=== PATIENT | female | born 1970 | race Caucasian/White ===

== ENCOUNTER 2017-10-30 07:30 | Outpatient (RCR) | payer OTHER, SELFPAY ==
--- NOTE | 2017-09-24 08:59 | HP.PTEVAL_ITS ---
Patient's Visit Information LISBETH VALDEZ is a 47 year old F referred to Physical Therapy by Peter ROSSI with a diagnosis of Back Pain. Date of Evaluation: 09/24/17 Physical Therapist: Lubna Gaston - Visit Plan Frequency: 2x /Week Duration: 4 Weeks Plan: 2X/ week for 4 weeks for core stability, L nerve root stretching, LE strength, functional activities with HEP and modalitites PRN - Subjective Subjective: Pt has LBP. It started 3 weeks ago and was doing injections with Dr Patino and was doing ok and now it is worse again. She has bulging discs L4- S1. That was confirmed on MRI and just had an x-ray last week. She reports that she has arthritis and bone spurs. Dr Patino said that she needed to do PT and then follow up with him. They arpproved a steroid injection which she will have to schedule with them. Pt has dull pain in butt cheek and sometimes into calf. Today pain is just in her back. He back is worse with all activity. Pt stands for almost 9 hours a day and then she sits down in her car toget home and it is then really tough to get up from sitting. Pt sleeps ok...sometimes it wakes her up achying and she has to get out of the bed. No N&T. Once in awhile she will get some numbess in last 3 toes but it goes away quicly. 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 Naproxin has not helped. She just wants to be able to play with her graddaughter but after she leaves she is in a lot of pain. - Pain Back Pain Intensity (Out of 10): 5 R leg pain Pain Intensity (Out of 10): 2 L leg pain Pain Intensity (Out of 10): 2 - Objective + Slump test on the L for pain in her back and -Slump test on the R. Gait: Walks with decrease stance time on the L LE. Trunk AROM: Flexion 100%, Ext 50 % with more extension on the R compared to the L. SB B 50% normal ROM, Rotation 75% normal ROM. LE MMT: hip flex B 4+/5, Knee ext 4/5 B, and Knee felx 4/5 B, hip abd L 4/5 and R 4+/5, B hip ext 4-/5. Prone lying: initially pt had pain right in center of her back. After lying there for 2 min pt reported that her back pain was not as bad. After another 2 min the pt reported that she had some center of back pain and then some R anterior thigh pain. Prone Press ups X 10 (abolished R thigh pain and then center of back pain was alitte relieved) Tried a second set of 10.....pt reported a weird pain in her R buttcheek.... - Goals Goal 1:: I HEP Goal Time Frame: 4-6 Weeks Goal 2:: Decrease back pain to 1/10 after a long work day Goal Time Frame: 4-6 Weeks Goal 3:: No pain with SLUMP test on the L Goal Time Frame: 4-6 Weeks Goal 4:: Walk with out an antalgic gait Goal Time Frame: 4-6 Weeks - Rehabilitation Potential Rehabilitation Potential: Good - Anticipated Interventions Patient/Client Instruction: Educate patient on: Condition, Plan of Care For the Purpose of:: To decrease pain, To decrease swelling/inflammation, To increase ROM, To improve nutrient delivery to tissue, To improve muscle performance and motor function, To improve ability to perform ADL's, To increase tolerance to activity/condition/position, To improve performance and independence with ADL's, To improve gait and locomotor functions, To improve health of tissue, To increase flexibility/ROM Therapeutic Exercise to Include: Strength training, Body mechanics, Postural training, Flexibilty training, Gait and locomotor training, Neuromotor development, Active ROM, Dynamic Lumbar Stabilization For the Purpose of:: To decrease pain, To decrease swelling/inflammation, To increase ROM, To improve nutrient delivery to tissue, To improve muscle performance and motor function, To increase tolerance to activity/condition/ position, To improve gait and locomotor functions, To improve health of tissue, To decrease soft tissue restriction, To increase flexibility/ROM Functional Training to Include: Gait training For the Purpose of:: To improve gait and locomotor functions IF ES: Yes Cryotherapy (ice pack, ice massage): Yes Thermo therapy (hot pack): Yes Ultrasound (thermal/non thermal): Yes For the Purpose of:: To decrease pain, To decrease swelling/inflammation, To increase ROM, To improve nutrient delivery to tissue Thank you for the opportunity to evaluate your patient. For Medicare and Medicare HMO plans, please review the plan of care and approve it. It will need to be FAXED BACK to us at [phone] for Medicare purposes. Please let me know if there are questions or concerns regarding this plan of care. Physician Signature: Date:
--- NOTE | 2018-02-01 14:12 | HP.PTDCNRP_ITS ---
HP - Discharge Summary (1) - Patient Information LISBETH VALDEZ was seen in my office for initial evaluation on 09/24/17. The following Plan of Care was established for this patient: Initial Frequency: 2x /Week Initial Duration: 4 Weeks - Anticipated Interventions Patient/Client Instruction: Educate patient on: Condition, Plan of Care For the Purpose of:: To decrease pain, To decrease swelling/inflammation, To increase ROM, To improve nutrient delivery to tissue, To improve muscle performance and motor function, To improve ability to perform ADL's, To increase tolerance to activity/condition/position, To improve performance and independence with ADL's, To improve gait and locomotor functions, To improve health of tissue, To increase flexibility/ROM Therapeutic Exercise to Include: Strength training, Body mechanics, Postural training, Flexibilty training, Gait and locomotor training, Neuromotor development, Active ROM, Dynamic Lumbar Stabilization For the Purpose of:: To decrease pain, To decrease swelling/inflammation, To increase ROM, To improve nutrient delivery to tissue, To improve muscle performance and motor function, To increase tolerance to activity/condition/ position, To improve gait and locomotor functions, To improve health of tissue, To decrease soft tissue restriction, To increase flexibility/ROM Functional Training to Include: Gait training For the Purpose of:: To improve gait and locomotor functions IF ES: Yes Cryotherapy (ice pack, ice massage): Yes Thermo therapy (hot pack): Yes Ultrasound (thermal/non thermal): Yes For the Purpose of:: To decrease pain, To decrease swelling/inflammation, To increase ROM, To improve nutrient delivery to tissue This patient was last seen in our office 10/30/17. Pertinent comments regarding their Physical therapy will appear below: [facility] as pt was ill for her last appointment and did not reschedule At this point I will be discontinuing this patient from physical therapy. I would be happy to see this patient again in the future if found appropriate by the physician. Thank you! Lubna Gaston
== END 2017-10-30 19:00 | disposition home or self-care (01) ==
LOC: PT 07:30
PROVIDERS: Family Provider Family Medicine; PCP Family Medicine; Visit Provider Anesthesiology Pain Medicine
DX: M54.9 Dorsalgia, unspecified (principal)
CPT/HCPCS: 97110; 97161

== ENCOUNTER → 2018-05-22 08:24 | Outpatient (CLI) | payer OTHER, SELFPAY ==
[2018-05-22 12:11] LABS: Absolute Lymphocyte Count 2.47 X10^3/ul (0.83-4.51); Absolute Neutrophil Count 5.7 X10^3/uL (2.0-7.7); Basophil# 0.03 X10^3/uL; Basophil% 0.3 % (0-1); Eosinophil# 0.09 X10^3/uL; Hematocrit 40.2 % (37-47); Hemoglobin 13.1 g/dl (12.0-15.0); Lymphocyte # 2.47 X10^3/ul (4.0); Lymphocyte % 28.4 % (19-41); Mean Corp Hgb Conc 32.6 g/gl (32-36); Mean Corpuscular Hgb 30.3 pg (27.0-32.0); Mean Corpuscular Volume 93.1 fL (81-99); Mean Platelet Vol. 9.3 fl (6.2-12.0); Monocyte# 0.45 X10^3/uL; Monocyte% 5.2 % (0-10); Neutrophil # 5.65 X10^3/uL (2.7-7.7); POSITIVE COUNT NO; POSITIVE DIFFERENTIAL NO; POSITIVE MORPHOLOGY NO; Platelet Count 399 K/mm3 (150-450); RBC Distribution Width CV 13.7 % (11.6-14.6); RBC Distribution Width SD 46.7 fl (35.1-43.9); Red Blood Count 4.32 M/mm3 (4.2-5.4); White Blood Count 8.7 K/mm3 (4.4-11.0)
[2018-05-22 12:34] LABS: AST(SGOT) 15 U/L (15-37); Alanine Aminotransfer ALT/SGPT 26 U/L (13-56); Albumin, Serum 3.6 g/dL (3.2-5.0); Alkaline Phosphatase 96 U/L (45-117); Anion Gap 9 (5-15); BUN 23 mg/dL (7-18); BUN/Creat Ratio 33.3 RATIO (10-20); Chloride 108 mmol/L (98-107); Cholesterol 176 mg/dL (200); Creatinine, Serum 0.69 mg/dL (0.55-1.02); EST Glomerular Filtration Rate 96 mL/min (>60); Est Glom Filt Rate - Afr Amer 116 mL/min (>60); Globulin 3.5 g/dL (2.2-4.2); Glucose 86 mg/dL (74-106); High Density Lipoprotein 51 mg/dL; Magnesium 2.2 mg/dL (1.6-2.6); Protein, Total 7.1 g/dL (6.4-8.2); Sodium Level 142 mmol/L (136-145); T4 Free Direct 0.96 ng/dL (0.76-1.46); Thyroid Stim Hormone (TSH) 3.19 uIU/mL (0.358-3.74); Triglycerides 102 mg/dL; Very Low Density Lipoprotein 20 mg/dL (5-40)
== END ==
PROVIDERS: Family Provider Family Medicine; PCP Family Medicine; Visit Provider Family Medicine
DX: Z00.01 Encounter for general adult medical examination with abnormal findings (principal); R00.2 Palpitations; R53.83 Other fatigue; I34.1 Nonrheumatic mitral (valve) prolapse; Z72.0 Tobacco use
CPT/HCPCS: 36415; 80053; 80061; 82533; 83735; 84439; 84443; 85025

== ENCOUNTER → 2018-05-29 08:57 | Outpatient (CLI) | payer OTHER, SELFPAY | PROVIDERS: Family Provider Family Medicine; PCP Family Medicine; Visit Provider Family Medicine | DX: R00.2 Palpitations (principal); I34.1 Nonrheumatic mitral (valve) prolapse | CPT/HCPCS: 93225; 93226 ==

== ENCOUNTER → 2018-08-05 11:58 | Outpatient (CLI) | payer OTHER, SELFPAY ==
--- NOTE | 2018-08-05 12:00 | ECHOD_ITS ---
Reason For Study: Palpitations Procedure This was a 2D Doppler, Color Flow transthoracic echocardiogram. Exam performed in department. Left Ventricle Normal LV size. Left ventricular systolic function is normal. The estimated ejection fraction is 60 %. Transmitral and pulmonary venous doppler flow suggestive of impaired relaxation of left ventricle. Transmitral diastolic flow velocities suggest mild (stage 1) diastolic dysfunction (reversed pattern). No regional wall motion abnormalities noted. Right Ventricle Normal RV size. Normal systolic function. Atria Normal left atrium. Normal right atrium. Mitral Valve Normal mitral valve. Tricuspid Valve Normal tricuspid valve. Aortic Valve Trisinus/trileaflet aortic valve. Pulmonic Valve Normal pulmonic valve. Great Vessels Normal aortic root. The pulmonary artery is normal size. Normal inferior vena cava. Pericardium/Pleural No pericardial effusion. MMode/2D Measurements & Calculations LVIDd: 4.7 cm IVSd: 0.95 cm Ao root diam: 3.1 cm LVIDs: 3.5 cm LVPWd: 0.89 cm RVDd: 3.1 cm FS: 25.3 % LAV(MOD-bp): 33.3 ml LVAd ap4: 25.6 cm2 SV(MOD-sp4): 37.7 ml LAV(MOD-bp) Indexed: 18.0 ml/m2 EDV(MOD-sp4): 72.1 ml LAV(MOD-sp2): 32.8 ml EDV(sp4-el): 73.7 ml LAV(MOD-sp4): 29.9 ml LVAs ap4: 15.9 cm2 ESV(MOD-sp4): 34.5 ml ESV(sp4-el): 34.4 ml EF(MOD-sp4): 52.2 % EF(sp4-el): 53.4 % SV(sp4-el): 39.3 ml LA A4 area: 13.6 cm2 LA dimension(2D): 3.4 cm RA A4 area: 11.1 cm2 Doppler Measurements & Calculations MV E max oswaldo: 64.6 cm/sec Lat Peak E' Oswaldo: 14.5 cm/sec Med Peak E' Oswaldo: 6.1 cm/sec MV A max oswaldo: 80.5 cm/sec E/E' lat: 4.5 E/E' med: 10.5 MV E/A: 0.80 Ao V2 max: 134.5 cm/sec LV V1 max: 105.2 cm/sec PA V2 max: 80.9 cm/sec Ao max P.2 mmHg LV V1 max P.4 mmHg Ao V2 mean: 102.1 cm/sec Ao mean P.4 mmHg Ao V2 VTI: 27.9 cm Interpretation Summary Normal LV size. Left ventricular systolic function is normal. The estimated ejection fraction is 60 %. Transmitral and pulmonary venous doppler flow suggestive of impaired relaxation of left ventricle Transmitral diastolic flow velocities suggest mild (stage 1) diastolic dysfunction (reversed pattern). Ordering Physician: Kristan Lewis Referring Physician: Ambrose Olivares Performed By: Susan Lopez RDCS, RVT
--- NOTE | 2018-08-05 12:35 | STRESSREP ---
Stress Test Report Exercise stress test. 47-year-old lady with a history of palpitations. Stress protocol: Resting EKG demonstrates normal sinus rhythm with a rate of 79 bpm normal intervals are noted resting blood pressure 126/78 mmHg. The patient exercised according to regular Wyatt protocol for total duration of 6 minutes completing stage II of the Wyatt protocol the maximum heart rate attained was 171 bpm which was 99% of maximum predicted heart rate the maximum workload was 7 metabolic equivalents. The patient maintained sinus rhythm throughout the recording. At rest there were nonspecific ST-T wave changes noted with normally the criteria for ischemia. At peak exercise there was approximately [address] depression noted in leads II, III and aVF V5 and V6. The above appears to improved to upsloping changes during recovery. No chest pain was noted. The resting blood pressure 126/78 with a peak blood pressure of 146/70 mmHg rate pressure product was 24,900. No clinical angina was noted the test was terminated due to leg pain. Conclusion: Exercise stress test with EKG changes suggestive of ischemia at a moderate workload. Good blood pressure response to exercise. No arrhythmias noted.
--- NOTE | 2018-08-05 12:40 | STRESSREP_ITS ---
Stress Test Report Exercise stress test. 47-year-old lady with a history of palpitations. Stress protocol: Resting EKG demonstrates normal sinus rhythm with a rate of 79 bpm normal intervals are noted resting blood pressure 126/78 mmHg. The patient exercised according to regular Wyatt protocol for total duration of 6 minutes completing stage II of the Wyatt protocol the maximum heart rate attained was 171 bpm which was 99% of maximum predicted heart rate the maximum workload was 7 metabolic equivalents. The patient maintained sinus rhythm throughout the recording. At rest there were nonspecific ST-T wave changes noted with normally the criteria for ischemia. At peak exercise there was approximately [address] depression noted in leads II, III and aVF V5 and V6. The above appears to improved to upsloping changes during recovery. No chest pain was noted. The resting blood pressure 126/78 with a peak blood pressure of 146/70 mmHg rate pressure product was 24,900. No clinical angina was noted the test was terminated due to leg pain. Conclusion: Exercise stress test with EKG changes suggestive of ischemia at a moderate workl oad. Good blood pressure response to exercise. No arrhythmias noted.
--- OUTSIDE RECORDS SUMMARY | 2018-09-28 18:16 | XMS RPT_ITS ---
:1970 Author Organization [place] Support Name Relationship Address Phone MABLE MARATHON Unavailable [address] + [place] [address] AYANNA VALDEZ Unavailable [address] + [place] [address] MABLE MARATHON Unavailable [address] + [place] [address] AYANNA VALDEZ Unavailable [address] + [place] [address] DALES MARATHON Unavailable [address] + [place] [address] AYANNA VALDEZ Unavailable [address] + [place] [address] DALES MARATHON Unavailable [address] + [place] [address] AYANNA VALDEZ Unavailable [address] + [place] [address] DALES MARATHON Unavailable [address] + [place] [address] AYANNA VALDEZ Unavailable [address] + [place] [address] DALES MARATHON Unavailable [address] + [place] [address] AYANNA VALDEZ Unavailable [address] + [place] [address] DALES MARATHON Unavailable [address] + [place] [address] AYANNA VALDEZ Unavailable [address] + [place] [address] DALES MARATHON Unavailable [address] + [place] [address] AYANNA VALDEZ Unavailable [address] + [place] [address] DALES MARATHON Unavailable [address] + [place] [address] COURTNEY AYANNA Unavailable [address] + [place] [address] DALES MARATHON Unavailable [address] + [place] [address] AYANNA VALDEZ Unavailable [address] + [place] [address] DALES MARATHON Unavailable [address] + [place] [address] COURTNEY AYANNA Unavailable [address] + [place] [address] DALES MARATHON Unavailable [address] + [place] [address] COURTNEY AYANNA Unavailable [address] + [place] [address] DALES MARATHON Unavailable [address] + [place] [address] COURTNEY AYANNA Unavailable [address] [phone] [place] [address] DALES MARATHON Unavailable [address] + [place] [address] COURTNEY AYANNA Unavailable [address] [phone] [place] [address] Care Team Providers Name Role Phone Peter Patino Attending Unavailable Peter Patino Referring Unavailable Ambrose Olivares Primary Care Unavailable Peter Patino Attending Unavailable Peter Patino Referring Unavailable Ambrose Olivares Primary Care Unavailable Ambrose Olivares Attending Unavailable Ambrose Olivares Primary Care Unavailable Ambrose Olivares Attending Unavailable Ambrose Olivares Referring Unavailable Ambrose Olivares Primary Care Unavailable Lio Renteria Attending Unavailable Ambrose Olivares Referring Unavailable Ana Serrano Attending Unavailable Martin, [place] Attending Unavailable Elise, Ambrose Referring Unavailable Martin, Nicolás Attending Unavailable Martin, Nicolás Referring Unavailable Elise, Ambrose Primary Care Unavailable Elise, Ambrose Attending Unavailable Elise, Ambrose Referring Unavailable Elise, Ambrose Primary Care Unavailable Martin, [place] Attending Unavailable Martin, Nicolás Referring Unavailable Elise, Ambrose Primary Care Unavailable Martin, Nicolás Attending Unavailable Martin, [place] Referring Unavailable Elise, Ambrose Primary Care Unavailable Martin, Nicolás Consulting Unavailable Martin, [place] Attending Unavailable Martin, Nicolás Referring Unavailable Elise, Ambrose Primary Care Unavailable Martin, [place] Attending Unavailable Elise, Ambrose Referring Unavailable Ana Serrano Attending Unavailable PROBLEMS PROBLEMS DATE TYPE CONDITION / CODE ATTENDING STATUS SOURCE 08/09/2018 Unknown R00.2 - Palpitations / Martin, Nicolás Active [facility] R00.2(ICD-10) [facility] Repository 08/09/2018 Unknown I34.1 - Nonrheumatic Martin, Nicolás Active [facility] mitral (valve) Community prolapse / Hospital I34.1(ICD-10) Repository 08/09/2018 Unknown Z72.0 - Tobacco use / Martin, Nicolás Active [facility] Z72.0(ICD-10) [facility] Repository 08/09/2018 Unknown I47.1 - Martin, [place] Active [place] Supra[facility]ricular [facility] tachycardia / Hospital I47.1(ICD-10) Repository 08/09/2018 Unknown I47.2 - Ventricular Martin, Nicolás Active [facility] tachycardia / Community I47.2(ICD-10) Hospital Repository 08/09/2018 Unknown I73.9 - Peripheral Martin, Nicolás Active [facility] vascular disease, Community unspecified / Hospital I73.9(ICD-10) Repository 08/09/2018 Unknown R07.9 - Chest pain, Martin, Nicolás Active [facility] unspecified / Community R07.9(ICD-10) Hospital Repository 08/09/2018 Unknown R94.39 - Abnormal Martin, [place] Active [place] result of other [facility] function study / Repository R94.39(ICD-10) 05/22/2018 Unknown R53.83 - Other fatigue Ambrose Olivares Active [facility] / R53.83(ICD-10) [facility] Repository 05/22/2018 Unknown Z00.01 - Encounter for Ambrose Olivares Active [place] [facility] examination with Hospital abnormal findings / Repository Z00.01(ICD-10) 02/01/2018 Unknown M54.9 - Dorsalgia, Basali, Ayman Active [facility] unspecified / Community M54.9(ICD-10) Hospital Repository PROCEDURES PROCEDURES No Procedure Records FoundRESULTS RESULTS OFFICE VISIT REPORT Observed: 08/08/2018 Status: F Source: [facility]I 8:21 AM [facility]POS[facility] Services [address] [place] [address] OFFICE VISIT Date of Service: MR#: [id number] Acct: [id number] Patient: LISBETH VALDEZ Rep #: [id number] : 1970 Provider: Ana Serrano Age/Sex: 47/F Location: [facility] [place] Status: Signed Intake Intake Visit Reasons: Amb Documentation Allergies egg Allergy (Verified 07/12/18 10:17) Unknown lactose Allergy (Verified 07/12/18 10:17) Food Allergy Medications Montelukast [Singulair] 10 mg PO DAILY 05/31/16 [History Confirmed 07/12/18] Venlafaxine HCl [Effexor] 75 mg PO DAILY 05/31/16 [History Confirmed 07/12/18] ascorbic acid (vitamin C) 1,000 mg tablet 1 g PO DAILY tab 07/11/18 [History Confirmed 07/12/18] aspirin 81 mg tablet,delayed release 81 mg PO DAILY 07/11/18 [History Confirmed 07/12/18] metoprolol succinate ER 50 mg tablet,extended release 24 hr 50 mg PO DAILY 07/11/18 [History Confirmed 07/12/18] multivitamin tablet 1 tab PO DAILY 07/11/18 [History Confirmed 07/12/18] topiramate XR 25 mg capsule,extended release 24 hr 25 mg PO BID cap 07/11/18 [History Confirmed 07/12/18] calcium carb-vit D3-minerals 600 mg calcium-400 unit tablet 1 tab PO DAILY 07/12/18 [History Confirmed 07/12/18] cholecalciferol (vitamin D3) 1,000 unit capsule 1,000 unit PO DAILY 07/12/18 [History Confirmed 07/12/18] meloxicam 15 mg tablet 15 mg PO DAILY 07/12/18 [History Confirmed 07/12/18] clopidogrel 75 mg tablet 75 mg PO DAILY #30 tab 08/06/18 [Rx Confirmed 08/06/18] Nursing Note Cardiac catheterization teaching completed and instructions reviewed. 08/08/18 0821 <Electronically signed by Rosalino PATEL> Date Rosalino PATEL Cosigner Signature: Date (if applicable) CC: CHEST PA AND LATERAL Observed: 08/08/2018 Status: F Source: [facility] 7:27 AM [facility] REPOSITORY [facility] Imaging Services [address] [place] [id number] Chest PA and Lateral MR#: [id number] Acct: [id number] Name: LISBETH VALDEZ Rep #: [id number] : 1970 F 47 From: Alexander Armendariz MD PCP: Ambrose Olivares DO Status: PRE [facility] Study: Chest PA and Lateral Date of Exam: 08/08/18 Exam# [id number] Ordering Dr: Nicolás Salazar MD STUDY: X-RAY CHEST REASON FOR EXAM: Female, 47 years old. Abnormal stress test. Chest pain. TECHNIQUE: PA and lateral views of the chest. COMPARISON: None. FINDINGS: The lungs are clear and expanded. Scattered calcified granulomas There is no demonstrated pleural abnormality. Normal size heart. Normal mediastinum and blanca. Normal visualized pulmonary arteries. Normal visualized aortic arch and descending thoracic aorta. Normal visualized thoracic spine. Normal visualized ribs, clavicles, and shoulders. There is no demonstrated abnormality of the visualized soft tissue structures of the upper abdomen. RAD/Chest PA and Lateral IMPRESSION: Normal x-ray examination of the chest. Electronically Signed: Alexander Armendariz MD at 10:42 EST Tel [phone], Service support , CC: Nicolás Salazar MD; Ambrose Olivares DO Client Business Manager: Signed CBC W/DIFF, AUTOMATED Collected: 08/08/2018 Status: F Source: NGOZI 7:23 AM [facility] REPOSITORY TYPE CODE TESTS RESULT OUT OF RANGE REFERENCE UNITS LAB L100.1000 4.4-11.0 K/mm3 Normal WBC 8.3 LAB L100.1200 4.2-5.4 M/mm3 Normal RBC 4.31 LAB L100.1300 12.0-15.0 g/dl Normal HGB 13.3 LAB L100.1400 37-47 % Normal HCT 40.0 LAB L100.1500 81-99 fL Normal MCV 92.8 LAB L100.1600 27.0-32.0 pg Normal MCH 30.9 LAB L100.1700 32-36 g/gl Normal MCHC 33.3 LAB L100.1810 11.6-14.6 % Normal RDW CV 12.8 LAB L100.1820 35.1-43.9 fl Normal RDW SD 41.9 LAB L100.1900 150-450 K/mm3 Normal PLT 411 LAB L100.2000 6.2-12.0 fl Normal MPV 9.3 LAB L100.2100 47-70 % Normal NEUT% 54.0 LAB L100.2200 19-41 % Normal LY% 36.2 LAB L100.2300 0-10 % Normal MONO% 7.5 LAB L100.2400 0-5 % Normal EO% 1.6 LAB L100.2500 0-1 % Normal BASO% 0.6 LAB L100.2550 0.0-0.9 % Normal IM GRAN % 0.100 Result Comment: IG% - Immature Granulocytes (promyelocytes, myelocytes and metamyelocytes) > 1% indicates that a LEFT SHIFT is Present. LAB L100.2620 2.0-7.7 X10 3/uL Normal Absolute Neut 4.5 LAB L100.2720 0.83-4.51 X10 3/ul Normal Absolute Lymph 3.00 Performed By: #### L100.0100 #### [facility] [address] [place], [place], [id number] BASIC METABOLIC Collected: 08/08/2018 Status: F Source: [facility] PROFILE (BMP) 7:23 AM [facility] REPOSITORY TYPE CODE TESTS RESULT OUT OF RANGE REFERENCE UNITS LAB L501.0100 74-106 mg/dL Normal GLU 85 Result Comment: Please note revised GLUCOSE reference range effective 2017. LAB L501.1000 7-18 mg/dL High BUN 25 LAB L501.1100 0.55-1.02 mg/dL Normal CREAT,SERUM 0.71 Result Comment: The validity of the calculated GFR AND GFRAA in patients over 70 years has not been determined. Clinical correlation is essential. LAB L501.1110 >60 mL/min Normal EST GFR 93 Result Comment: Non- GFR Calc LAB L501.1115 >60 mL/min Normal EST GFR - AA 112 Result Comment: GFR Calc LAB L501.1300 10-20 RATIO High BUN/CRE 35.1 LAB L501.2200 8.5-10.1 mg/dL CA Normal 8.9 LAB L501.5300 136-145 mmol/L NA Normal 144 LAB L501.5600 3.5-5.1 mmol/L K Normal 3.9 LAB L501.5900 98-107 mmol/L CL Normal 107 LAB L501.6100 21.0-32.0 mmol/L Normal CO2 28.0 LAB L501.6200 5-15 Normal GAP 9 Performed By: #### L500.2500 #### [facility] [address] [facility] [address] [place], [place], [address] PROTHROMBIN TIME W/INR Collected: 08/08/2018 Status: F Source: [place] 7:23 AM [facility] REPOSITORY TYPE CODE TESTS RESULT OUT OF RANGE REFERENCE UNITS LAB L300.4150 11.7-14.9 SECONDS Normal PROTIME 12.7 LAB L300.4200 Normal INR 1.0 Performed By: #### L300.3900 #### [facility] [address] [facility] [place], [address] ,SERUM,HCG QUALI. Collected: Status: F Source: NGOZI 08/08/2018 7:23 AM [facility] REPOSITORY Order Comment: Comments: please add to labs already drawn TYPE CODE TESTS RESULT OUT OF REFERENCE UNITS RANGE LAB L700.7000 0-9 Nonpreg Negative Normal HCGSQUAL NEGATIVE LAB L700.6700 =>Qualitative mIU/mL Normal HCG Qual 1 triggr Performed By: #### L700.6800 #### [facility] [address] [place], [address] ECHOCARDIOGRAM COMPLETE Observed: 08/05/2018 Status: F Source: NGOZI 3:12 PM [facility] REPOSITORY [facility] Cardiovascular Services [address] [place] [address] Echo Complete 08/05/18 1229 MR#: [id number] Acct: [id number] Name: LISBETH VALDEZ Rep #: [id number] : 1970 47 From: Nicolás Salazar MD Attending Dr: Nicolás Salazar MD Status: REG CLI Ordering Dr: Kristan Lewis Date: 08/05/18 Location: CVS Sex: F C Admitted: Reason For Study: Palpitations Procedure This was a 2D Doppler, Color Flow transthoracic echocardiogram. Exam performed in department. Left Ventricle Normal LV size. Left ventricular systolic function is normal. The estimated ejection fraction is 60 %. Transmitral and pulmonary venous doppler flow suggestive of impaired relaxation of left ventricle. Transmitral diastolic flow velocities suggest mild (stage 1) diastolic dysfunction (reversed pattern). No regional wall motion abnormalities noted. Right Ventricle Normal RV size. Normal systolic function. Atria Normal left atrium. Normal right atrium. Mitral Valve Normal mitral valve. Tricuspid Valve Normal tricuspid valve. Aortic Valve Trisinus/trileaflet aortic valve. Pulmonic Valve Normal pulmonic valve. Great Vessels Normal aortic root. The pulmonary artery is normal size. Normal inferior vena cava. Pericardium/Pleural No pericardial effusion. MMode/2D Measurements AND Calculations LVIDd: 4.7 cm IVSd: 0.95 cm Ao root diam: 3.1 cm LVIDs: 3.5 cm LVPWd: 0.89 cm RVDd: 3.1 cm FS: 25.3 % LAV(MOD-bp): 33.3 ml LVAd ap4: 25.6 cm2 SV(MOD-sp4): 37.7 ml LAV(MOD-bp) Indexed: 18.0 ml/m2 EDV(MOD-sp4): 72.1 ml LAV(MOD-sp2): 32.8 ml EDV(sp4-el): 73.7 ml LAV(MOD-sp4): 29.9 ml LVAs ap4: 15.9 cm2 ESV(MOD-sp4): 34.5 ml ESV(sp4-el): 34.4 ml EF(MOD-sp4): 52.2 % EF(sp4-el): 53.4 % SV(sp4-el): 39.3 ml LA A4 area: 13.6 cm2 LA dimension(2D): 3.4 cm RA A4 area: 11.1 cm2 Doppler Measurements AND Calculations MV E max oswaldo: 64.6 cm/sec Lat Peak E' Oswaldo: 14.5 cm/sec Med Peak E' Oswaldo: 6.1 cm/sec MV A max oswaldo: 80.5 cm/sec E/E' lat: 4.5 E/E' med: 10.5 MV E/A: 0.80 Ao V2 max: 134.5 cm/sec LV V1 max: 105.2 cm/sec PA V2 max: 80.9 cm/sec Ao max P.2 mmHg LV V1 max P.4 mmHg Ao V2 mean: 102.1 cm/sec Ao mean P.4 mmHg Ao V2 VTI: 27.9 cm Interpretation Summary Normal LV size. Left ventricular systolic function is normal. The estimated ejection fraction is 60 %. Transmitral and pulmonary venous doppler flow suggestive of impaired relaxation of left ventricle Transmitral diastolic flow velocities suggest mild (stage 1) diastolic dysfunction (reversed pattern). Ordering Physician: Kristan Lewis Referring Physician: Ambrose Olivares Performed By: Susan Lopez, NOEMY, RVT 08/05/18 0751 Date Nicolás Salazar MD CC: Nicolás Salazar MD; Ambrose Olivares DO; Kristan Lewis Date Dictated: 08/05/18 1229 Date Transcribed: 08/05/18 1511 Client Business Manager: Signed STRESS REPORT Observed: 08/05/2018 Status: F Source: NGOZI 12:41 PM [facility] REPOSITORY [facility] Cardiovascular Services [address] [place] [address] MR#: [id number] Acct: [id number] Name: LISBETH VALDEZ Rep #: [id number] : 1970 47 From: Nicolás Salazar MD Primary Care: Ambrose Olivares DO Status: REG CLI Ordering Dr: Sex: F C Stress Test Report Exercise stress test. 47-year-old lady with a history of palpitations. Stress protocol: Resting EKG demonstrates normal sinus rhythm with a rate of 79 bpm normal intervals are noted resting blood pressure 126/78 mmHg. The patient exercised according to regular Wyatt protocol for total duration of 6 minutes completing stage II of the Wyatt protocol the maximum heart rate attained was 171 bpm which was 99% of maximum predicted heart rate the maximum workload was 7 metabolic equivalents. The patient maintained sinus rhythm throughout the recording. At rest there were nonspecific ST-T wave changes noted with normally the criteria for ischemia. At peak exercise there was approximately [address] depression noted in leads II, III and aVF V5 and V6. The above appears to improved to upsloping changes during recovery. No chest pain was noted. The resting blood pressure 126/78 with a peak blood pressure of 146/70 mmHg rate pressure product was 24,900. No clinical angina was noted the test was terminated due to leg pain. Conclusion: Exercise stress test with EKG changes suggestive of ischemia at a moderate workload. Good blood pressure response to exercise. No arrhythmias noted. 08/05/18 1241 <Electronically signed by Nicolás Salazar MD> Date Nicolás Salazar MD CC: Nicolás Salazar MD; Ambrose Olivares DO Date Dictated: 08/05/18 1235 Date Transcribed: 08/05/18 1235 Client Business Manager: [place] Signed CARDIOLOGY VISIT Observed: 07/12/2018 Status: F Source: NGOZI REPORT 2:50 PM [facility] [address] [place] [address] OFFICE VISIT Date of Service: 07/12/18 MR#: [id number] Acct: [id number] Name: LISBETH VALDEZ Rep #: [id number] : 1970 Provider: Nicolás Salazar MD Age/Sex: 47/F [place] [facility] Status: Signed HPI HPI Chief Complaint: Initial visit Details: LISBETH VALDEZ, is a 47 F who presents to the office today for for initial visit. She is a pleasant lady with a history of palpitations as well as chest discomfort she complains of some of these chest pain episodes which are sharp and others which are dull. She is also been fatigued. She underwent a 48-hour Holter monitor which demonstrated rare premature atrial complexes as well as rare premature ventricular complexes. The patient had one 7 beat run of an atrial tachycardia at a rate of 164 bpm. She has had no maría elena syncopal spells. She had previously been using tobacco products but this has been discontinued. She has had no maría elena syncopal episodes. Her physical exam today demonstrates clear lung talbot regular rate and rhythm no pedal edema her electrocardiogram at rest demonstrates sinus bradycardia with a rate of 56 bpm. Intake Vital Signs07/12/18 Height 5 ft 3 in Intake Visit Reasons: PCP ref'd for tachy, BLE edema, needs stress Allergies egg Allergy (Verified 07/12/18 10:17) Unknown lactose Allergy (Verified 07/12/18 10:17) Food Allergy Medications Montelukast [Singulair] 10 mg PO DAILY 05/31/16 [History Confirmed 07/12/18] Venlafaxine HCl [Effexor] 75 mg PO DAILY 05/31/16 [History Confirmed 07/12/18] ascorbic acid (vitamin C) 1,000 mg tablet 1 g PO DAILY tab 07/11/18 [History Confirmed 07/12/18] aspirin 81 mg tablet,delayed release 81 mg PO DAILY 07/11/18 [History Confirmed 07/12/18] metoprolol succinate ER 50 mg tablet,extended release 24 hr 50 mg PO DAILY 07/11/18 [History Confirmed 07/12/18] multivitamin tablet 1 tab PO DAILY 07/11/18 [History Confirmed 07/12/18] topiramate XR 25 mg capsule,extended release 24 hr 25 mg PO BID cap 07/11/18 [History Confirmed 07/12/18] calcium carb-vit D3-minerals 600 mg calcium-400 unit tablet 1 tab PO DAILY 07/12/18 [History Confirmed 07/12/18] cholecalciferol (vitamin D3) 1,000 unit capsule 1,000 unit PO DAILY 07/12/18 [History Confirmed 07/12/18] meloxicam 15 mg tablet 15 mg PO DAILY 07/12/18 [History Confirmed 07/12/18] [facility] Medical History Claudication (Chronic) Nonrheumatic mitral valve prolapse (Chronic) Paroxysmal supraventricular tachycardia (Chronic) Nonsustained ventricular tachycardia (Chronic) Nicotine abuse (Chronic) Anxiety and depression (Chronic) Lumbar spondylosis (Chronic) Obesity (Chronic) Osteoarthritis (Chronic) Surgical History H/O arthroscopy of left knee (Resolved) History of (Resolved) History of hysterectomy (Resolved) History of rhinoplasty (Resolved) Family History Father Hypertension Mother Heart disease aneurysm CAD (coronary artery disease) Social History Smoking Status: Former smoker quit date: 07/01/18 ROS Const Const: Positive for fatigue (New onset over the past 3 month); negative for weakness, difficulty sleeping, frequent falls, excessive sweating or headache(s) Eyes Eyes: Negative for loss of peripheral vision, transient loss of vision, blurry vision, tunnel vision or double vision ENT ENT: Negative for headache(s), dizziness, Nosebleed/epistaxis or balance problems Cardio Chest Pain: Yes (New onset over the past 3 months) Frequency: daily, weekly Character: sharp, dull Onset: at rest, exercise Location: left chest Duration: continuous, hours Palpitations: Yes (Palpitations cause fatigue and SOB. Increase over past 3 months.) feels like its: fast, thumping Edema: None Muscle aches with walking: Bilateral (weakness with exertion, resolved with rest.) Resp Respiratory: Negative for SOB with activity, SOB at rest, SOB orthopnea\SOB lying down, paroxysmal nocturnal dyspnea or Cough GI GI: Negative nausea, heartburn, black,tarry stools or vomiting : Negative for hematuria Musc Musc: Negative for balance problems, muscle aches/ myalgia, muscle weakness or joint pain Skin Skin: Negative non-healing lesions, unusual bruising or rash Neuro Neuro: Positive for near syncope (Occasional episodes w/o palpitations); negative for weakness, frequent falls, headache(s), blurry vision, double vision, dizziness, lightheadedness, orthostatic symptoms, syncope or lack of coordination Nestor Hematologic/Lymphatic: Negative for easy bruising or easy bleeding Endo Endo: Positive for fatigue (New onset over the past 3 month); negative for excessive sweating or increased thirst/drinking Psych Psych: Negative for anxiety or depression Allergy Allergy/Immunology: Negative for hives, Negative for rash Cardiology Exam Const Appearance: cooperative, healthy appearing, well developed, well groomed and no acute distress Nutritional Appearance: well nourished and average body habitus Orientation: alert, awake and oriented x3 Head Head: normal to inspection, normocephalic and atraumatic Ears: hearing grossly normal bilaterally and external ears normal Nose: external nose normal, nasal mucous membranes and turbinates normal, nares normal, septum normal, no nasal discharge Face and Sinus: face symmetric Mouth: oral mucosae normal, tongue normal, oropharynx normal and moist mucous membranes Teeth and gingiva: dentition normal Throat: posterior oropharynx normal, tonsils normal and uvula midline Eyes General: appearance normal, both eyes and all related structures Eyelids: eyelids normal Conjunctivae: conjunctivae normal Pupils: PERRL, normal by confrontation and accommodation normal EOM: EOM intact bilaterally Neck Neck: normal visual inspection, trachea midline and no JVD JVD: +5 Carotids: normal carotid upstroke and bounding pulses Chest Chest inspection: normal inspection of the chest, symmetric chest movement and normal respiratory effort Auscultation: Bilateral: Clear to Auscultation Cardio Palpation: normal PMI Rate: regular rate Rhythm: regular rhythm Heart sounds: S1 normal, S2 normal and normal, physiologic split S2; negative rub, gallop or murmur GI GI: normal to inspection, soft, no hepatosplenomegaly and bowel sounds present Neuro General: alert, awake, oriented x3, no focal sensory deficit, gait normal and moves all extremities Skin Skin: no rashes or lesions noted Extremities Pulses: Normal: Right Femoral Pulse, Left Femoral Pulse, Right Dorsalis Pedis Pulse, Left Dorsalis Pedis Pulse, Right Posterior Tibial Pulse, Left Posterior Tibial Pulse, Right Radial Pulse, Left Radial Pulse Lower Extremity Edema: None: Bilateral Musculoskel Musculoskeletal: No joint tenderness Psych Psychological: normal affect Assessment AND Plan 1. Paroxysmal supraventricular tachycardia I47.1 Plan She is having symptoms of palpitations and had a short burst of a paroxysmal supraventricular tachyarrhythmia. I suspect some of these really a side effect of some of the medications that she has been taking. Her Holter monitor was not particularly remarkable my recommendation would be for us to obtain a stress echocardiogram to assess a her left ventricular function and be any propensity to tachyarrhythmia when she exercises. If the above is normal I would suggest that we discontinue the beta-lc and the aspirin. I have also discussed with her about the Topamax as well as the venlafaxine. The Topamax can have some issues with abnormal heart rate and the venlafaxine unfortunately may be associated with weight gain as you know. Thank you for allowing me to participate in the care of your patient. Please don't hesitate to call if any issues arise Orders Orders: Plan Detail Other Orders Orders: Follow Up prn Coding Level of Care Code Off vis,new,level 4 Diagnoses Paroxysmal supraventricular tachycardia I47.1 Coding Level of Care Code Off vis,new,level 4 Diagnoses Paroxysmal supraventricular tachycardia I47.1 07/12/18 1450 <Electronically signed by Nicolás Salazar MD> Date Nicolás Salazar MD Cosigner Signature: Date (if applicable) CC: Ambrose Olivares DO 12 LEAD EKG PERFORMED Observed: 07/12/2018 Status: F Source: NGOZI BY CHAMP 12:18 PM [facility] RE[facility] [place] [address] [place] [address] 12 Lead EKG performed by CHAMP 07/12/187 MR#: [id number] Acct: [id number] Name: LIBSETH VALDEZ Rep #: [id number] : 1970 47 From: Nicolás Salazar MD Attending Dr: Martin WARNER,Nicolás Status: DEP AMB Ordering Dr: Nicolás Salazar MD Date: 07/12/18 [place] [facility] Sex: F C Admitted[place] [facility] E[place] performed by [facility] Sinus Bradycardia -Short AR syndrome Rafat = 114BORDERLINE RHYTHM 07/18/18 1556 <Electronically signed by Nicolás Salazar MD> Date Nicolás Salazar MD CC: Ambrose Olivares DO Date Dictated: 07/12/181216 Date Transcribed: 07/12/181216 Client Business Manager: CO Signed CBC W/DIFF, AUTOMATED Collected: 05/22/2018 Status: F Source: NGOZI 8:26 AM [facility] RE[facility] TYPE CODE TESTS RESULT OUT OF RANGE REFERENCE UNITS LAB L100.1000 4.4-11.0 K/mm3 Normal WBC 8.7 LAB L100.1200 4.2-5.4 M/mm3 Normal RBC 4.32 LAB L100.1300 12.0-15.0 g/dl Normal HGB 13.1 LAB L100.1400 37-47 % Normal HCT 40.2 LAB L100.1500 81-99 fL Normal MCV 93.1 LAB L100.1600 27.0-32.0 pg Normal MCH 30.3 LAB L100.1700 32-36 g/gl Normal MCHC 32.6 LAB L100.1810 11.6-14.6 % Normal RDW CV 13.7 LAB L100.1820 35.1-43.9 fl High RDW SD 46.7 LAB L100.1900 150-450 K/mm3 Normal PLT 399 LAB L100.2000 6.2-12.0 fl Normal MPV 9.3 LAB L100.2100 47-70 % Normal NEUT% 65.0 LAB L100.2200 19-41 % Normal LY% 28.4 LAB L100.2300 0-10 % Normal MONO% 5.2 LAB L100.2400 0-5 % Normal EO% 1.0 LAB L100.2500 0-1 % Normal BASO% 0.3 LAB L100.2550 0.0-0.9 % Normal IM GRAN % 0.100 Result Comment: IG% - Immature Granulocytes (promyelocytes, myelocytes and metamyelocytes) > 1% indicates that a LEFT SHIFT is Present. LAB L100.2620 2.0-7.7 X10 3/uL Normal Absolute Neut 5.7 LAB L100.2720 0.83-4.51 X10 3/ul Normal Absolute Lymph 2.47 Performed By: #### L100.0100 #### [facility] [address] [place], [address] CORTISOL SERUM Collected: 05/22/2018 Status: F Source: [place] 8:26 AM [facility] TYPE CODE TESTS RESULT OUT OF RANGE REFERENCE UNITS LAB L509.6000 3.09-22.40 ug/dL Normal CORTISOL 9.50 Result Comment: Adult (AM) 4.30 - 22.40 ug/dL Adult (PM) 3.09 - 16.66 ug/dL Performed By: #### L509.6000 #### [facility] [address] [place], [address] COMPREHENSIVE METABOLIC Collected: 05/22/2018 Status: F Source: [facility] 8:26 AM [facility] TYPE CODE TESTS RESULT OUT OF RANGE REFERENCE UNITS LAB L501.0100 74-106 mg/dL Normal GLU 86 Result Comment: Please note revised GLUCOSE reference range effective 2017. LAB L501.1000 7-18 mg/dL High BUN 23 LAB L501.1100 0.55-1.02 mg/dL Normal CREAT,SERUM 0.69 Result Comment: The validity of the calculated GFR AND GFRAA in patients over 70 years has not been determined. Clinical correlation is essential. LAB L501.1110 >60 mL/min Normal EST GFR 96 Result Comment: Non- GFR Calc LAB L501.1115 >60 mL/min Normal EST GFR - AA 116 Result Comment: GFR Calc LAB L501.1300 10-20 RATIO High BUN/CRE 33.3 LAB L501.1500 6.4-8.2 g/dL T Normal PROT 7.1 LAB L501.1800 3.2-5.0 g/dL Normal ALB 3.6 LAB L501.1950 2.2-4.2 g/dL Normal GLOB 3.5 LAB L501.2000 0.9-2.4 RATIO Normal A/G 1.0 LAB L501.2200 8.5-10.1 mg/dL CA Normal 9.0 LAB L501.4100 15-37 U/L Normal AST 15 LAB L501.4305 45-117 U/L Normal ALK P 96 LAB L501.4405 13-56 U/L Normal ALT 26 LAB L501.4600 0.20-1.00 mg/dL T Normal BILI 0.30 LAB L501.5300 136-145 mmol/L NA Normal 142 LAB L501.5600 3.5-5.1 mmol/L K Normal 4.0 LAB L501.5900 98-107 mmol/L High CL 108 LAB L501.6100 21.0-32.0 mmol/L Normal CO2 25.0 LAB L501.6200 5-15 Normal GAP 9 Performed By: #### L500.4050, L500.4100, L501.5200, L501.9520, L506.0400 #### [facility] [address] [place], [address] LIPID PROFILE Collected: 05/22/2018 Status: F Source: [place] 8:26 AM [facility] RE[facility] TYPE CODE TESTS RESULT OUT OF RANGE REFERENCE UNITS LAB L501.4900 200 mg/dL Normal CHOL 176 Result Comment: <200 mg/dL Desirable 200-240 mg/dL Borderline >240 mg/dL High Risk LAB L501.5000 mg/dL Normal TRIG 102 Result Comment: The drugs N-Acetylcysteine and Metamizole may falsely depress this assay. Serum Triglycerides Reference Interval Normal <150 mg/dL Borderline high 150 - 199 mg/dL High 200 - 499 mg/dL Very High > or = 500 mg/dL LAB L501.6400 mg/dL Normal HDL 51 Result Comment: The drugs N-Acetylcysteine and Metamizole may falsely depress this assay. Reference Range HDL <40 mg/dL Low HDL Cholesterol HDL >or= 60 mg/dL High HDL Cholesterol LAB L501.6500 0-130 mg/dL Normal LDL 105 LAB L501.6600 5-40 mg/dL Normal VLDL 20 Performed By: #### L500.4050, L500.4100, L501.5200, L501.9520, L506.0400 #### [facility] [address] [place], [address] MAGNESIUM Collected: 05/22/2018 Status: F Source: [place] 8:26 AM [facility] RE[facility] TYPE CODE TESTS RESULT OUT OF RANGE REFERENCE UNITS LAB L501.5200 1.6-2.6 mg/dL Normal MG 2.2 Performed By: #### L500.4050, L500.4100, L501.5200, L501.9520, L506.0400 #### [facility] [address] [place], [address] THYROID STIM HORMONE Collected: 05/22/2018 Status: F Source: [place] (TSH) 8:26 AM [facility] RE[facility] TYPE CODE TESTS RESULT OUT OF RANGE REFERENCE UNITS LAB L501.9520 0.358-3.74 uIU/mL Normal TSH 3.19 Performed By: #### L500.4050, L500.4100, L501.5200, L501.9520, L506.0400 #### [facility] [address] [place], [address] T4 FREE DIRECT Collected: 05/22/2018 Status: F Source: [place] 8:26 AM [facility] TYPE CODE TESTS RESULT OUT OF RANGE REFERENCE UNITS LAB L506.0400 0.76-1.46 ng/dL Normal T4 FREE 0.96 DIRECT Performed By: #### L500.4050, L500.4100, L501.5200, L501.9520, L506.0400 #### [facility] [address] [place], [address] INITAL EVALUATION (1) Observed: 09/25/2017 Status: F Source: [place]ER[place] - PT 2:57 PM [facility] [address] [place] [address] Fax REHABILITATION SERVICES INITIAL EVALUATION MR#: [id number] Acct: [id number] Name: LISBETH VALDEZ Rep #: [id number] : 1970 47 From: Lubna Gaston MPT Referring Dr.: Peter Patino MD Status: REG RCR Insurance: [employer] JUST FOR ME SELF PAY INSURANCE Patient's Visit Information LISBETH VALDEZ is a 47 year old F referred to Physical Therapy by Peter ROSSI with a diagnosis of Back Pain. Date of Evaluation: 09/24/17 Physical Therapist: Lubna Gaston - Visit Plan Frequency: 2x /Week Duration: 4 Weeks Plan: 2X/ week for 4 weeks for core stability, L nerve root stretching, LE strength, functional activities with HEP and modalitites PRN - Subjective Subjective: Pt has LBP. It started 3 weeks ago and was doing injections with Dr Patino and was doing ok and now it is worse again. She has bulging discs L4-S1. That was confirmed on MRI and just had an x-ray last week. She reports that she has arthritis and bone spurs. Dr Patino said that she needed to do PT and then follow up with him. They arpproved a steroid injection which she will have to schedule with them. Pt has dull pain in butt cheek and sometimes into calf. Today pain is just in her back. He back is worse with all activity. Pt stands for almost 9 hours a day and then she sits down in her car toget home and it is then really tough to get up from sitting. Pt sleeps ok...sometimes it wakes her up achying and she has to get out of the bed. No N AND T. Once in awhile she will get some numbess in last 3 toes but it goes away quicly. 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 Naproxin has not helped. She just wants to be able to play with her graddaughter but after she leaves she is in a lot of pain. - Pain Back Pain Intensity (Out of 10): 5 R leg pain Pain Intensity (Out of 10): 2 L leg pain Pain Intensity (Out of 10): 2 - Objective + Slump test on the L for pain in her back and -Slump test on the R. Gait: Walks with decrease stance time on the L LE. Trunk AROM: Flexion 100%, Ext 50% with more extension on the R compared to the L. SB B 50% normal ROM, Rotation 75% normal ROM. LE MMT: hip flex B 4+/5, Knee ext 4/5 B, and Knee felx 4/5 B, hip abd L 4/5 and R 4+/5, B hip ext 4-/5. Prone lying: initially pt had pain right in center of her back. After lying there for 2 min pt reported that her back pain was not as bad. After another 2 min the pt reported that she had some center of back pain and then some R anterior thigh pain. Prone Press ups X 10 (abolished R thigh pain and then center of back pain was alitte relieved) Tried a second set of 10.....pt reported a weird pain in her R buttcheek.... - Goals Goal 1:: I HEP Goal Time Frame: 4-6 Weeks Goal 2:: Decrease back pain to 1/10 after a long work day Goal Time Frame: 4-6 Weeks Goal 3:: No pain with SLUMP test on the L Goal Time Frame: 4-6 Weeks Goal 4:: Walk with out an antalgic gait Goal Time Frame: 4-6 Weeks - Rehabilitation Potential Rehabilitation Potential: Good - Anticipated Interventions Patient/Client Instruction: Educate patient on: Condition, Plan of Care For the Purpose of:: To decrease pain, To decrease swelling/inflammation, To increase ROM, To improve nutrient delivery to tissue, To improve muscle performance and motor function, To improve ability to perform ADL's, To increase tolerance to activity/condition/position, To improve performance and independence with ADL's, To improve gait and locomotor functions, To improve health of tissue, To increase flexibility/ROM Therapeutic Exercise to Include: Strength training, Body mechanics, Postural training, Flexibilty training, Gait and locomotor training, Neuromotor development, Active ROM, Dynamic Lumbar Stabilization For the Purpose of:: To decrease pain, To decrease swelling/inflammation, To increase ROM, To improve nutrient delivery to tissue, To improve muscle performance and motor function, To increase tolerance to activity/condition/position, To improve gait and locomotor functions, To improve health of tissue, To decrease soft tissue restriction, To increase flexibility/ROM Functional Training to Include: Gait training For the Purpose of:: To improve gait and locomotor functions IF ES: Yes Cryotherapy (ice pack, ice massage): Yes Thermo therapy (hot pack): Yes Ultrasound (thermal/non thermal): Yes For the Purpose of:: To decrease pain, To decrease swelling/inflammation, To increase ROM, To improve nutrient delivery to tissue Thank you for the opportunity to evaluate your patient. For Medicare and Medicare HMO plans, please review the plan of care and approve it. It will need to be FAXED BACK to us at [phone] for Medicare purposes. Please let me know if there are questions or concerns regarding this plan of care. Physician Signature: Date: <Electronically signed by Lubna Gaston MPT> 09/25/17 1118 CC: Peter Patino MD; Ambrose Olivares DO Signed For Medicare only, by signing this I certify the plan of care. Physicians Signature Date LUMBAR SPINE 2 OR 3 Observed: 09/19/2017 Status: F Source: NGOZI VIEWS 9:25 AM [facility] REPOSITORY [facility] Imaging Services [address] [place] [address] Lumbar Spine 2 or 3 Views MR#: [id number] Acct: [id number] Name: LISBETH VALDEZ Rep #: [id number] : 1970 F 47 From: Alexander Armendariz MD PCP: Ambrose Olivares DO Status: REG CLI Study: Lumbar Spine 2 or 3 Views Date of Exam: 09/19/17 Exam# [id number] Ordering Dr: Peter Patino MD STUDY: X-RAY - LUMBAR SPINE REASON FOR EXAM: Female, 47 years old. Back pain. TECHNIQUE: 3 view(s) of the lumbar spine were obtained. COMPARISON: None FINDINGS: Normal lumbar lordosis. There is no substantial scoliosis. There is a normal alignment of the vertebrae. Normal vertebral bodies and endplates. Mild degree of disc space narrowing at the L4-L5 level. Marked degree of disc space narrowing at the L5-S1 level. The soft tissue structures are unremarkable. RAD/Lumbar Spine 2 or 3 Views IMPRESSION: Degenerative changes of the spine, as detailed above. Electronically Signed: Alexander Armendariz MD at 10:17 EST Tel [phone], Service support , CC: Peter Patino MD; Ambrose Olivares DO Client Business Manager: Signed ALLERGIES ALLERGIES DATE TYPE / CODE NAME / CODE REACTION SEVERITY SOURCE 07/12/2018 Drug lactose/F006 Food Allergy Unknown [facility] Allergy/4160 077108([place] 8690002(SNOMED M) Repository CT) 07/12/2018 Drug egg/[id number] Unknown Unknown [place] [facility] Allergy/4160 47(RXNO) [place] [address](SNOMED Repository CT) ENCOUNTERS ENCOUNTERS ADMIT/DISCHARGE ACCOUNT ADMITTING ENCOUNTER LOCATION SOURCE NUMBER CLASS 08/09/2018/ [id number] Amb[place] 0 [facility] ing:CLS Repository 08/08/2018 [id number] Ambulatory BMSBuilding:B [place] 9 [facility] Repository 08/08/2018/ [id number] Ambulatory BMSBuilding:B [place] 8 4 [facility] Repository 08/05/2018 [id number] Ambulatory BMSBuilding:B [place] 7 [place].[facility] Repository 08/05/2018 [id number] [place] 5 [facility] ing:CVS Repository 07/31/2018 [id number] Ambulatory [place] 7 [facility] ing:CVS Repository 07/22/2018 [id number] Amb[place] 6 [facility] ing:CVS Repository 07/12/2018/ [id number] Ambulatory BMSBuilding:B [place] 8 4 [facility] Repository 07/11/2018 [id number] Ambulatory BMSBuilding:B [place] 3 [facility] Repository 05/29/2018 [id number] Ambulatory [place] 6 [facility] ing:PSN Repository 05/29/2018 [id number] Ambulatory BMSBuilding:W [place] 4 [facility] Repository 05/22/2018 [id number] Ambulatory [place] 9 [facility] ing:LAB.FUTUR Repository E 10/30/2017/ [id number] Ambulatory [place] 8 2 [facility] ing:PT Repository 09/19/2017 [id number] [place] 0 [facility] ing:RAD Repository PAYERS PAYERS ENCOUNTER GUARANTOR PAYER SUBSCRIBER SOURCE 08/09/2018 AILMARTIE K Primary AILEENE K [place] [id number] Insurance:CARESOURCE SNELGROVEDOB: [facility] [id number] Number: Repository [id number]: 330 [id number] [phone] () Date:6275-74-66HV [address] [place] [address]JT: 08/09/2018 Secondary NOT GIVENUNK [place] Insurance:SELF PAY [facility] Number: Effective Repository Date:2018-08-06 08/08/2018 AILEENE K Primary AILEENE K [place] [id number] Insurance:[employer]OURCE SNELGROVEDOB: [facility] [id number], [place] Number: Repository [id number]: [phone] [id number] [phone] (HP) Date:4304-03-83RE [address] [place] [address]OL: 08/08/2018 Secondary NOT GIVENUNK [place] Insurance:SELF PAY [facility] Effective Repository Date:2018-08-08 08/08/2018 AILEENE K Primary AILEENE K [place] [id number] Insurance:[employer] SNELGROVEDOB: Community [place] JUST FOR [facility] [id number], [place] Number: Repository [id number]: 330 [id number] [phone] (HP) Date:3900-09-45LC [address] [address]QJ: 08/08/2018 Secondary NOT GIVENUNK [place] Insurance:SELF PAY [facility] Number: Effective Repository Date:2018-08-08 08/05/2018 AILEENE K Primary AILEENE K [place] [id number] Insurance:[employer]OURCE SNELGROVEDOB: Community [place] JUST FOR [facility] [id number] Number: Repository [address]Fag: 330 [id number] [phone] () Date:6765-78-11NB [address] [address]JH: 08/05/2018 Secondary NOT GIVENUNK [place] Insurance:SELF PAY [facility] Number: Effective Repository Date:2018-08-05 08/05/2018 AILEENE K Primary AILEENE K [place] [id number] Insurance:[employer]OURCE SNELGROVEDOB: Community RAFITA JUST [facility] [id number], [place] Number: Repository [id number]: 330 [id number] [phone] (HP) Date:9686-94-01WR [address] [address]OF: 08/05/2018 Secondary NOT GIVENUNK [place] Insurance:SELF PAY [facility] Number: Effective Repository Date:2018-07-22 07/31/2018 AILEENE K Primary AILEENE K [place] [id number] Insurance:CAR[employer]OURCE SNELGROVEDOB: Community RAF[place] JUST [facility] 1536-06-[place] Number: Repository [id number]: 330 [id number] [phone] () Date:5230-20-32LY [address] [address]GK: 07/31/2018 Secondary NOT GIVENUNK [place] Insurance:SELF PAY [facility] Number: Effective Repository Date:2018-07-02 07/22/2018 AILEENE K Primary AILEENE K [place] [id number] Insurance:CARESOURCE SNELGROVEDOB: Community RAFITA [facility] [id number] Number: Repository [address]Jkt: 330 [id number] [phone] () Date:3500-34-87XH [address] [address]UN: 07/22/2018 Secondary NOT GIVENUNK [place] Insurance:SELF PAY [facility] Number: Effective Repository Date:2018-07-12 07/12/2018 AILEENE K Primary AILEENE K [place] [id number] Insurance:[employer]OURCE SNELGROVEDOB: [facility] [id number], [place] Number: Repository [address]Swd: 330 [id number] [phone] () Date:9394-88-31YH [address] [address]NO: 07/12/2018 Secondary NOT GIVENUNK [place] Insurance:SELF PAY [facility] Number: Effective Repository Date:2018-07-08 07/11/2018 AILEENE K Primary AILEENE K [place] [id number] Insurance:CARESOURCE SNELGROVEDOB: Community RAFITA [facility] [id number], [place] Number: Repository [address]Rgi: 330 [id number] [phone] (HP) Date:0174-71-09XE [address] [address]GL: 07/11/2018 Secondary NOT GIVENUNK [place] Insurance:SELF PAY [facility] Number: Effective Repository Date:2018-07-11 05/29/2018 AILEENE K Primary AILEENE K [place] [id number] Insurance:[employer]OURCE SNELGROVEDOB: Community [place] JUST FOR [facility] [id number], [place] Number: Repository [address]Zld: 330 [id number] [phone] (HP) Date:2069-19-04VI [address] [address]SN: 05/29/2018 Secondary NOT GIVENUNK [place] Insurance:SELF PAY [facility] Number: Effective Repository Date:2018-05-24 05/29/2018 AILEENE K Primary AILEENE K [place] [id number] Insurance:[employer]OURCE SNELGROVEDOB: Community [place] JUST [facility] [id number], [place] Number: Repository [address]Uwd: 330 [id number] [phone] () Date:1783-35-03PH [address] [address]SD: 05/29/2018 Secondary NOT GIVENUNK [place] Insurance:SELF PAY [facility] Number: Effective Repository Date:2018-05-29 05/22/2018 Aileene Primary Aileene [place] [id number] Insurance:CARESOURCE SnelgroveDOB: Community [place] JUST [facility] [id number], [place] Number: Repository [id number]: 330 [id number] [phone] (HP) Date:8160-92-66XU [address] [address]IF: 05/22/2018 Secondary NOT GIVENUNK [place] Insurance:SELF PAY [facility] Number: Effective Repository Date:2018-05-21 10/30/2017 Aileene Primary Aileene [place] [id number] Insurance:[employer]OURCE SnelgroveDOB: Community Rafita [facility] [id number], [place] Number: Repository [address]Dxx: 330 [id number] [phone] () Date:0157-96-06MQ [address] [address]RY: 10/30/2017 Secondary NOT GIVENUNK [place] Insurance:SELF PAY [facility] Number: Effective Repository Date:2017-09-12 09/19/2017 Aileene Primary Aileene [place] [id number] Insurance:CARESOURCE SnmatthewgroveDOB: [facility] 8308-17-65YHS[place], [place] Number: Repository [address]Dzb: 330 [id number] [phone] () Date:9158-82-74JA [address] [address]PR: 09/19/2017 Secondary NOT GIVENUNK [place] Insurance:SELF PAY [facility] Number: Effective Repository Date:2017-09-19
== END ==
PROVIDERS: Family Provider Family Medicine; PCP Family Medicine; Referring Provider Internal Medicine Cardiovascular Disease; Visit Provider Internal Medicine Cardiovascular Disease
DX: R00.2 Palpitations (principal); R07.9 Chest pain, unspecified; I47.1 Supraventricular tachycardia
CPT/HCPCS: 93017; 93306

== ENCOUNTER 2018-08-09 08:52 | Day surgery (SDC) | payer OTHER, SELFPAY ==
[2018-07-12 12:04] VITALS: BMI 34.2
--- NOTE | 2018-08-08 07:27 | RAD_ITS ---
STUDY: X-RAY CHEST REASON FOR EXAM: Female, 47 years old. Abnormal stress test. Chest pain. TECHNIQUE: PA and lateral views of the chest. COMPARISON: None. FINDINGS: The lungs are clear and expanded. Scattered calcified granulomas There is no demonstrated pleural abnormality. Normal size heart. Normal mediastinum and blanca. Normal visualized pulmonary arteries. Normal visualized aortic arch and descending thoracic aorta. Normal visualized thoracic spine. Normal visualized ribs, clavicles, and shoulders. There is no demonstrated abnormality of the visualized soft tissue structures of the upper abdomen. RAD/Chest PA and Lateral IMPRESSION: Normal x-ray examination of the chest. Electronically Signed: Alexander Armendariz MD at 10:42 EST Tel [phone], Service support ,
[2018-08-08 08:19] LABS: Absolute Neutrophil Count 4.5 X10^3/uL (2.0-7.7); Basophil# 0.05 X10^3/uL; Basophil% 0.6 % (0-1); Eosinophil# 0.13 X10^3/uL; Eosinophils% 1.6 % (0-5); Hemoglobin 13.3 g/dl (12.0-15.0); Lymphocyte % 36.2 % (19-41); Mean Corp Hgb Conc 33.3 g/gl (32-36); Mean Corpuscular Hgb 30.9 pg (27.0-32.0); Mean Corpuscular Volume 92.8 fL (81-99); Mean Platelet Vol. 9.3 fl (6.2-12.0); Monocyte# 0.62 X10^3/uL; Monocyte% 7.5 % (0-10); Neutrophil # 4.48 X10^3/uL (2.7-7.7); Platelet Count 411 K/mm3 (150-450); RBC Distribution Width CV 12.8 % (11.6-14.6); RBC Distribution Width SD 41.9 fl (35.1-43.9); Red Blood Count 4.31 M/mm3 (4.2-5.4); White Blood Count 8.3 K/mm3 (4.4-11.0)
[2018-08-08 08:20] LABS: POSITIVE COUNT NO; POSITIVE DIFFERENTIAL NO; POSITIVE MORPHOLOGY NO
[2018-08-08 08:44] LABS: Anion Gap 9 (5-15); BUN 25 mg/dL (7-18); BUN/Creat Ratio 35.1 RATIO (10-20); Calcium,Total 8.9 mg/dL (8.5-10.1); Chloride 107 mmol/L (98-107); Creatinine, Serum 0.71 mg/dL (0.55-1.02); EST Glomerular Filtration Rate 93 mL/min (>60); Est Glom Filt Rate - Afr Amer 112 mL/min (>60); Glucose 85 mg/dL (74-106); Potassium 3.9 mmol/L (3.5-5.1); Sodium Level 144 mmol/L (136-145)
[2018-08-08 08:45] LABS: Prothrombin Time (Protime)PT. 12.7 SECONDS (11.7-14.9)
[2018-08-08 08:55] LABS: Pregnancy, Serum, hCG Quali. NEGATIVE Negative (0-9 Nonpreg)
--- NOTE | 2018-08-09 10:00 | CL.D_ITS ---
Patient Name: LISBETH VALDEZ Study Date: 08/09/2018 Performing: Nicolás Salazar MD Ht: 62.99 inches 160 cm : 1970 Wt: 194.01 lbs 88 kg Age: 47 Gender: female BSA: 1.91 PROCEDURE(S) PERFORMED [id number] CLINICAL PROFILE AND INDICATIONS Indications: Suspected CAD Heart Failure: None Stress/Imaging Standard Exercise Stress Test: Yes Result: Positive Low Risk CAD Presentations: No Sxs, no angina. CONCLUSIONS Normal coronary arteries Normal LV size, wall motion,and systolic function RECOMMENDATIONS Medical therapy DESCRIPTION OF PROCEDURE The patient arrived to the procedure lab. The risks and benefits of the procedure as well as a full d escription of our services here and current unavailability of surgical backup were fully explained to the patient and/or their significant other prior to the catheterization. The Timeout was completed, verifying the correct patient and procedure. The patient's procedural site was prepped and draped in the usual fashion. Local anesthetic was given subcutaneously to right groin region with Lidocaine 2%. Using a modified Seldinger technique, arterial access was obtained via the right femoral artery, a 5 Fr sheath was inserted. Left Coronary Artery selective angiography was performed in multiple views u sing a 5 Fr. JL4 catheter. Right Coronary Artery selective angiography was then performed in multiple views using a 5 Fr. 3DRC (Bon) catheter. Left Ventriculography was performed in SCOTT projection using a 5 Fr. Pigtail catheter. LV to AO pullback pressures were then recorded.Contrast was injected through the sheath and the Right Iliac and Femoral artery were assessed for possible gely sure device.The arterial sheath was pulled and manual compression applied until hemostasis is achieve d. CORONARY ANGIOGRAPHY DOMINANCE: Right Dominant LEFT HEART ASSESSMENT Left Ventricular Ejection Fraction: by LV Gram 60 % Normal LV wall motion Normal Left Ventricular systolic function Normal Left Ventricular systolic function LEFT MAIN: Angiographically normal LEFT ANTERIOR DECENDING ARTERY: Angiographically normal CIRCUMFLEX ARTERY: Angiographically normal RIGHT CORONARY ARTERY: Angiographically normal COMPLICATIONS No Complications PROCEDURE MEDICATIONS Versed 1 mg IV Versed 1 mg IV Oxygen: 2 L/min via nasal cannula SUMMARY OF HEMODYNAMIC DATA Time AIR REST ECG 09:11:08 AO 128/82 (102) SA 09:40:20 LV 144/4, 25 09:46:07 LV 140/2, 19 09:46:13 LV 130/7, 24 09:47:08 LVp 132/3, 24 09:47:11 AOp 134/78 (101) 09:47:16 Signed By Nicolás Salazar MD On 08/09/2018 10:00:03 Nicolás Salazar MD
== END 2018-08-09 14:20 | disposition home or self-care (01) ==
LOC: CLSP 08:52
PROVIDERS: Family Provider Family Medicine; PCP Family Medicine; Referring Provider Internal Medicine Cardiovascular Disease; Visit Provider Internal Medicine Cardiovascular Disease
DX: I47.1 Supraventricular tachycardia (principal); I34.1 Nonrheumatic mitral (valve) prolapse; I73.9 Peripheral vascular disease, unspecified; I47.2 Ventricular tachycardia; F32.9 Major depressive disorder, single episode, unspecified; F41.9 Anxiety disorder, unspecified; M47.816 Spondylosis without myelopathy or radiculopathy, lumbar region; E66.9 Obesity, unspecified; Z68.34 Body mass index [BMI] 34.0-34.9, adult; M19.90 Unspecified osteoarthritis, unspecified site; Z79.82 Long term (current) use of aspirin; Z79.899 Other long term (current) drug therapy; Z87.891 Personal history of nicotine dependence
CPT/HCPCS: 36415; 71046; 80048; 84703; 85025; 85610; 93458; 99152; 99153; C1760; J7040; Q9967; C1769

== ENCOUNTER → 2018-11-26 07:46 | Outpatient (CLI) | payer OTHER, SELFPAY ==
[2018-11-19 14:26] VITALS: BMI 37.2
--- NOTE | 2018-11-26 15:43 | PFTCOMP ---
COMPLETE PULMONARY FUNCTION TEST INTERPRETATION Brief HPI: Patient is a 48 year old female, currently under the care of Kristan Lewis, who presents to [facility] for complete pulmonary function tests secondary to diagnosis of dyspnea. Respiratory therapist reports good effort and reproducible results. Interpretation: Forced expiration spirometry shows no large airways obstructive ventilatory defect with an FEV1 of 86% predicted. There is no significant bronchodilator response by strict ATS criteria. Spirograms are of good quality and plateau normally. The respiratory flow volume loop shows a normal pattern. Lung volumes by body plethysmography show a normal total lung capacity at 4.39 L, 92% predicted. All other lung volumes are within normal limits. Diffusion capacity by carbon monoxide is normal at 70% predicted. The airway resistance is normal. No previous pulmonary function tests were available for review. Impression: These pulmonary function tests are grossly within normal limits. Diffusing capacity is at the lower limit of normal, so early pulmonary vascular disease cannot be excluded.
== END ==
PROVIDERS: Family Provider Family Medicine; PCP Family Medicine; Referring Provider Physician Assistant Medical; Visit Provider Physician Assistant Medical
DX: R00.2 Palpitations (principal); R06.09 Other forms of dyspnea; R53.83 Other fatigue
CPT/HCPCS: 94060; 94726; 94729

== ENCOUNTER → 2018-12-09 20:00 | Outpatient (CLI) | payer OTHER, SELFPAY | PROVIDERS: Family Provider Family Medicine; PCP Family Medicine; Referring Provider Physician Assistant Medical; Visit Provider Physician Assistant Medical | DX: G47.10 Hypersomnia, unspecified (principal); E66.9 Obesity, unspecified | CPT/HCPCS: 95810 ==

== ENCOUNTER → 2019-01-08 | Outpatient (CLI) | payer OTHER, SELFPAY ==
[2018-11-19 14:26] VITALS: BMI 37.2
[2018-12-24 07:50] VITALS: BMI 37.2
== END | disposition home or self-care (01) ==
PROVIDERS: Family Provider Family Medicine; PCP Family Medicine; Referring Provider Family Medicine; Visit Provider Family Medicine
DX: G47.33 Obstructive sleep apnea (adult) (pediatric) (principal)
CPT/HCPCS: 95811

== ENCOUNTER → 2019-01-22 | Outpatient (CLI) | payer OTHER, SELFPAY ==
[2018-12-24 07:50] VITALS: BMI 37.2
== END | disposition home or self-care (01) ==
LOC: LABSPEC 06:29
PROVIDERS: Family Provider Family Medicine; PCP Family Medicine; Referring Provider Family Medicine; Visit Provider Family Medicine
DX: K52.9 Noninfective gastroenteritis and colitis, unspecified (principal)
CPT/HCPCS: 82274; 83630; 87493; 87506

== ENCOUNTER 2019-02-24 05:48 | Day surgery (SDC) | payer OTHER, SELFPAY ==
[2019-01-28 09:23] VITALS: BMI 37.2
--- NOTE | 2019-01-28 12:36 | HP_ITS ---
Intake Vital Signs 01/28/19 Body Mass Index (BMI) 37.2 01/28/19 Height 5 ft 3 in 01/28/19 Weight: 215 lb 01/28/19 Body Mass Index (BMI) 38.0 01/28/19 Blood Pressure 110/74 01/28/19 Blood Pressure Location Rt brachial 01/28/19 Blood Pressure Position Sitting 01/28/19 Respiratory Rate 18 01/28/19 Pulse Rate 67 01/28/19 Pulse Source Monitor 01/28/19 Temperature 97.6 F L 01/28/19 Temperature Source Oral 01/28/19 Pulse Ox 98 01/28/19 Oxygen Delivery Method room air Intake Visit Reasons: C-Scope Consult Chief Complaint: Daytime hypersomnia Medical Imaging Technologist Required: No Is patient in pain?: No Allergies egg Allergy (Verified 01/28/19 09:22) Unknown lactose Allergy (Verified 01/28/19 09:22) Food Allergy Medications Montelukast [Singulair] 10 mg PO DAILY 05/31/16 [History Confirmed 01/28/19] Venlafaxine HCl [Effexor] 75 mg PO DAILY 05/31/16 [History Confirmed 01/28/19] meloxicam 15 mg tablet 15 mg PO DAILY 07/12/18 [History Confirmed 01/28/19] metoprolol succinate ER 25 mg tablet,extended release 24 hr 25 mg PO DAILY #90 tab 11/20/18 [Rx Confirmed 01/28/19] [facility] Medical History Claudication (Chronic) Nonrheumatic mitral valve prolapse (Chronic) Paroxysmal supraventricular tachycardia (Chronic) Nonsustained ventricular tachycardia (Chronic) Nicotine abuse (Chronic) Arthritis (Acute) Diarrhea (Acute) History of back problems (Acute) Sleep apnea (Acute) Anxiety and depression (Chronic) Lumbar spondylosis (Chronic) Obesity (Chronic) Osteoarthritis (Chronic) Surgical History History of laparoscopic cholecystectomy (Acute) History of left heart catheterization (Acute) History of tubal ligation (Acute) H/O arthroscopy of left knee (Resolved) History of (Resolved) History of hysterectomy (Resolved) History of rhinoplasty (Resolved) Family History Father Hypertension Cancer leukemia Mother CAD (coronary artery disease) Heart disease Brain aneurysm Social History Smoking Status: Former smoker quit date: 07/01/18 Tobacco: How many years used: 30 how long ago did patient quit smokin, 1ppd second hand exposure: Yes alcohol intake: current substance use type: does not use caffeine: Yes Type: coffee Number of servings: 2 HPI HPI HPI: LISBETH VALDEZ, is a 48 F who presents to the office today for HPI HPI Surgical H&P: Yes HPI: LISBETH VALDEZ, is a 48 F who presents to the office today for chronic diarrhea. Patient states that this is been going on for about 6 months but over the last 2 months she has been noticing significant loose stools at least 3 a day. She occasionally feels nauseated but she has had no vomiting. She has not noticed any bright red rectal bleeding. She has had no anal pain with bowel movements. She has had a C. difficile which was negative occult blood was negative and her enteric pathogens was also negative. She cannot recall any obvious triggers really does not matter what she eats at this point she is going to have loose stools. This is significantly worse than it was when she had her gallbladder removed many years ago. At that time she was treated with Questran and this improved on its own. ROS General General: Yes weight change and fatigue; no appetite, colon cancer, breast cancer or weakness HEENT HEENT: No difficulty swallowing, eye injury, eye surgery, swollen glands or hoarseness Endo Endocrine: No thyroid disease, diabetes mellitus, thyroid cancer, Hair loss, heat intolerance or cold intolerance Skin Skin: No rash or changing moles Breast Breast: No left breast lump, right breast lump, nipple discharge, breast pain, abnormal mammogram, abnormal US or breast enlargement Musc Musculoskeletal: Yes back problems and arthritis; no rheumatoid arthritis, gout or joint pain Cardio Cardiovascular: No murmur, pacemaker, heart disease, atrial fibrillation, high blood pressure, heart attack, heart stent, palpitations, shortness of breat with exertion or chest pain Psych Psychiatric: No depression, anxiety or hearing voices Resp Respiratory: No shortness of breath, Yes sleep apnea, No cough, No COPD, No asthma, No emphysema, No wheezing Gastro Gastrointestinal: Yes abdominal pain, Yes nausea or vomiting, Yes diarrhea, No constipation, No blood in stool, No acid reflux, No hemorrhoids, No ulcers, No gallbladder problem, No black,tarry stools Nestor Hematologic: No blood thinners, No blood disorders, No bleeding, No anemia, No blood clots Neuro Neurologic: No system reviewed and no additional complaints, except as docu, No as per HPI, No abnormal walking, No abnormal hearing, No abnormal movements, No abnormal speech, No behavioral changes, No burning sensations, No confusion, No seizure-like activity, No unsteadiness, No dizziness, No localized weakness, No frequent falls, No headache(s), No lack of coordination, No loss of vision, No memory loss, No numbness, No other visual disturbances, No radiating pain, No restless legs, No sensory deficit, No fainting, No tingling, No tremor(s), No weakness, No other Exam Const General: no acute distress, well developed, well hydrated Orientation: oriented to person, oriented to place, oriented to time [facility] Head: normocephalic, atraumatic Ears: external ears normal Mouth: moist mucous membranes Eyes Sclera: sclerae normal Pupils: normal by confrontation Neck Neck: no lymphadenopathy noted Neck mass: No Thyroid: thyroid normal, symmetrical Chest Chest palpation & inspection: normal inspection of the chest Breast Palpation: No nipple discharge Resp Effort & Inspection: normal respiratory effort Auscultation: clear to auscultation bilaterally Percussion: percussion normal Cardio Rate: regular rate Rhythm: regular rhythm Heart Sounds: no murmurs GI Palpation: soft, no hepatosplenomegaly, no masses, nontender Rectal Exam: other Other: Rectal exam deferred. Extrem General: normal to inspection, no clubbing, cyanosis or edema Assessment & Plan Problems 1. Diarrhea, unspecified type R19.7 Plan I have discussed the above with the patient. I have offered the patient colonoscopy for evaluation. I have explained the risks/benefits of the procedure and described the procedure. I have discussed the risks with the patient, including but not limited to: infection, bleeding, perforation of the GI tract requiring emergency surgery, inability to complete the procedure, injury to any internal organs, complications of anesthesia, etc. - the patient understands and agrees to proceed. I have answered all the patient's questions to the patient's satisfaction and the patient has no further questions. The patient has been given instructions for the colon cleansing preparation. We will be doing random colon biopsies. Orders Orders: Colonoscopy Today Coding Level of Care Code Off vis,new,level 3 Diagnoses Diarrhea, unspecified type R19.7 ??Diarrhea type: unspecified type 01/28/19 1237 <Electronically signed by Rosalio augustin MD> Date _ Rosalio Leonard MD I have re-examined the patient. There are no clinical changes since date of exam.
[2019-02-24 06:06] VITALS: BP 119/71; PULSE 85; RESP 16; TEMP 36.4; O2SAT 96; BMI 37.6
--- NOTE | 2019-02-24 07:00 | COLBX_PTH ---
PATIENT: LISBETH VALDEZ LOC: EN U#:[id number] AGE/SX: 48/F ROOM: RE02/24/[address]: Dr. Rosalio Leonard MD : 1970 BED: DIS: 02/24/2019 SPEC #: [id number] RECD: 02/24/19 11:17 STATUS: GERSON REAlex #: [id number] JAMAAL: 02/24/19 07:[address]: Rosalio Leonard DEPT: SURGICAL PATHOLOGY RECD BY: Matias Griffin ENTERED: 02/24/19 11:35 SP TYPE: COLON BX OTHR DR: Dr. Ambrose Olivares, Tissues: COLON BIOPSY Procedures: Surgery Specimen Level IV HEADER OPERATION: Colonoscopy (MAC) PRE-OP DIAGNOSIS: Diarrhea TISSUE SUBMITTED: Random colonic biopsy MICROSCOPIC DIAGNOSIS Random colonic biopsies: Fragments of colonic mucosa with mild chronic nonspecific inflammation in the lamina propria. Negative for microscopic colitis or IBD. FA:cherie 02/25/19 COMMENT Case has been reviewed in consultation with Dr. Ortiz who concurs with the above diagnosis. IDC:CE MICROSCOPIC DESCRIPTION Slides are reviewed. GROSS DESCRIPTION Received in fixative is one container labeled with the patient's name and designated random colonic biopsy. The specimen consists of multiple pinkish-adams biopsy fragments measuring up to 2 to 3 mm in greatest dimension. The specimen is totally submitted in one cassette. / FA:rg 02/24/19 TC:4 CPT: 00885
[2019-02-24 07:20] VITALS: BP 114/51; BP 119/71; PULSE 85; RESP 16; TEMP 36.3; O2SAT 95
[2019-02-24 07:25] VITALS: BP 113/59; BP 119/71; PULSE 80; RESP 16; O2SAT 96
--- NOTE | 2019-02-24 07:27 | OP.ENDO_ITS ---
02/24/2019 Ambrose Olivares [address] [place] [address] Re : Colonoscopy procedure for Madhav Cochran Dear Dr. Olivares This procedure was performed on Sunday, February 24, 2019. My impressions and recommendations are as follows: Impressions : - Multiple random biopsies were obtained in the entire colon. Recommendations : - Discharge patient to home. - Resume previous diet. - Continue present medications. - Await pathology results. - Repeat colonoscopy in 10 years for screening purposes. - Return to my office in 1 week. My findings are described in the full procedure note, which is enclosed. If I can be of further assistance, please feel free to contact me at Doctor phone number(s): , Fax: [phone], Work: . Sincerely, MD Rosalio Muller MD 02/24/2019 7:26:52 AM This report has been signed electronically.
[2019-02-24 07:30] VITALS: BP 113/72; BP 119/71; PULSE 81; RESP 16; O2SAT 94
[2019-02-24 07:35] VITALS: BP 106/68; BP 119/71; PULSE 81; RESP 16; TEMP 36.4; O2SAT 95
[2019-02-24 07:44] VITALS: BP 119/71
== END 2019-02-24 08:04 | disposition home or self-care (01) ==
LOC: EN 05:50 → AC 05:51
PROVIDERS: Family Provider Family Medicine; PCP Family Medicine; Referring Provider Family Medicine; Visit Provider Surgery
PROC: 0DJD8ZZ Inspection of Lower Intestinal Tract, Via Natural or Artificial Opening Endoscopic (ICD-10-PCS; CPT 45378; principal; 2019-02-24 06:55)
DX: K52.9 Noninfective gastroenteritis and colitis, unspecified (principal); K64.8 Other hemorrhoids; I73.9 Peripheral vascular disease, unspecified; I34.1 Nonrheumatic mitral (valve) prolapse; I47.1 Supraventricular tachycardia; I47.2 Ventricular tachycardia; M19.90 Unspecified osteoarthritis, unspecified site; G47.30 Sleep apnea, unspecified; F41.9 Anxiety disorder, unspecified; F32.9 Major depressive disorder, single episode, unspecified; M47.816 Spondylosis without myelopathy or radiculopathy, lumbar region; E66.9 Obesity, unspecified; Z68.38 Body mass index [BMI] 38.0-38.9, adult; Z78.0 Asymptomatic menopausal state; Z90.49 Acquired absence of other specified parts of digestive tract; Z79.899 Other long term (current) drug therapy; Z87.891 Personal history of nicotine dependence
CPT/HCPCS: 45380; 88305; J7120; J1610; J2405

== ENCOUNTER 2019-02-25 13:22 | Emergency (ER) | payer OTHER, SELFPAY ==
[2019-02-24 06:06] VITALS: BMI 37.6
[2019-02-25 13:22] VITALS: BP 125/75; PULSE 93; RESP 16; TEMP 36.6; O2SAT 96; BMI 37.5
[2019-02-25 15:15] LABS: Anion Gap 3 (5-15); BUN 11 mg/dL (7-18); BUN/Creat Ratio 16.5 RATIO (10-20); Calcium,Total 9.1 mg/dL (8.5-10.1); Chloride 106 mmol/L (98-107); Creatinine, Serum 0.67 mg/dL (0.55-1.02); EST Glomerular Filtration Rate 100 mL/min (>60); Est Glom Filt Rate - Afr Amer 121 mL/min (>60); Estimated Creatinine Clearance 84.02 ml/min; Glucose 95 mg/dL (74-106); Potassium 3.6 mmol/L (3.5-5.1); Sodium Level 140 mmol/L (136-145)
--- NOTE | 2019-02-25 15:15 | CT_ITS ---
HISTORY:COLONOSCOPY YESTERDAY, PAIN TODAY. HX OF APPY, DENI, MIO COLONOSCOPY YESTERDAY, PAIN TODAY. HX OF APPY, DENI, MIO TECHNIQUE: Helically acquired images were obtained of the abdomen and pelvis following IV contrast. A radiation dose optimization technique was used for this scan. IV Contrast dosage and agent:100ML Isovue 300 Oral contrast: Yes COMPARISON: None FINDINGS: # of images incl. paperwork: 461 LOWER CHEST: Atelectasis in the lung bases. No cardiomegaly LIVER: Hepatomegaly. No focal masses. Steatosis GALLBLADDER AND BILIARY TREE: Cholecystectomy no intrahepatic ductal dilatation. The common bile duct measures 9 mm which is within normal limits for postcholecystectomy patient KIDNEYS AND URETERS: No hydronephrosis or nephrolithiasis. No stones are seen within the ureters ADRENAL GLANDS: Non-enlarged. SPLEEN: Normal size without focal cystic or solid mass. PANCREAS: No focal cystic or solid mass. BOWEL: ; Is unremarkable The small bowel is unremarkable to the level of the terminal ileum. There is questionable wall thickening of the terminal ileum however it is poorly distended There is no mechanical obstruction Appendectomy LYMPH NODES: No enlarged mesenteric or retroperitoneal lymph nodes. PERITONEUM: No ascites or free air. No other fluid collection. VESSELS: Aorta is non-dilated. URINARY BLADDER: Incompletely distended, otherwise grossly unremarkable. REPRODUCTIVE ORGANS: Hysterectomy ABDOMINAL WALL: Fat-containing umbilical hernia BONES: No acute osseous abnormality. There is decreased disc space at the level of L5-S1 with vacuum disc. Cystic changes at the right head neck junction as well as the left head neck junction CT/Abdomen/Pelvis WITH Contrast IMPRESSION: No acute pathology Hepatomegaly and steatosis Cholecystectomy Appendectomy Hysterectomy Fat-containing umbilical hernia Individualized dose optimization techniques were used for this CT. at 1723 Reported and signed by: Ivonne Graves DO Electronically Signed: Ivonne Graves DO at 17:22 EDT Tel , Service support ,
[2019-02-25 15:16] VITALS: BP 129/78; PULSE 87; RESP 18; O2SAT 98
--- NOTE | 2019-02-25 15:16 | ED.DCSUM_ITS ---
- ER Visit Summary Date of Service: 02/25/19 Chief Complaint: Abdominal pain History of Present Illness: The patient is a 48 F presenting with abdominal pain. Patient states this started yesterday. She had a colonoscopy performed per Dr. Leonard yesterday morning. She states this was performed for chronic diarrhea. She states that he took biopsies but did not remove any polyps and did not have any other concerns. She states that before leaving the hospital she started having pain in her right lower quadrant. She states this persisted and worsened throughout the day. She denies nausea or vomiting. Denies diarrhea or constipation. Denies fever. She tried Advil yesterday with no relief. She has history of previous appendectomy, cholecystectomy, hysterectomy. Physical Examination: Vitals are stable. Patient is afebrile. Alert no acute distress. HEENT exam is unremarkable. Neck is supple. Lungs are clear and equal bilaterally. Heart is regular rate and rhythm. Abdomen is soft right lower quadrant tenderness with voluntary guarding, no rebound Extremities are unremarkable. Skin is warm and dry. Remainder of exam is unremarkable. Emergency Department Course and Treatment: Patient given morphine, Zofran, IV fluids. CBC, chemistries unremarkable. Lipase is normal. Urinalysis unremarkable. She continues to have pain and was given Dilaudid IV. CT abdomen pelvis with p.o. and IV contrast was obtained and shows no acute pathology. Hepatomegaly and steatosis. Cholecystectomy. Appendectomy. Hysterectomy. Discussed with Dr. Leonard. He also reviewed the CT scan himself and agrees with radiology reading. Patient's pain is somewhat positional and may be musculoskeletal in nature. She was given prescriptions for Flexeril and Naprosyn. She is advised to return to the ED if she has worsening symptoms. Advised to follow-up with primary care physician. Disposition: Discharge home Impression: Abdominal pain This note was generated with Copyright Agent dictation software. It may contain incorrect words, spelling, and punctuation that were not noted in review of the chart prior to signing ED Disposition - Plan for ED Patient: Instructions: ABDOMINAL PAIN, Unknown Cause, (Female) Prescriptions: cycloBENZAPRine HCl [Flexeril] 10 mg PO TID PRN #20 tab PRN Reason: Muscle Spasm Prescription Printed Naproxen [Naprosyn] 500 mg PO BID PRN #20 tab Prescription Printed Referrals: Rosalio Leonard MD [STAFF PHYSICIAN] - Ambrose Olivares DO [Primary Care Provider] -
[2019-02-25 15:20] LABS: Absolute Neutrophil Count 4.2 X10^3/uL (2.0-7.7); Basophil# 0.03 X10^3/uL; Basophil% 0.4 % (0-1); Eosinophil# 0.08 X10^3/uL; Hematocrit 42.2 % (37-47); Hemoglobin 14.3 g/dl (12.0-15.0); Lymphocyte % 37.6 % (19-41); Mean Corp Hgb Conc 33.9 g/gl (32-36); Mean Corpuscular Volume 88.7 fL (81-99); Mean Platelet Vol. 8.9 fl (6.2-12.0); Monocyte# 0.51 X10^3/uL; Monocyte% 6.6 % (0-10); Neutrophil # 4.19 X10^3/uL (2.7-7.7); Neutrophil % 54.3 % (47-70); Platelet Count 377 K/mm3 (150-450); RBC Distribution Width CV 12.9 % (11.6-14.6); Red Blood Count 4.76 M/mm3 (4.2-5.4); White Blood Count 7.7 K/mm3 (4.4-11.0)
[2019-02-25 15:23] LABS: POSITIVE COUNT NO; POSITIVE DIFFERENTIAL NO; POSITIVE MORPHOLOGY NO
[2019-02-25] MEDS: Ondansetron 4 MG/2 ML Vial IV ×2 (15:28→18:26)
[2019-02-25] MEDS: Morphine 4 MG/ML Syringe IV (15:29)
[2019-02-25 15:31] LABS: Lipase 72 U/L (73-393)
[2019-02-25 16:19] LABS: Bacteria 0 SEEN /hpf (None Seen); Mucous, Urine 0 SEEN /hpf (<or=2+); Red Blood Cells-Urine 0 SEEN /hpf (0-5); White Blood Cells 0 SEEN /hpf (0-5)
[2019-02-25 16:23] LABS: Color, Urine Yellow (Yellow); Glucose, Dipstick Normal (Normal); Ketone-Dipstick 5 mg/dl (Negative); Leukocyte Esterase-Dipstick Negative /ul (Negative); Nitrite-Dipstick Negative (Negative); Occult Blood-Urine Negative /ul (Negative); Protein-Dipstick Negative (Negative); Urine Bilirubin Dipstick Negative (Negative); Urine Clarity Clear (Clear); Urine Urobilinogen Normal (Normal); Urine pH 6.5 (5.0 - 8.0)
[2019-02-25 16:37] LABS: Squamous Epithelial Cells - UA 0-5 SEEN /hpf (5-10)
[2019-02-25] MEDS: HYDROmorphone 1 MG/ML Syringe IV (16:48)
[2019-02-25 17:25] VITALS: BP 136/89; PULSE 79; RESP 18; O2SAT 97
--- NOTE | 2019-02-25 17:47 | ED.DEP ---
ED Disposition - Plan for ED Patient: Instructions: ABDOMINAL PAIN, Unknown Cause, (Female) Prescriptions: cycloBENZAPRine HCl [Flexeril] 10 mg PO TID PRN #20 tablet PRN Reason: Muscle Spasm Naproxen [Naprosyn] 500 mg PO BID PRN #20 tablet Referrals: Ambrose Olivares DO [Primary Care Provider] - Rosalio Leonard MD [STAFF PHYSICIAN] -
== END 2019-02-25 18:30 | disposition home or self-care (01) ==
LOC: ED 15:28
PROVIDERS: Emergency Provider Emergency Medicine; Family Provider Family Medicine; PCP Family Medicine
DX: R10.31 Right lower quadrant pain (principal); K76.0 Fatty (change of) liver, not elsewhere classified; K42.9 Umbilical hernia without obstruction or gangrene; Z90.49 Acquired absence of other specified parts of digestive tract
CPT/HCPCS: 74177; 80048; 81001; 83690; 85025; 96361; 96374; 96375; 96376; 99282; J7040; Q9967; A4216; J2405

== ENCOUNTER → 2019-03-25 | Outpatient (CLI) | payer OTHER, SELFPAY ==
[2019-02-25 13:22] VITALS: BMI 37.5
[2019-03-25 10:12] VITALS: BMI 38.2
== END | disposition home or self-care (01) ==
LOC: SL 10:19
PROVIDERS: Family Provider Family Medicine; PCP Family Medicine; Referring Provider Nurse Practitioner Acute Care; Visit Provider Nurse Practitioner Acute Care
DX: G47.33 Obstructive sleep apnea (adult) (pediatric) (principal)

== ENCOUNTER → 2019-06-17 11:37 | Outpatient (CLI) | payer OTHER, SELFPAY ==
[2018-11-19 14:26] VITALS: BMI 37.2
[2019-03-25 10:58] VITALS: BMI 38.2
[2019-06-17 15:35] LABS: Absolute Lymphocyte Count 2.43 X10^3/uL (0.83-4.51); Basophil# 0.04 X10^3/uL; Basophil% 0.6 % (0-1); Eosinophil# 0.09 X10^3/uL; Eosinophils% 1.3 % (0-5); Hematocrit 39.7 % (37-47); Hemoglobin 13.1 g/dL (12.0-15.0); Lymphocyte # 2.43 X10^3/ul (4.0); Lymphocyte % 34.3 % (19-41); Mean Corpuscular Hgb 29.6 pg (27.0-32.0); Mean Corpuscular Volume 89.8 fL (81-99); Mean Platelet Vol. 9.2 fl (6.2-12.0); Monocyte# 0.51 X10^3/uL; Monocyte% 7.2 % (0-10); NRBC Flagged by Analyzer 0 % (0-5); Neutrophil % 56.3 % (47-70); Platelet Count 375 K/mm3 (150-450); RBC Distribution Width CV 13.1 % (11.6-14.6); Red Blood Count 4.42 M/mm3 (4.2-5.4); White Blood Count 7.1 K/mm3 (4.4-11.0)
[2019-06-17 16:01] LABS: BUN 19 mg/dL (7-18); BUN/Creat Ratio 31.4 RATIO (10-20); Creatinine, Serum 0.61 mg/dL (0.55-1.02); EST Glomerular Filtration Rate 111 mL/min (>60); Est Glom Filt Rate - Afr Amer 135 mL/min (>60); Glucose 73 mg/dL (74-106); Protein, Total 7.5 g/dL (6.4-8.2)
[2019-06-17 16:02] LABS: ALB/GLOB Ratio 1.1 RATIO (0.9-2.4); AST(SGOT) 25 U/L (15-37); Alanine Aminotransfer ALT/SGPT 48 U/L (13-56); Alkaline Phosphatase 113 U/L (45-117); Anion Gap 7 (5-15); Chloride 108 mmol/L (98-107); Cholesterol 194 mg/dL (200); Globulin 3.5 g/dL (2.2-4.2); High Density Lipoprotein 50 mg/dL; Potassium 3.8 mmol/L (3.5-5.1); Sodium Level 140 mmol/L (136-145); Triglycerides 143 mg/dL; Very Low Density Lipoprotein 29 mg/dL (5-40)
== END ==
PROVIDERS: Family Provider Family Medicine; PCP Family Medicine; Visit Provider Family Medicine
DX: Z00.00 Encounter for general adult medical examination without abnormal findings (principal)
CPT/HCPCS: 36415; 80053; 80061; 85025

== ENCOUNTER → 2019-07-01 | Outpatient (CLI) | payer OTHER, SELFPAY ==
[2019-03-25 10:58] VITALS: BMI 38.2
--- NOTE | 2019-07-01 18:15 | MRI_ITS ---
STUDY: MRI BRAIN WITH AND WITHOUT CONTRAST REASON FOR EXAM: Female, 48 years old. Neck pain and dizziness for the past month. TECHNIQUE: Standardized multiplanar fat and water weighted pulse sequences were obtained. IV Dotarem 19 was administered for the contrast portion of the examination. COMPARISON: None. FINDINGS: Normal size of the ventricles and extra-axial spaces for the patient's age. Normal white matter tracts of the supratentorial brain. Normal bilateral basal ganglia. Normal thalami. There is no extra-axial fluid accumulation. Normal flow voids within the major intracranial circulation suggesting patency by spin echo criteria. Normal venous enhancement. There is no enhancing intra-axial or extra-axial abnormality. Normal sella turcica, pituitary gland, infundibular stalk, optic chiasm and hypothalamus. Normal tectal plate and pineal gland. Normal midbrain, edgardo and medulla. Normal cerebellum. Normal basal cisterns. Normal bilateral temporal bones. Normal bilateral internal auditory canals. No demonstrated orbital abnormality, within the constraints of a routine brain study. Normal visualized paranasal sinuses. Normal calvarium and skull base. Normal visualized soft tissue structures. Normal visualized upper cervical spine. MRI/Brain W/WO Contrast IMPRESSION: Normal unenhanced and enhanced MRI of the brain. Electronically Signed: Ronny Cobian, at 21:03 EDT Tel , Service support ,
== END | disposition home or self-care (01) ==
LOC: MRI 17:47
PROVIDERS: Family Provider Family Medicine; PCP Family Medicine; Referring Provider Family Medicine; Visit Provider Family Medicine
DX: R42 Dizziness and giddiness (principal); R51 Headache
CPT/HCPCS: 70553; A9575

== ENCOUNTER 2019-12-21 11:24 | Emergency (ER) | payer SELFPAY ==
[2019-03-25 10:58] VITALS: BMI 38.2
[2019-12-21 11:24] VITALS: BP 150/80; PULSE 85; RESP 23; TEMP 37.2; O2SAT 95; BMI 39.4
--- NOTE | 2019-12-21 11:30 | RAD_ITS ---
STUDY: X-RAY CHEST REASON FOR EXAM: Female, 49 years old. DYSPNEA, HX OF RAPID HEART RATE TECHNIQUE: Single AP portable view of the chest. COMPARISON: August 08, 2018 chest x-ray FINDINGS: The lung markings are fairly similar to the prior study. There is subtle increase in the linear markings in the right lower lobe similar to prior study. There is no demonstrated pleural abnormality. Normal size heart. Normal mediastinum and blanca. Normal visualized pulmonary arteries. Normal visualized aortic arch and descending thoracic aorta. Normal visualized thoracic spine. Normal visualized ribs, clavicles, and shoulders. There is no demonstrated abnormality of the visualized soft tissue structures of the upper abdomen. RAD/Chest 1 View (Portable) IMPRESSION: Chronic appearing lung markings relatively stable since prior study no visualized acute focal infiltrate. Electronically Signed: Ivonne Crawford MD at 12:19 EDT Tel , Service support ,
--- NOTE | 2019-12-21 11:31 | EKG12_ITS ---
Test Reason : PALPITATIONS Blood Pressure : / mmHG Vent. Rate : 080 BPM Atrial Rate : 080 BPM P-R Int : 128 ms QRS Dur : 078 ms QT Int : 408 ms P-R-T Axes : 030 033 029 degrees QTc Int : 470 ms Normal sinus rhythm Normal ECG Confirmed by SAMANTHA WARNER, NICOLE ([id number]), digital editor MARGARITA MCKEON ([id number]) on 12/24/2019 9:29:25 AM Referred By: AP/RU Confirmed By:NICOLE SINGH MD
[2019-12-21 11:50] LABS: Absolute Neutrophil Count 3.2 X10^3/uL (2.0-7.7); Basophil# 0.04 X10^3/uL; Basophil% 0.6 % (0-1); Eosinophils% 1.6 % (0-5); Hematocrit 39.8 % (37-47); Hemoglobin 13.5 g/dL (12.0-15.0); Lymphocyte % 38.7 % (19-41); Mean Corp Hgb Conc 33.9 g/dL (32-36); Mean Corpuscular Hgb 29.9 pg (27.0-32.0); Mean Corpuscular Volume 88.1 fL (81-99); Mean Platelet Vol. 8.9 fl (6.2-12.0); Monocyte# 0.46 X10^3/uL; Monocyte% 7.4 % (0-10); NRBC Flagged by Analyzer 0 % (0-5); Neutrophil # 3.17 X10^3/uL (2.7-7.7); Neutrophil % 51.2 % (47-70); Platelet Count 365 K/mm3 (150-450); RBC Distribution Width SD 41.9 fl (35.1-43.9); Red Blood Count 4.52 M/mm3 (4.2-5.4); White Blood Count 6.2 K/mm3 (4.4-11.0)
[2019-12-21 12:03] LABS: Anion Gap 7 (5-15); BUN 20 mg/dL (7-18); Calcium,Total 9.3 mg/dL (8.5-10.1); Chloride 112 mmol/L (98-107); Creatinine, Serum 0.61 mg/dL (0.55-1.02); EST Glomerular Filtration Rate 111 mL/min (>60); Est Glom Filt Rate - Afr Amer 134 mL/min (>60); Estimated Creatinine Clearance 91.27 ml/min; Glucose 93 mg/dL (74-106); Potassium 3.6 mmol/L (3.5-5.1); Sodium Level 143 mmol/L (136-145)
[2019-12-21 12:41] VITALS: BP 124/77; PULSE 73; RESP 18; O2SAT 98
--- NOTE | 2019-12-21 12:46 | ED.DCSUM_ITS ---
History of Present Illness <Adalid Fernandez - Last Filed: 12/21/19 13:19> Informant: Patient Onset: Today Context: Sudden Onset Timing: Lasts - 30 minutes. resolved LIGHT COIL WINDER Quality: heart racing Location: chest Current Severity: Mild Maximum Severity: Severe Worsened by: nothing Relieved by: rest Associated Symptoms: lightheadedness Narrative: 49-year-old female who has a history of palpitations presents to the emergency department with palpitations. She was getting ready for work this morning she had an episode where she felt her heart racing she got lightheaded she states it lasted about 30 minutes and resolved and she presented to the emergency depart ment for evaluation. She is asymptomatic on arrival. Prior to this episode she has felt well. She has not had any recent illnesses hospitalizations or any sick contacts. She has had similar symptoms in the past approximately 1 year ago when she ended up having a Holter monitor, a cardiac catheterization as well as an echocardiogram. Since that time she has been on metoprolol but no intervention was needed. Prior similar symptoms: Yes Recent Illness/Hospitalization: No <Axel Washington - Last Filed: 12/21/19 13:38> Chief Complaint: Palpitations Past Medical History <RebeccaAdalid - Last Filed: 12/21/19 13:19> Prior records reviewed: Yes Past Medical History: - - HTN, IBS Surgical History: - - colonoscopy, cardiac cath Lives: Alone Smoking Status: Former smoker Alcohol: None Drugs: None <Axel Washington - Last Filed: 12/21/19 13:38> - Allergies and Home Meds Allergies/Adverse Reactions: Allergies egg Allergy (Mild, Verified 12/21/19 11:26) Unknown Vomiting, Dirrhea lactose Allergy (Verified 12/21/19 11:26) Nausea/Vom/Diarrhea Primary Care Physician: Ambrose Olivares DO [Primary Care Provider] - Review of Systems All systems negative except as indicated General: Denies: Chills, Fever, Malaise Eyes: Denies: Visual changes - left, Visual changes - right, Visual changes - bilaterally, Blurred vision - left, Blurred vision - right, Blurred Vision - bilaterally, Diplopia, -, - ENT: Denies: Bilateral ear pain, Left ear pain, Right ear pain, Rhinorrhea, Sore throat, -, - Cardiovascular: Reports: Palpitations, Heart racing. Denies: Chest pain Respiratory: Denies: Dyspnea, Cough, Sputum, Dyspnea on exertion, Orthopnea, Pa roxysmal nocturnal dyspnea, -, - Gastrointestinal: Denies: Abdominal pain, Nausea, Vomiting, Diarrhea, Constipation, Melena, Hematochezia, -, - Genitourinary: Denies: Dysuria, Hematuria, Frequency, -, - Musculoskeletal: Denies: Myalgias, Arthralgias, Neck pain, Back pain, Swelling, Extremity Pain, -, - Skin: Denies: Rash, Abscess, Abrasions, Wounds, -, - Neurological: Denies: Headache, Weakness, Parasthesia, Numbness, -, - Psych: Denies: Depression, Anxiety <Axel Washington - Last Filed: 12/21/19 13:38> Physical Exam Vital Signs/Narrative: Vital Signs Temp Pulse Resp BP Pulse Ox 12/21/19 12:41 73 18 124/77 H 98 12/21/19 11:24 98.9 F 85 23 H 150/80 H 95 <Adalid Fernandez - Last Filed: 12/21/19 13:19> Vital Signs/Narrative: Vital Signs Temp Pulse Resp BP Pulse Ox 12/21/19 11:24 98.9 F 85 23 H 150/80 H 95 Inital Vital Signs reviewed: Yes General: Well nourished, Well developed, No Acute Distress Head: Normocephalic, Atraumatic Eyes: Perrl, EOMI ENT: Moist mucous membranes Neck: Supple, Nontender, No lymphadenopathy, No JVD Cardiovascular: Regular rate, Regular rhythm, No murmurs Respiratory: No distress, CTA bilaterally, Chest nontender Abdomen: Soft, Nontender, Nondistended, Normal bowel sounds, No masses Back: Nontender, Normal Inspection Extremities: Nontender, No edema Skin: Normal color, No rash Neurological: Alert, Oriented x3 Psychological: Normal affect, Normal Mood <Axel Washington - Last Filed: 12/21/19 13:38> Diagnostic/Tx/Re-eval - Medical Decision Making Patient was seen with me. I did a [id number] examination with the patient. Patient presents with palpitations that began today while she was getting ready for work. Patient states she felt like her heart was beating hard and fast. Patient denies any chest pain. Patient denies any shortness of breath. Patient does admit to some mild diaphoresis with this. Patient has had prior work-up for palpitations in the past which were all normal. Vital signs are stable. Patient is afebrile. Patient is in no acute distress. Oral mucosa is pink and moist. Neck is supple. Trachea is midline. There is no JVD. Heart was regular rate and rhythm. Lungs are clear and equal bilaterally. Abdomen is soft. Bowel sounds are normal. There is no tenderness. Cranial nerves II through XII are intact. There are no focal motor or sensory deficits noted. Extremities are intact. There is no calf tenderness or edema. EKG showed normal sinus rhythm with no acute ST or T wave changes. CBC, metabolic profile, and troponin were all within normal limits. Chest x-ray does not show any acute cardiopulmonary process. This was interpreted by the radiologist and myself. Patient was feeling better on reevaluation. Patient was instructed to follow-up with her primary care physician in 5 to 7 days. Patient understood and was agreeable with the plan. All questions were answered. <Adalid Fernandez - Last Filed: 12/21/19 13:19> Chest X-Ray - ED: 1 View, Read by ED Physician, Read by Radiologist, No Acute Disease - Rhythm Strip Rhythm Strip: Sinus Rhythm Rate: 80 Ectopy: None - EKG Initial EKG Interpretation: Sinus Rhythm, No Acute Injury Pattern Prior: Unchanged <Axel Washington - Last Filed: 12/21/19 13:38> ED Disposition <Adalid Fernandez - Last Filed: 12/21/19 13:19> <Axel Washington - Last Filed: 12/21/19 13:38> - Plan for ED Patient: Disposition: Home or Assisted Living Diagnosis: Palpitations Instructions: ED Palpitations Referrals: Ambrose Olivares DO [Primary Care Provider] -
[2019-12-21 13:23] VITALS: BP 113/78; PULSE 81; RESP 18; O2SAT 97
== END 2019-12-21 13:25 | disposition home or self-care (01) ==
LOC: ED 13:07
PROVIDERS: Emergency Provider Physician Assistant Medical; PCP Family Medicine
DX: R00.2 Palpitations (principal); R42 Dizziness and giddiness; I10 Essential (primary) hypertension; K58.9 Irritable bowel syndrome, unspecified; Z79.899 Other long term (current) drug therapy; Z87.891 Personal history of nicotine dependence
CPT/HCPCS: 71045; 80048; 84484; 85025; 93005; 99285; A4216

== ENCOUNTER 2021-10-18 16:57 | Outpatient (CLI) | payer OTHER, SELFPAY ==
--- NOTE | 2021-10-18 17:00 | RAD_ITS ---
STUDY: X-RAY - LUMBAR SPINE REASON FOR EXAM: Female, 51 years old. BACK PAIN TECHNIQUE: 5 view(s) of the lumbar spine were obtained. COMPARISON: September 19, 2017 lumbar spine x-ray FINDINGS: There is a normal physiologic lordosis. There is no substantial scoliosis. There is a normal alignment of the vertebrae. There is multilevel endplate spondylosis of the lumbar vertebrae. Normal disc space heights. The soft tissue structures are unremarkable. RAD/L/S Spine Min 4 Views IMPRESSION: There is visualized spondylosis. There is disc space narrowing L5-S1. There is no apparent acute loss of height or alignment. Electronically Signed: Ivonne Crawford MD at 8:01 EST Reading Location ID and State: [facility] / [place] Tel , Service support ,
== END 2021-10-18 23:59 | disposition home or self-care (01) ==
LOC: MTRAD 16:58
PROVIDERS: PCP Family Medicine; Referring Provider Family Medicine; Visit Provider Family Medicine
DX: M54.9 Dorsalgia, unspecified (principal)
CPT/HCPCS: 72110

== ENCOUNTER 2021-10-27 07:55 | Outpatient (CLI) | payer OTHER, SELFPAY ==
--- NOTE | 2021-10-27 07:56 | BI_ITS ---
MAMMOGRAPHY - BILATERAL SCREENING REASON FOR EXAM: Female, 51 years old. Routine annual screening examination. PERTINENT HISTORY: Non-contributory. TECHNIQUE: Digital bilateral breast sushma (3D mammographic acquisition) in the CC and MLO projections. 2-D mediolateral oblique (MLO) and craniocaudad (CC) views of both breasts were obtained. CAD: Full Field Digital Mammography with Computer Added Detection was performed. COMPARISON: Comparison is made with prior examination dated 02/01/2015. FINDINGS: Breast Composition: There are scattered areas of fibroglandular density. There are no dominant masses or suspicious calcifications. Stable small benign-appearing bilateral axillary lymph nodes. No other significant abnormalities are identified. There has been no significant change since the prior study. BI/SCRN MAMM (CAD)W/SUSHMA BILAT IMPRESSION: Stable bilateral screening mammogram. Yearly follow-up mammogram recommended. (A) ASSESSMENT CATEGORY: BIRADS Category 2: Benign. A letter regarding these results will be sent to the patient by the facility within 30 days. Approximately 10% of breast cancers are not detected by mammography. A normal mammogram should not delay biopsy of a clinically suspicious abnormality. [id number] Electronically Signed: Alexander Armendariz MD at 9:06 EST ,
== END 2021-10-27 23:59 | disposition home or self-care (01) ==
LOC: OPBI 07:55
PROVIDERS: PCP Family Medicine; Visit Provider Family Medicine
DX: Z12.31 Encounter for screening mammogram for malignant neoplasm of breast (principal)
CPT/HCPCS: 77063; 77067

== ENCOUNTER 2025-06-02 13:39 | Emergency (ER) | payer MEDICAID, SELFPAY ==
[2025-06-02 13:41] VITALS: BP 117/67; PULSE 75; RESP 18; TEMP 36.4; O2SAT 100; BMI 31.1
--- NOTE | 2025-06-02 15:05 | ED.VIS.FALL ---
HPI HPI - Fall History of Present Illness Chief Complaint: Fall Narrative Narrative: 54-year-old female past medical history of palpitations and tachycardia presents after fall off the back of a box truck. She states that she did not have the left portion up, turned around, and fell. This happened at 11:00, approximately 4 hours ago. She denies hitting her head or loss of consciousness. Took a while for her to get up and stand because she was having left ankle and left lower leg pain. She states she has left ankle pain whenever she weightbears and walks. She also has pain in the cleft of her buttocks, right near her tailbone. She denies hitting her head, loss of consciousness, or other injuries. She states her main concern is her left lower leg and her tailbone. She has not had a bowel movement since her injury. She took 2 Tylenol arthritis this morning which she usually takes. While she states her muscles and neck might be getting stiff and sore, she denies any pain with movement of her neck, no other injuries. She states she does not take any blood thinners. [facility] Medical History Diarrhea Sleep apnea Arthritis History of back problems Claudication Nonrheumatic mitral valve prolapse Paroxysmal supraventricular tachycardia Nonsustained ventricular tachycardia Obesity Nicotine abuse Anxiety and depression Osteoarthritis Lumbar spondylosis Home Medications ?Medication ?Instructions ?Recorded ?Last Taken ?Type meloxicam 15 mg tablet 15 mg PO DAILY 07/12/18 Unknown History naproxen 500 mg tablet 500 mg PO BID PRN #20 tabs 02/25/19 Unknown Rx metoprolol succinate 25 mg 25 mg PO DAILY #90 tabs 11/17/19 Unknown Rx tablet,extended release 24 hr dapagliflozin propanediol 10 mg 10 mg PO DAILY 06/02/25 Unknown History tablet (Farxiga) diltiazem HCl 180 mg 180 mg PO DAILY 06/02/25 Unknown History capsule,extended release 24 hr fexofenadine 60 mg tablet (Suzanne 60 mg PO BID 06/02/25 Unknown History Allergy) isosorbide mononitrate 30 mg 30 mg PO DAILY 06/02/25 Unknown History tablet,extended release 24 hr magnesium oxide 400 mg (241.3 mg 400 mg PO DAILY 06/02/25 Unknown History magnesium) tablet metoprolol tartrate 25 mg tablet 25 mg PO BID PRN PRN palpitations 06/02/25 Unknown History pantoprazole 20 mg tablet,delayed 20 mg PO DAILY 06/02/25 Unknown History release potassium chloride 20 mEq 20 meq PO DAILY 06/02/25 Unknown History tablet,extended release trazodone 50 mg tablet 50 mg PO QHS 06/02/25 Unknown History venlafaxine 75 mg capsule,extended 75 mg PO DAILY 06/02/25 Unknown History release 24 hr Allergy/AdvReac Type Severity Reaction Status Date / Time egg Allergy Mild Unknown Verified 06/02/25 13:41 gluten Allergy Hives Verified 06/02/25 13:41 lactose Allergy Nausea/Vom/ Verified 06/02/25 13:41 Diarrhea Family History Father Hypertension Cancer leukemia Mother CAD (coronary artery disease) Heart disease Brain aneurysm Surgical History H/O right heart catheterization History of laparoscopic cholecystectomy History of left heart catheterization History of tubal ligation H/O arthroscopy of left knee History of History of hysterectomy History of rhinoplasty Social History household members: significant other Smoking Status: Former smoker quit date: 07/01/18 Tobacco: How many years used: 30 how long ago did patient quit smokin, 1ppd second hand exposure: Yes alcohol intake: current substance use type: does not use caffeine: Yes Type: coffee Number of servings: 2 ROS ROS ED ROS Narrative Review of systems positive for left lower leg pain left ankle pain. Positive sacrum/coccyx pain. Worse with movement and weightbearing. No hitting of head, no loss of consciousness, no pain with range of motion of neck. No nausea or vomiting, no other symptoms. EXAM Physical Exam Narrative Exam Narrative: GCS 15. ABCs intact. HEENT examination grossly unremarkable. PERRL, EOMI. Neck soft and supple without meningismus, no vertebral point tenderness or bony step-off. Full range of motion without pain. Cardiovascular examination regular rate and rhythm. Lungs are clear to auscultation bilaterally. The abdomen is soft and nontender with positive bowel sounds. Neurological examination is nonfocal, nonlateralizing. Musculoskeletal examination shows no tenderness to palpation in the left hip area. No proximal fibular head tenderness. Positive tenderness palpation left lateral malleolus. Palpable dorsalis pedis pulse. No palpable Achilles tendon deficit. Able to plantarflex and dorsiflex foot. Able to lift leg off bed. No radicular symptoms. Const Vital Signs: 06/02/25 13:41 06/02/25 14:32 Temperature 97.5 F L Temperature Source Temporal Pulse Rate 75 Respiratory Rate 18 Respiratory Effort Normal Non-Labored Blood Pressure 117/67 Blood Pressure Mean 83 Pulse Ox 100 Oxygen Delivery Method Room Air MDM MDM MDM Narrative Medical decision making narrative: Differential diagnosis includes but not limited to left ankle fracture versus sprain versus tibia and fibula fracture versus contusion. She may have more of a sacral/coccyx contusion versus fracture. X-rays were obtained of the sacrum and coccyx as well as the left femur and left tibia/fibula. Patient declined any analgesics orally here currently. On my independent visual interpretation of the x-rays of the sacrum and coccyx, there is no evidence of an acute fracture. I reviewed the radiology report which confirms my independent interpretation. Additionally, on my independent interpretation of the x-ray of the left femur there is no fracture. I reviewed the radiology report as well which confirms my independent interpretation. Lastly, I independently interpreted the x-rays of the left tibia and fibula and see no evidence of an acute fracture. I reviewed the radiology report confirms my independent interpretation. At this point in time, I feel she can be discharged to follow-up with her primary care provider. [id number] analgesics, ice to affected areas, return instructions reviewed. Disposition is discharged home in stable condition. History & Record Review Discussion w/independent historian: Patient Radiography Diagnostic Testing: Clinical Impression(s) from Imaging Studies Femur X-Ray 06/02/25 15:15 IMPRESSION: No acute abnormality Reading Location: [facility] Sacrum and Coccyx X-Ray 06/02/25 15:15 IMPRESSION: No fracture. Reading Location: [id number] Tibia/Fibula X-Ray 06/02/25 15:15 IMPRESSION: No acute abnormality Reading Location: [facility] Discharge Plan Triage Chief Complaint: Fall ED Provider: Baltazar Jiang Dx/Rx/DC Orders Clinical Impression: Fall, Contusion of sacral region, Contusion of left lower extremity Instructions: ED Coccyx or Sacrum Contusion, ED Contusion, Lower Extremity, ED Mechanical Fall Prescriptions: No Action meloxicam 15 mg tablet 15 mg PO DAILY naproxen 500 MG tablet 500 mg PO BID PRN Qty: 20 0RF venlafaxine 75 mg capsule,extended release 24hr 75 mg PO DAILY trazodone 50 mg tablet 50 mg PO QHS diltiazem HCl 180 mg capsule,extended release 24hr 180 mg PO DAILY isosorbide mononitrate 30 mg tablet extended release 24 hr 30 mg PO DAILY pantoprazole 20 mg tablet,delayed release (DR/EC) 20 mg PO DAILY magnesium oxide 400 mg (241.3 mg magnesium) tablet 400 mg PO DAILY metoprolol tartrate 25 mg tablet 25 mg PO BID PRN PRN (Reason: palpitations) dapagliflozin propanediol [Farxiga] 10 mg tablet 10 mg PO DAILY potassium chloride 20 mEq tablet extended release 20 meq PO DAILY fexofenadine [Suzanne Allergy] 60 mg tablet 60 mg PO BID metoprolol succinate 25 mg tablet extended release 24 hr 25 mg PO DAILY Qty: 90 3RF Primary Care Provider: Matias Canas NP Referrals: Ambrose Olivares DO [Med Staff - [place] [facility] Att[facility], [facility]] Activity Restrictions/Additional Instructions: Follow-up with your primary care provider in 1 week if not improving. [id number] medications like Tylenol or ibuprofen as needed for pain. Ice to affected areas. Print Language: Sami Disposition Disposition: Home, Self Care
--- NOTE | 2025-06-02 15:15 | RAD_ITS ---
PROCEDURE: SACRUM-COCCYX MIN 2 VIEWS 06/02/2025 REASON FOR EXAM: TRAUMA TECHNIQUE: Procedure Code: RADSAC Modality: DX Procedure: SACRUM-COCCYX MIN 2 VIEWS COMPARISON: None FINDINGS: Bones: No fracture. Joints: Unremarkable Other: No foreign body RAD/Sacrum-Coccyx min 2 Views IMPRESSION: No fracture. Reading Location: [id number]
--- NOTE | 2025-06-02 15:15 | RAD_ITS ---
PROCEDURE: TIBIA FIBULA 2 VIEWS 06/02/2025 REASON FOR EXAM: TRAUMA TECHNIQUE: Procedure Code: RADTF Modality: DX Procedure: TIBIA FIBULA 2 VIEWS Laterality: Left COMPARISON: Femur x-ray of the same day FINDINGS: Bones: No fracture Joints: Normal alignment at the knee and ankle. Soft tissues: Soft tissues are unremarkable. RAD/Tibia & Fibula 2 Views IMPRESSION: No acute abnormality Reading Location: [id number]
--- NOTE | 2025-06-02 15:15 | RAD_ITS ---
PROCEDURE: FEMUR MIN 2 VIEWS 06/02/2025 REASON FOR EXAM: TRAUMA TECHNIQUE: Procedure Code: RADFEM Modality: DX Procedure: FEMUR MIN 2 VIEWS Laterality: Left COMPARISON: None FINDINGS: Bones: No fracture Joints: Normal alignment at the hip and knee. Soft tissues: Soft tissues are unremarkable. RAD/Femur Min 2 Views IMPRESSION: No acute abnormality Reading Location: [id number]
[2025-06-02 16:17] VITALS: BP 115/77; PULSE 70; RESP 16; TEMP 36.4; O2SAT 100
== END 2025-06-02 16:18 | disposition home or self-care (01) ==
PROVIDERS: Emergency Provider Emergency Medicine; PCP Nurse Practitioner Primary Care; Visit Provider Emergency Medicine
DX: S30.0XXA Contusion of lower back and pelvis, initial encounter (principal); S80.12XA Contusion of left lower leg, initial encounter; Z87.891 Personal history of nicotine dependence; W17.89XA Other fall from one level to another, initial encounter
CPT/HCPCS: 72220; 73552; 73590; 99282

== ENCOUNTER → 2025-08-03 | Outpatient (CLI) | payer MEDICAID, SELFPAY ==
--- NOTE | 2025-08-03 13:23 | MRI_ITS ---
PROCEDURE: LOWER EXT JOINT ONLY (ROUTINE) 08/03/2025 REASON FOR EXAM: CONTINUED PAINFUL POPPING AFTER ORA MEDS, STEROID TECHNIQUE: Procedure Code: MRILEJ Modality: MR Procedure: LOWER EXT JOINT ONLY (ROUTINE) T1, T2, PD, multiplanar and multisequence images were obtained of the left knee without IV contrast administration. COMPARISON: COMPARISON : None FINDINGS: Bone Marrow: There is focal marrow edema in the posterior lateral tibia at the tibiofibular articulation with linear low T1 signal components consistent with a subacute nondisplaced fracture. Sagittal image 39/48. Cruciate ligaments: The anterior cruciate ligament shows edema and attenuation in the mid and distal 2/3 without laxity, grade 2 sprain. The posterior cruciate appears intact. Collateral ligaments: The medial collateral ligament appears intact. The lateral collateral ligament complex appears intact. Menisci: There is no definite meniscus tear. Extensor mechanism: The distal quadriceps and patellar tendons appear intact. Cartilage: There is no focal chondromalacia. Effusion: There is a trace joint effusion. There is no significant Marcus's cyst. MRI/Lower Ext Joint Only (Routine) IMPRESSION: There is focal marrow edema in the posterior lateral tibia at the tibiofibular articulation with linear low T1 signal components consistent with a subacute nondisplaced fracture. Reading Location: [facility]
--- OUTSIDE RECORDS SUMMARY | 2025-08-03 18:50 | XMS RPT_ITS | CCD ---
Author Organization [facility] Care Team Providers Care Aircraft Part Assembler Name Role Phone Vivian Bacon N Unavailable Vivian Bacon Serina Unavailable KEATON MCCARTHY, ROBERTA Primary Care Physician [employer] MANAGER-CATERER'S AIDE, ROBERTA Attending Unavailabl e [employer] MANAGER-CATERER'S AIDE, ROBERTA Primary Care Unavailabl e [employer] MANAGER-CATERER'S AIDE, ROBERTA Attending Unavailabl e [employer] MANAGER-CATERER'S AIDE, ROBERTA Primary Care UnavailDEMARIO Mejia MD Attending Unavailable [employer] MANAGER-CATERER'S AIDE, ROBERTA Primary Care Unavailabl e [employer] MANAGER-CATERER'S AIDE, ROBERTA Attending Unavailabl e [employer] MANAGER-CATERER'S AIDE, ROBERTA Primary Care Unavailabl e [employer] MANAGER-CATERER'S AIDE, ROBERTA Attending Unavailabl e [employer] MANAGER-CATERER'S AIDE, ROBERTA Primary Care Unavailabl e [employer] MANAGER-CATERER'S AIDE, ROBERTA Primary Care Unavailabl e SARAH KIDD DO Attending Billie COATS MD, DR DENSON Attending Unavailab le [employer] MANAGER-CATERER'S AIDE, ROBERTA Primary Care Unavailcelia COATS MD, DR DENSON Attending Unavailab le [employer] MANAGER-CATERER'S AIDE, ROBERTA Primary Care Unavailabl e [employer] MANAGER-CATERER'S AIDE, ROBERTA Primary Care Unavailabl boyd COATS MD, DR DENSON Attending Unavailab le [employer] MANAGER-CATERER'S AIDE, ROBERTA Primary Care Unavailabl boyd COATS MD, DR DENSON Attending Unavailab Kristin WARNER, DR DENSON Attending Unavailab le [employer] MANAGER-CATERER'S AIDE, ROBERTA Primary Care Unavailabl e [employer] MANAGER-CATERER'S AIDE, ROBERTA Primary Care Unavailcelia COATS MD, DR DENSON Consulting Carrie Foster MD, DR DENSON Attending Unavailab Shweta WARNER, Baltazar Emergency Department Physician Keaton PATIENT CARE COORDINATOR-C, Roberta Primary Care Physician [phone] Baltes PATIENT CARE COORDINATOR-C, Roberta Referring Provider [phone] Baldomero PATIENT CARE COORDINATOR-C, Mendy Attending Physician [phone] Martin WARNER, Dr. Monzon Attending Physician [phone] Baltazar Jiang Attending Unavailable Baltes PATIENT CARE COORDINATOR, Roberta Primary Care Unavailable Nicolás Salazar Attending Unavailable Baltes PATIENT CARE COORDINATOR, Roberta Primary Care Unavailable Baltes PATIENT CARE COORDINATOR, Roberta Primary Care Unavailable Baltes PATIENT CARE COORDINATOR, Roberta Referring Unavailable Mendy Alexandre Attending Unavailable Baltes PATIENT CARE COORDINATOR, Roberta Primary Care Unavailable Baltes PATIENT CARE COORDINATOR, Roberta Referring Unavailable Mendy Alexandre Attending Unavailable Baltazar Jiang MD Attending Physician Baltazar Jiang MD Emergency Department Physician Baltes PATIENT CARE COORDINATOR-C, Roberta Primary Care Physician [phone] Baltes PATIENT CARE COORDINATOR-C, Roberta Referring Provider [phone] Baldomero PATIENT CARE COORDINATOR-C, Mendy Attending Physician Martin WARNER, Dr. Monzon Attending Physician [phone] Allergies Allergy Classification Reported Allergen(s) Allergy Type Date of Onset Reaction(s) Facility (9 sources) Egg; Translations: [EGGS] food allergy Vomit/diarrhea [facility] Work Phone: (7 sources) Gluten Food intolerance Bloatin, gas-non Celiac [facility] (12 sources) Lactose; Translations: [lactose] Drug Allergy 06-02-20 25 diarrhea, gas, bloating, Nausea/Vom/Gisella rrhea [facility] (7 sources) seasonal enviromental Allergy to substance Typical [facility] (4 sources) egg extract Drug Allergy 06-02-20 Unknown [facility] Comment on above: Vomiting, Dirrhea (4 sources) Wheat gluten extract Drug Allergy 06-02-20 25 Hives [facility] (1 source) egg extract Drug Allergy 06-24-20 [facility]ository (1 source) Gluten Drug allergy (disorder) 06-24-20 [facility] Repository Medications Current Medications Medication Drug Class(es) Dates Sig (Normalized) Sig (Original) acetaminophen 500 mg oral tablet (3 sources) Start: 07-12-2023 acetaminophen 500 mg oral tablet Dose : 1,000 mg = 2 tab(s), Oral, TID, PRN pain or fever, 0 Refill(s) Start Date: 07/12/23 Status: Ordered amylase [id number] unt / lipase [id number] unt / protease [id number] unt delayed release oral capsule (2 sources) Start: 10-25-2023 End: 11-24-2023 take 1 capsule by mouth three times daily Creon 36,000 units oral delayed release capsule 1 cap(s), Oral, TID, # 90 cap(s), 0 Refill(s), Pharmacy: [facility] #[id number], Pancreatic insufficiency, 162.6, cm, 10/25/23 9:58:00 EST, Height, kg, 10/25/23 9:58:00 EST, Dosing Weight Start Date: 10/25/23 Stop Date: 11/24/23 Status: Ordered Start: 10-11-2023 End: 11-10-2023 take 1 capsule by mouth three times daily Creon 12,000 units oral delayed release capsule Dose = 1 cap(s), Oral, TID, # 90 cap(s), 0 Refill(s), Pharmacy: [facility] #[id number], Exocrine pancreatic insufficiency, 162.6, cm, 10/11/23 9:30:00 EST, Height, kg, 10/11/23 9:30:00 EST, Dosing Weight Start Date: 10/11/23 Stop Date: 11/10/23 Status: Ordered dapagliflozin 10 mg oral tablet (4 sources) Sodium-Glucose Cotransporter 2 Inhibitor Start: 06-02-2025 take 1 tablet by mouth once daily Dapagliflozin Propanediol (Dapagliflozin Propanediol 10 Mg Tablet) 10 mg tablet Active 10 mg PO DAILY June 01, 2025 11:00pm Complies with drug therapy 24 hr dilTIAZem hydrochloride 180 mg extended release oral capsule (5 sources) Calcium Channel Eladio Start: 06-02-2025 take 1 capsule by mouth once daily Diltiazem Hcl 180 mg capsule,extended release 24hr Active 180 mg PO DAILY June 01, 2025 11:00pm Complies with drug therapy Start: 08-12-2024 Cardizem CD 18 0 mg/24 hours oral capsule, extended release Dose : 180 mg = 1 cap(s), Oral, qDay, # 30 cap(s), 6 Refill(s), Pharmacy: [facility] #[id number], 160, cm, 08/12/24 8:56:00 EST, Height, kg, 08/12/24 8:56:00 EST, Dosing Weight Start Date: 08/12/24 Status: Ordered fexofenadine hydrochloride 60 mg oral tablet (4 sources) Histamine-1 Receptor Antagonist Start: 06-02-2025 take 1 tablet by mouth twice daily Fexofenadine (Suzanne Allergy) 60 mg tablet Active 60 mg PO TWICE A DAY June 01, 2025 11:00pm Complies with drug therapy ibuprofen 200 mg oral tablet (2 sources) Nonsteroidal Anti-inflammatory Drug Start: 07-12-2023 ibuprofen 200 mg oral tablet Dose : 400 mg = 2 tab(s), Oral, q6hr, PRN pain or fever, 0 Refill(s) Start Date: 07/12/23 Status: Ordered 24 hr isosorbide mononitrate 30 mg extended release oral tablet (4 sources) Nitrate Vasodilator Start: 06-02-2025 take 1 tablet by mouth once daily, then take 1 tablet by mouth every twenty-fou r hours Isosorbide Mononitrate 30 mg tablet extended release 24 hr Active 30 mg PO DAILY June 01, 2025 11:00pm Complies with drug therapy magnesium oxide 400 mg oral tablet (4 sources) Start: 06-02-2025 take 1 tablet by mouth once daily Magnesium Oxide 400 mg (241.3 mg magnesium) tablet Active 400 mg PO DAILY June 01, 2025 11:00pm Complies with drug therapy methylPREDNISolone 4 mg oral tablet (2 sources) Corticosteroid Start: 06-10-2025 take 1 tablet by mouth once Methylprednisolone (Medrol (David)) 4 mg tablets,dose pack Active 0 PO per package directions 21 June 09, 2025 11:00pm PO PER PKG DIR for 6 days Complies with drug therapy metoprolol tartrate 25 mg oral tablet (20 sources) beta-Adrenergic Eladio Start: 06-02-2025 take 1 tablet by mouth twice daily as needed Metoprolol Tartrate 25 mg tablet Active 25 mg PO TWICE DAILY NEEDED as needed for palpitations June 01, 2025 11:00pm Complies with drug therapy Start: 08-12-2024 Metoprolol Tar trate 25 mg oral tablet Dose : 25 mg = 1 tab(s), Oral, BID, as needed for palpitations, # 30 tab(s), 6 Refill(s), Pharmacy: [facility] #[id number], 160, cm, 08/12/24 8:56:00 EST, Height, kg, 08/12/24 8:56:00 EST, Dosing Weight Start Date: 08/12/24 Status: Ordered Start: 04-17-2023 End: 10-14-2023 Metoprolol Succinate ER 50 m g oral TABLET extended release Dose : 50 mg = 1 tab(s), Oral, qDay, # 90 tab(s), 1 Refill(s), Pharmacy: [facility] #[id number], Palpitations, 162.6, cm, 04/17/23 12:34:00 EDT, Height, kg, 04/17/23 12:34:00 EDT, Dosing Weight Start Date: 04/17/23 Stop Date: 10/14/23 Status: Ordered Start: 11-20-2018 End: 11-17-2019 take 1 tablet by mouth once daily Metoprolol Succinate 25 mg tablet extended release 24 hr Active 25 mg PO DAILY 90 3 November 17, 2019 2:41pm Complies with drug therapy Start: 11-19-2018 End: 11-20-2018 take 2 tablets by mouth once daily Metoprolol Succinate 50 mg tablet extended release 24 hr Discontinued 25 mg PO DAILY November 19, 2018 2:16pm November 20, 2018 10:34am Start: 07-11-2018 End: 11-19-2018 take 1 tablet by mouth once daily Metoprolol Succinate 50 mg tablet extended release 24 hr Discontinued 50 mg PO DAILY July 11, 2018 12:00am November 19, 2018 2:18pm pantoprazole 20 mg delayed release oral tablet (5 sources) Proton Pump Inhibitor Start: 06-02-2025 take 1 tablet by mouth once daily Pantoprazole 20 mg tablet,delayed release (DR/EC) Active 20 mg PO DAILY June 01, 2025 11:00pm Complies with drug therapy Start: 08-12-2024 Protonix 20 mg oral enteric coated tablet Dose : 20 mg = 1 tab(s), Oral, qDay, # 30 tab(s), 6 Refill(s), Pharmacy: [facility] #[id number], 160, cm, 08/12/24 8:56:00 EST, Height, kg, 08/12/24 8:56:00 EST, Dosing Weight Start Date: 08/12/24 Status: Ordered potassium chloride 20 meq extended release oral tablet (4 sources) Start: 06-02-2025 take 1 tablet by mouth once daily Potassium Chloride 20 mEq tablet extended release Active 20 meq PO DAILY June 01, 2025 11:00pm Complies with drug therapy 24 hr venlafaxine 75 mg extended release oral capsule (13 sources) Serotonin and Norepinephrine Reuptake Inhibitor Start: 06-02-2025 take 1 capsule by mouth once daily Venlafaxine 75 mg capsule,extended release 24hr Active 75 mg PO DAILY June 01, 2025 11:00pm Complies with drug therapy Start: 08-06-2024 End: 02-02-2025 venlafaxine 75 mg oral capsu le, extended release Dose : 75 mg = 1 cap(s), Oral, qDay, # 90 cap(s), 1 Refill(s), Pharmacy: [facility] #[id number], Depression Anxiety, 160.5, cm, 08/06/24 10:57:00 EST, Height, kg, 08/06/24 10:57:00 EST, Dosing Weight Start Date: 08/06/24 Stop Date: 02/02/25 Status: Ordered Start: 04-17-2023 End: 10-14-2023 venlafaxine 75 mg oral capsu le, extended release Dose : 75 mg = 1 cap(s), Oral, qDay, # 90 cap(s), 1 Refill(s), Pharmacy: [facility] #[id number], Anxiety, 162.6, cm, 04/17/23 12:34:00 EDT, Height, kg, 04/17/23 12:34:00 EDT, Dosing Weight Start Date: 04/17/23 Stop Date: 10/14/23 Status: Ordered Start: 05-31-2016 End: 06-02-2025 take 1 tablet by mouth once daily Venlafaxine 75 MG tablet Discontinued 75 mg PO DAILY May 30, 2016 11:00pm June 02, 2025 1:30pm Start: 01-06-2016 EFFEXOR XR 150 MG [id number] VENLAFAXINE HCL [id number] Kim Grubbs Start: 01-06-2016 EFFEXOR XR 150 MG [id number] VENLAFAXINE HCL [id number] Kim Grubbs Completed/Discontinued Medications Medication Drug Class(es) Dates Sig (Normalized) Sig (Original) acetaminophen 325 mg / oxyCODONE hydrochloride 5 mg oral tablet (4 sources) Opioid Agonist Start: 05-31-2016 End: 07-11-2018 Oxycodone-Acetaminop hen 1 TABLET tablet Discontinued 1 - 2 {tbl} PO EVERY 6 HOURS NEEDED as needed for Pain 60 May 30, 2016 11:00pm July 11, 2018 7:54pm [id number] 200 actuat albuterol 0.09 mg/actuat metered dose inhaler (3 sources) beta2-Adrenergic Agonist Start: 10-11-2023 End: 01-09-2024 take 2 puff(s) by inhalation every six hours as needed for wheezing ProAir HFA MDI (90 mcg/inh) inhalation aerosol 2 puff(s), Inhalation, q6h, PRN as needed for wheezing, # 8.5 gram(s), 0 Refill(s), Pharmacy: [facility] #[id number], Wheezing Tobacco use, 162.6, cm, 10/11/23 9:30:00 EST, Height, kg, 10/11/23 9:30:00 EST, Dosing Weight Start Date: 10/11/23 Stop Date: 01/09/24 Status: Ordered ascorbic acid 1000 mg oral tablet (4 sources) Vitamin C Start: 07-11-2018 End: 11-19-2018 take 1 g by mouth once daily Ascorbic Acid (Vitamin C) 1,000 mg tablet Discontinued 1 g PO DAILY July 11, 2018 12:00am November 19, 2018 1:30pm aspirin 81 mg delayed release oral tablet (4 sources) Platelet Aggregation Inhibitor, Nonsteroidal Anti-inflammatory Drug Start: 07-11-2018 End: 11-19-2018 take 1 tablet by mouth once daily Aspirin (Adult Aspirin Regimen) 81 mg tablet,delayed release (DR/EC) Discontinued 81 mg PO DAILY July 11, 2018 12:00am November 19, 2018 1:30pm calcium carbonate 600 mg / cholecalciferol 0.01 mg oral tablet (4 sources) Vitamin D Start: 07-12-2018 End: 11-19-2018 Calcium Carbonate-Vit D3-Min 600 mg calcium- 400 unit tablet Discontinued 1 {tbl} PO DAILY July 12, 2018 12:00am November 19, 2018 1:30pm cholecalciferol 0.025 mg oral capsule (4 sources) Vitamin D Start: 07-12-2018 End: 11-19-2018 take 1 capsule by mouth once daily Cholecalciferol (Vitamin D3) 1,000 unit capsule Discontinued 1000 U PO DAILY July 12, 2018 12:00am November 19, 2018 1:30pm sugar-free cholestyramine resin 4000 mg powder for oral suspension (6 sources) Bile Acid Sequestrant Start: 04-17-2023 End: 04-24-2023 cholestyramine sugar-free 4 g/5 g oral powder for reconstitution 1 packet(s), Oral, TID, PRN abdominal pain/diarrhea, # 21 packet(s), 0 Refill(s), Pharmacy: [facility] #[id number], Diarrhea, 162.6, cm, 04/17/23 12:34:00 EDT, Height, kg, 04/17/23 12:34:00 EDT, Dosing Weight Start Date: 04/17/23 Stop Date: 04/24/23 Status: Ordered Start: 05-31-2016 End: 07-11-2018 take 378 g by mouth once daily Cholestyramine (With Sugar) 378 GM powder Discontinued 378 g PO DAILY May 30, 2016 11:00pm July 11, 2018 7:53pm clopidogrel 75 mg oral tablet (4 sources) [id number] Platelet Inhibitor Start: 08-06-2018 End: 11-19-2018 take 1 tablet by mouth once daily Clopidogrel 75 mg tablet Discontinued 75 mg PO DAILY 02 10August 06, 2018 12:00am November 19, 2018 1:30pm loratadine 10 mg oral tablet (6 sources) Start: 01-06-2016 End: 07-11-2018 take 1 tablet by mouth once daily Loratadine 10 MG tablet Discontinued 10 mg PO DAILY May 30, 2016 11:00pm July 11, 2018 7:53pm Start: 01-06-2016 CLARITIN 10 MG CAPS LORATADINE [id number] Kim Grubbs meloxicam 15 mg oral tablet (13 sources) Nonsteroidal Anti-inflammatory Drug Start: 07-12-2018 End: 06-10-2025 take 1 tablet by mouth once daily Meloxicam 15 mg tablet Discontinued 15 mg PO DAILY July 12, 2018 12:00am June 10, 2025 9:32am Start: 01-06-2016 End: 07-12-2018 take 1 tablet by mouth once daily Meloxicam 7.5 MG tablet Discontinued 7.5 mg PO DAILY May 30, 2016 11:00pm July 12, 2018 12:02pm montelukast 10 mg oral tablet (9 sources) Leukotriene Receptor Antagonist Start: 05-31-2016 End: 06-02-2025 take 1 tablet by mouth once daily Montelukast 10 MG tablet Discontinued 10 mg PO DAILY May 30, 2016 11:00pm June 02, 2025 1:31pm Start: 01-06-2016 SINGULAIR 4 MG CHEW MONTELUKAST SODIUM [id number] Kim Grubbs Start: 01-06-2016 SINGULAIR 4 MG CHEW MONTELUKAST SODIUM [id number] Kim Grubbs Multivitamin tablet (4 sources) Start: 07-11-2018 End: 11-19-2018 Multivitamin tablet Disconti nued 1 {tbl} PO DAILY July 11, 2018 12:00am November 19, 2018 1:30pm Start: 07-11-2018 End: 11-19-2018 Multivitamin tablet Disconti nued 1 {tbl} PO DAILY July 11, 2018 1:00am November 19, 2018 2:30pm naproxen 500 mg oral tablet (4 sources) Nonsteroidal Anti-inflammatory Drug Start: 02-25-2019 End: 06-10-2025 take 1 tablet by mouth twice daily as needed Naproxen 500 MG tablet Discontinued 500 mg PO TWICE DAILY NEEDED February 24, 2019 11:00pm June 10, 2025 9:54am promethazine hydrochloride 25 mg oral tablet (4 sources) Phenothiazine Start: 05-31-2016 End: 07-11-2018 take 1 tablet by mouth every eight hours as needed for nausea Promethazine 25 MG tablet Discontinued 25 mg PO EVERY 8 HOURS NEEDED as needed for Nausea May 30, 2016 11:00pm July 11, 2018 7:54pm 24 hr topiramate 25 mg extended release oral capsule (4 sources) Start: 07-11-2018 End: 11-19-2018 take 1 capsule by mouth twice daily Topiramate 25 mg capsule,extended release 24hr Discontinued 25 mg PO TWICE A DAY July 11, 2018 12:00am November 19, 2018 1:31pm traZODone hydrochloride 50 mg oral tablet (5 sources) Serotonin Reuptake Inhibitor Start: 06-02-2025 End: 06-10-2025 take 1 tablet by mouth at bedtime Trazodone 50 mg tablet Discontinued 50 mg PO AT BEDTIME June 01, 2025 11:00pm June 10, 2025 9:54am Start: 08-06-2024 End: 09-05-2024 traZODone 50 mg oral tablet Dose : 50 mg = 1 tab(s), Oral, qHS, # 90 tab(s), 1 Refill(s), Pharmacy: [facility] #[id number], Insomnia, 160.5, cm, 08/06/24 10:57:00 EST, Height, kg, 08/06/24 10:57:00 EST, Dosing Weight Start Date: 08/06/24 Stop Date: 09/05/24 Status: Ordered zolpidem tartrate 5 mg oral tablet (4 sources) gamma-Aminobutyric Acid-ergic Agonist Start: 05-31-2016 End: 07-11-2018 take 1 tablet by mouth at bedtime as needed Zolpidem 5 MG tablet Discontinued 5 mg PO AT BEDTIME NEEDED as needed for Insomnia 14 0 May 30, 2016 11:00pm July 11, 2018 7:54pm Problems Active Problems Problem Classification Problem Date Documented Da te Episodic/Chronic Allergic reactions (7 sources) Non-celiac gluten sensitivity 01-23-2023 Chronic Anxiety disorders (12 sources) Anxiety; Translations: [Posttraumatic stress disorder] 01-25-2023 Chronic Cardiac dysrhythmias (18 sources) Nonsustained ventricular tachycardia ; Translations: [Paroxysmal supraventricular tachycardia] 08-12-2024 Chronic Cardiac dysrhythmias (15 sources) Palpitations; Translations: [Palpitations] 01-25-2023 Episodic E Codes: Fall (4 sources) Fall; Translations: [Unspecified fall, initial encounter] 06-02-2025 Episodic Heart valve disorders (4 sources) Non-rheumatic mitral valve prolapse; Translations: [Nonrheumatic mitral (valve) prolapse] 07-11-2018 Chronic Joint disorders and dislocations; trauma-related (2 sources) Defect of articular cartilage; Translations: [Other articular cartilage disorders, unspecified site] Onset: 6 06-13-2016 Chronic Malaise and fatigue (1 source) Fatigue; Translations: [Other fatigue] Onset: 4 Episodic Mood disorders (5 sources) Depressive disorder 07-09-2024 Chronic Nonspecific chest pain (10 sources) Chest pain; Translations: [Chest pain, unspecified] Onset: 4 Episodic Osteoarthritis (2 sources) Osteoarthritis of knee; Translations: [Unilateral primary osteoarthritis, left knee] Onset: 6 01-06-2016 Chronic Other gastrointestinal disorders (7 sources) Diarrhea 01-25-2023 Episodic Other injuries and conditions due to external causes (1 source) Encounter for examination and observation following other accident; Translations: [Encounter for examination and observation following other accident] Onset: 5 Episodic Other lower respiratory disease (5 sources) Dyspnea 08-12-2024 Episodic Other lower respiratory disease (4 sources) Dyspnea on exertion; Translations: [Shortness of breath] 12-24-2018 Episodic Other non-traumatic joint disorders (4 sources) Pain in left knee; Translations: [Left knee pain] Onset: 5 06-09-2025 Episodic Other nutritional; endocrine; and metabolic disorders (1 source) Hypomagnesemia; Translations: [Hypomagnesemia] Onset: 4 Chronic Other nutritional; endocrine; and metabolic disorders (4 sources) Body mass index 30+ - obesity; Translations: [Obesity, unspecified] 12-24-2018 Chronic Other screening for suspected conditions (not mental disorders or infectious disease) (4 sources) Cardiovascular stress test abnormal; Translations: [Abnormal result of other cardiovascular function study] 08-06-2018 Episodic Pancreatic disorders (not diabetes) (7 sources) Exocrine pancreatic insufficiency 01-25-2023 Episodic Peripheral and visceral atherosclerosis (4 sources) Intermittent claudication; Translations: [Peripheral vascular disease, unspecified] 07-11-2018 Chronic Residual codes; unclassified (4 sources) Obstructive sleep apnea syndrome; Translations: [Obstructive sleep apnea (adult) (pediatric)] 03-25-2019 Chronic Residual codes; unclassified (5 sources) FH: premature coronary heart disease 08-12-2024 Episodic Residual codes; unclassified (5 sources) Insomnia 07-09-2024 Episodic Residual codes; unclassified (4 sources) Harmful pattern of use of nicotine; Translations: [Tobacco use] 12-24-2018 Episodic Comment on above: Eligible for a scree renae CT of the lungs at age 54 Sprains and strains (4 sources) Sprain of unspecified collateral ligament of left knee, initial encounter; Translations: [Sprain of left knee] Onset: 5 06-10-2025 Episodic Superficial injury; contusion (8 sources) Contusion of sacral region; Translations: [Contusion of lower back and pelvis, initial encounter] 06-02-2025 Episodic Unclassified (2 sources) Aftercare ; Translations: [Encounter for other orthopedic aftercare] Onset: 6 06-13-2016 Unclassified (5 sources) Patient encounter status 07-09-2024 Past or Other Problems Problem Classification Problem Date Documented Da te Episodic/Chronic Joint disorders and dislocations; trauma-related (2 sources) Other tear of medial meniscus, current injury, left knee, initial encounter; Translations: [Other tear of medial meniscus, current injury, left knee, initial encounter] Onset: 01-06-2016 01-07-2016 Episodic Other connective tissue disease (4 sources) Achilles tendinitis; Translations: [Plantar fasciitis] Onset: 03-07-2016 01-11-2017 Episodic Other connective tissue disease (1 source) Plantar fasciitis; Translations: [Plantar fascial fibromatosis] Onset: 05-23-2016 05-24-2016 Episodic Other connective tissue disease (1 source) Heel pain; Translations: [Pain in left foot] Onset: 03-07-2016 03-07-2016 Episodic Other non-traumatic joint disorders (3 sources) Ankle pain; Translations: [Knee pain] Onset: 01-06-2016 11-21-2016 Episodic Other non-traumatic joint disorders (1 source) Knee pain; Translations: [Pain in left knee] Onset: 01-06-2016 01-06-2016 Episodic Results Test Name Value Interpretation Reference Range Facility Orthopedic Visit Reporton Orthopedic Visit Report [facility] [address] [place] [address] OFFICE VISIT Date of Service: 06/24/25 MR#: [id number] Acct: [id number] Name: LISBETH VALDEZ Rep #: [id number] 15 : 1970 Provider: JORGE helm Age/Sex: 54/F Location: [facility] Status: Signed Intake Vital Signs 06/10/25 10:31 06/24/25 08:59 Height 5 ft 3 in 5 ft 3 in Weight: 172 lb BMI 30.4 Intake Visit Reasons: LEFT KNEE Chief Complaint: Left Knee 2 week follow up Accompanied by: Self Is patient in pain?: Yes Pain scale (1-10): 4 Allergies egg Allergy (Mild, Verified 06/24/25 09:03) Unknown gluten Allergy (Verified 06/24/25 09:03) Hives lactose Allergy (Verified 06/24/25 09:03) Nausea/Vom/Diarrhea Medications ???Medication ???Instructions ???Recorded ???Confirmed ???Type metoprolol succinate 25 mg 25 mg PO DAILY #90 tabs 11/17/19 1 Rx tablet,extended release 24 hr dapagliflozin propanediol 10 mg 10 mg PO DAILY 06/02/25 06/24/25 H istory tablet (Farxiga) diltiazem HCl 180 mg 180 mg PO DAILY 06/02/25 06/24/25 History capsule,extended release 24 hr fexofenadine 60 mg tablet (Suzanne 60 mg PO BID 06/02/25 06/24/25 H istory Allergy) isosorbide mononitrate 30 mg 30 mg PO DAILY 06/02/25 06/24/25 H istory tablet,extended release 24 hr magnesium oxide 400 mg (241.3 mg 400 mg PO DAILY 06/02/25 06/24/25 History magnesium) tablet metoprolol tartrate 25 mg tablet 25 mg PO BID PRN PRN palpitations 06/02/25 06/24/25 History pantoprazole 20 mg tablet,delayed 20 mg PO DAILY 06/02/25 06/24/25 History release potassium chloride 20 mEq 20 meq PO DAILY 06/02/25 06/24/25 History tablet,extended release venlafaxine 75 mg capsule,extended 75 mg PO DAILY 06/02/25 06/24/25 History release 24 hr methylprednisolone 4 mg tablets in See Rx Instructions PO PER PKG D IR 06/10/25 06/24/25 Rx a dose pack (Medrol (David)) #21 tabs Have you fallen in the past year?: No PFSH Medical History Diarrhea Sleep apnea Arthritis History of back problems Claudication Nonrheumatic mitral valve prolapse Paroxysmal supraventricular tachycardia Nonsustained ventricular tachycardia Obesity Nicotine abuse Anxiety and depression Osteoarthritis Lumbar spondylosis Surgical History H/O right heart catheterization History of laparoscopic cholecystectomy History of left heart catheterization History of tubal ligation H/O arthroscopy of left knee History of History of hysterectomy History of rhinoplasty Family History Father Hypertension Cancer leukemia Mother CAD (coronary artery disease) Heart disease Brain aneurysm Social History household members: significant other Smoking Status: Former smoker quit date: 07/01/18 Tobacco: How many years used: 30 how long ago did patient quit smokin, 1ppd second hand exposure: Yes alcohol intake: current substance use type: does not use caffeine: Yes Type: coffee Number of servings: 2 HPI LEFT KNEE Details: This documentation accurately reflects the service provided and the decisions made by me, JORGE Walker 06/24/25 0859. Part of today???s visit was documented by Duc Hernandez MA, acting as scribe. LISBETH VALDEZ is a pleasant 54 year old F here today for 2 week f/u L knee injury/sprain. DOI 06/02/2025 after stepping backwards and fell out of the back of a box truck. Initially, had frequent episodes of knee giving out. Patient states that has significantly lessened. Overall rates she feels 50% improved at this time. Did notice positive effect with oral Medrol Dosepak, Tylenol on as needed basis helped. Patient continues to wear the hinged knee brace with weightbearing activities which helps with stability. Mild flares of swelling after increased activity. HX left knee mfc chondral defect, synovitis plica with Dr. Grubbs on 05/31/2016. She denies any problems with the knee prior to the fall. ROS Const All systems reviewed are unremarkable except as noted in H and other (A O x 3, no apparent distress. No recent illness.) ENT Denies dizziness Card Denies chest pain, Denies dyspnea and Denies edema Resp Denies cough, Denies dyspnea and Reports other (No recent URI) GI Reports system reviewed and no additional complaints, except as documented, Denies nausea and Denies vomiting Musc Reports as per HPI, Reports arthralgias and Reports joint swelling (improved) Neuro No dizziness and Yes other Psych Reports system reviewed and no a (more content not included)... [facility] Knee 4 or More Viewson 06-10 Knee 4 or More Views [facility] Imaging Services [address] [place] [address] Knee 4 or More Views MR#: [id number] Acct: [id number] Name: LISBETH VALDEZ Rep #: [id number] : 1970 F 54 From: Demario Soriano MD PCP: JORGE Lockwood Status: DEP AMB Study: Knee 4 or More Views Date of Exam: 06/10/25 Exam# [id number] Ordering Dr: Mendy Alexandre PATIENT CARE COORDINATOR-Eddy PROCEDURE: KNEE 4 OR MORE VIEWS 06/10/2025 REASON FOR EXAM: KNEE PAIN THAT RUNS DOWN LEG CAUSING KNEE TO GIVE OUT TECHNIQUE: Procedure Code: RADKN Modality: DX Procedure: KNEE 4 OR MORE VIEWS Laterality: Left COMPARISON: None FINDINGS: There is no evidence of fracture or dislocation. There is no arthritis of the patellofemoral joint. There is no arthritis of the medial joint space compartment of the knee. There is no arthritis of the lateral joint space compartment of the knee. There is no knee joint effusion. The periarticular soft tissues are normal. RAD/Knee 4 or More Views IMPRESSION: Normal left knee. Reading Location: [id number] CC: JORGE Pugh; JORGE Alexandre Hydraulic Design Engineer: Signed [facility] Orthopedic Visit Reporton Orthopedic Visit Report [facility] [address] [place] [address] OFFICE VISIT Date of Service: 06/10/25 MR#: [id number] Acct: [id number] Name: LISBETH VALDEZ Rep #: [id number] : 1970 Provider: JORGE helm Age/Sex: 54/F Location: [facility] Status: Signed Intake Vital Signs 06/02/25 13:41 06/10/25 10:31 Height 5 ft 3 in 5 ft 3 in Weight: 174 lb 3 oz BMI 30.8 Intake Visit Reasons: LEFT KNEE Chief Complaint: Left Knee Pain Accompanied by: Self Is patient in pain?: Yes Pain scale (1-10): 8 Allergies egg Allergy (Mild, Verified 06/10/25 10:31) Unknown gluten Allergy (Verified 06/10/25 10:31) Hives lactose Allergy (Verified 06/10/25 10:31) Nausea/Vom/Diarrhea Medications ???Medication ???Instructions ???Recorded ???Confirmed ???Type metoprolol succinate 25 mg 25 mg PO DAILY #90 tabs 11/17/19 1 Rx tablet,extended release 24 hr dapagliflozin propanediol 10 mg 10 mg PO DAILY 06/02/25 06/10/25 H istory tablet (Farxiga) diltiazem HCl 180 mg 180 mg PO DAILY 06/02/25 06/10/25 History capsule,extended release 24 hr fexofenadine 60 mg tablet (Suzanne 60 mg PO BID 06/02/25 06/10/25 H istory Allergy) isosorbide mononitrate 30 mg 30 mg PO DAILY 06/02/25 06/10/25 H istory tablet,extended release 24 hr magnesium oxide 400 mg (241.3 mg 400 mg PO DAILY 06/02/25 06/10/25 History magnesium) tablet metoprolol tartrate 25 mg tablet 25 mg PO BID PRN PRN palpitations 06/02/25 06/10/25 History pantoprazole 20 mg tablet,delayed 20 mg PO DAILY 06/02/25 06/10/25 History release potassium chloride 20 mEq 20 meq PO DAILY 06/02/25 06/10/25 History tablet,extended release venlafaxine 75 mg capsule,extended 75 mg PO DAILY 06/02/25 06/10/25 History release 24 hr methylprednisolone 4 mg tablets in See Rx Instructions PO PER PKG D IR 06/10/25 06/10/25 Rx a dose pack (Medrol (David)) #21 tabs PFSH Medical History Diarrhea Sleep apnea Arthritis History of back problems Claudication Nonrheumatic mitral valve prolapse Paroxysmal supraventricular tachycardia Nonsustained ventricular tachycardia Obesity Nicotine abuse Anxiety and depression Osteoarthritis Lumbar spondylosis Surgical History H/O right heart catheterization History of laparoscopic cholecystectomy History of left heart catheterization History of tubal ligation H/O arthroscopy of left knee History of History of hysterectomy History of rhinoplasty Family History Father Hypertension Cancer leukemia Mother CAD (coronary artery disease) Heart disease Brain aneurysm Social History household members: significant other Smoking Status: Former smoker quit date: 07/01/18 Tobacco: How many years used: 30 how long ago did patient quit smokin, 1ppd second hand exposure: Yes alcohol intake: current substance use type: does not use caffeine: Yes Type: coffee Number of servings: 2 HPI LEFT KNEE Details: This documentation accurately reflects the service provided and the decisions made by me, JORGE Walker 06/10/25 1027. Part of today???s visit was documented by Pushpa Jackman ATC, acting as scribe. LISBETH VALDEZ is a 54 year old F here today for left knee pain. Patient rates her pain a 8/10 today and has an antalgic gait. Patient states she fell on June 02, 2025 and was seen in [facility] ER. She is unsure if she fell onto the knee. She states she was stepping backwards and fell out of the back of a box truck. She describes the pain over the anterior and posterior lateral aspect of the knee and pain that is radiating down into the lower leg. She notes the knee has been giving out often. She denies any mechanical symptoms in the knee that she has noticed. The knee has been swelling up on her at times. She had a left knee mfc chondral defect, synovitis plica with Dr. Grubbs on 05/31/2016. She denies any problems with the knee prior to the fall. She has been taking Tylenol for the pain. Sx aggravated Worse with walking and steps, rolling over during the night. Several episodes give way daily- has been able to catch self. OTC short hinged knee brace with minimal support ROS Const All systems reviewed are unremarkable except as noted in H and other (A O x 3, no apparent distress. No recent illness.) ENT Denies dizziness Card Denies chest pain, Denies dyspnea and Denies edema Resp Denies cough, Denies dyspnea and Reports other (No recent URI) GI Reports system reviewed and no additional complaints, except as documented, Denies nausea and D (more content not included)... [facility] Emergency Department Summary on 06-02-2025 Emergency Department Summary [facility] Medical Records Department [address] [place] [address] Emergency Department Summary 06/02/25 MR#: [id number] Acct: [id number] Name: LISBETH VALDEZ Rep #: [id number] : 1970 54 From: Baltazar Jiang MD PCP: JORGE Lockwood Status:REG ER Location: ED HPI HPI - Fall History of Present Illness Chief Complaint: Fall Narrative Narrative: 54-year-old female past medical history of palpitations and tachycardia presents after fall off the back of a box truck. She states that she did not have the left portion up, turned around, and fell. This happened at 11:00, approximately 4 hours ago. She denies hitting her head or loss of consciousness. Took a while for her to get up and stand because she was having left ankle and left lower leg pain. She states she has left ankle pain whenever she weightbears and walks. She also has pain in the cleft of her buttocks, right near her tailbone. She denies hitting her head, loss of consciousness, or other injuries. She states her main concern is her left lower leg and her tailbone. She has not had a bowel movement since her injury. She took 2 Tylenol arthritis this morning which she usually takes. While she states her muscles and neck might be getting stiff and sore, she denies any pain with movement of her neck, no other injuries. She states she does not take any blood thinners. [facility] Medical History Diarrhea Sleep apnea Arthritis History of back problems Claudication Nonrheumatic mitral valve prolapse Paroxysmal supraventricular tachycardia Nonsustained ventricular tachycardia Obesity Nicotine abuse Anxiety and depression Osteoarthritis Lumbar spondylosis Home Medications ???Medication ???Instructions ???Recorded ???Last Taken ???Type meloxicam 15 mg tablet 15 mg PO DAILY 07/12/18 Unknown Hi story naproxen 500 mg tablet 500 mg PO BID PRN #20 tabs 9 Unknown Rx metoprolol succinate 25 mg 25 mg PO DAILY #90 tabs 11/17/19 U nknown Rx tablet,extended release 24 hr dapagliflozin propanediol 10 mg 10 mg PO DAILY 06/02/25 Unknown Hi story tablet (Farxiga) diltiazem HCl 180 mg 180 mg PO DAILY 06/02/25 Unknown H istory capsule,extended release 24 hr fexofenadine 60 mg tablet (Suzanne 60 mg PO BID 06/02/25 Unknown Hi story Allergy) isosorbide mononitrate 30 mg 30 mg PO DAILY 06/02/25 Unknown Hi story tablet,extended release 24 hr magnesium oxide 400 mg (241.3 mg 400 mg PO DAILY 06/02/25 Unknown H istory magnesium) tablet metoprolol tartrate 25 mg tablet 25 mg PO BID PRN PRN palpitations 06/02/25 Unknown History pantoprazole 20 mg tablet,delayed 20 mg PO DAILY 06/02/25 Unknown H istory release potassium chloride 20 mEq 20 meq PO DAILY 06/02/25 Unknown H istory tablet,extended release trazodone 50 mg tablet 50 mg PO QHS 06/02/25 Unknown Hist ory venlafaxine 75 mg capsule,extended 75 mg PO DAILY 06/02/25 Unknown History release 24 hr Allergy/AdvReac Type Severity Reaction Status Date / Time egg Allergy Mild Unknown Verified 06/02/25 13:41 gluten Allergy Hives Verified 06/02/25 13:41 lactose Allergy Nausea/Vom/ Verified 06/02/25 13:41 Diarrhea Family History Father Hypertension Cancer leukemia Mother CAD (coronary artery disease) Heart disease Brain aneurysm Surgical History H/O right heart catheterization History of laparoscopic cholecystectomy History of left heart catheterization History of tubal ligation H/O arthroscopy of left knee History of History of hysterectomy History of rhinoplasty Social History household members: significant other Smoking Status: Former smoker quit date: 07/01/18 Tobacco: How many years used: 30 how long ago did patient quit smokin, 1ppd second hand exposure: Yes alcohol intake: current substance use type: does not use caffeine: Yes Type: coffee Number of servings: 2 ROS ROS ED ROS Narrative Review of systems positive for left lower leg pain left ankle pain. Positive sacrum/coccyx pain. Worse with movement and weightbearing. No hitting of head, no loss of consciousness, no pain with range of motion of neck. No nausea or vomiting, no other symptoms. EXAM Physical Exam Narrative Exam Narrative: GCS 15. ABCs intact. HEENT examination grossly unremarkable. PERRL, EOMI. Neck soft and supple without meningismus, no vertebral point tenderness or bony step-off. Full range of motion without pain. Cardiovascular examination regular rate and rhythm. Lungs are clear to auscultation bilaterally. The abdomen is soft and nontender with posi (more content not included)... [facility] Femur Min 2 Viewson 06-02-20 Femur Min 2 Views [facility] Imaging Services [address] [place] [address] Femur Min 2 Views MR#: [id number] Acct: [id number] Name: LISBETH VALDEZ Rep #: [id number] : 1970 F 54 From: Ronny Padgett MD PCP: Dr. Ambrose Olivares DO Status: PRE ER Study: Femur Min 2 Views Date of Exam: 06/02/25 Exam# [id number] Ordering Dr: Baltazar Jiang MD PROCEDURE: FEMUR MIN 2 VIEWS 06/02/2025 REASON FOR EXAM: TRAUMA TECHNIQUE: Procedure Code: RADFEM Modality: DX Procedure: FEMUR MIN 2 VIEWS Laterality: Left COMPARISON: None FINDINGS: Bones: No fracture Joints: Normal alignment at the hip and knee. Soft tissues: Soft tissues are unremarkable. RAD/Femur Min 2 Views IMPRESSION: No acute abnormality Reading Location: [facility] CC: Dr. Baltazar Jiang MD; Dr. Ambrose Olivares DO Hydraulic Design Engineer: Signed [facility] Sacrum-Coccyx min 2 Viewson 06-02-2025 Sacrum-Coccyx min 2 Views [facility] Imaging Services [address] [place], [place] [id number] Sacrum-Coccyx min 2 Views MR#: [id number] Acct: [id number] Name: LISBETH VALDEZ Rep #: [id number] : 1970 F 54 From: Ronny Padgett MD PCP: Dr. Ambrose Olivares DO Status: PRE ER Study: Sacrum-Coccyx min 2 Views Date of Exam: Exam# [id number] Ordering Dr: Baltzaar Jiang MD PROCEDURE: SACRUM-COCCYX MIN 2 VIEWS 06/02/2025 REASON FOR EXAM: TRAUMA TECHNIQUE: Procedure Code: RADSAC Modality: DX Procedure: SACRUM-COCCYX MIN 2 VIEWS COMPARISON: None FINDINGS: Bones: No fracture. Joints: Unremarkable Other: No foreign body RAD/Sacrum-Coccyx min 2 Views IMPRESSION: No fracture. Reading Location: [facility] CC: Dr. Baltazar Jiang MD; Dr. Ambrose Olivares DO Hydraulic Design Engineer: Signed [facility] Tibia Fibula 2 Viewson 06-02 Tibia Fibula 2 Views [facility] Imaging Services [address] [place] [address] Tibia Fibula 2 Views MR#: [id number] Acct: [id number] Name: LISBETH VALDEZ Rep #: [id number] : 1970 F 54 From: Ronny Padgett MD PCP: Dr. Ambrose Olivares DO Status: PRE ER Study: Tibia Fibula 2 Views Date of Exam: 06/02/25 Exam# [id number] Ordering Dr: Baltazar Jiang MD PROCEDURE: TIBIA FIBULA 2 VIEWS 06/02/2025 REASON FOR EXAM: TRAUMA TECHNIQUE: Procedure Code: RADTF Modality: DX Procedure: TIBIA FIBULA 2 VIEWS Laterality: Left COMPARISON: Femur x-ray of the same day FINDINGS: Bones: No fracture Joints: Normal alignment at the knee and ankle. Soft tissues: Soft tissues are unremarkable. RAD/Tibia Fibula 2 Views IMPRESSION: No acute abnormality Reading Location: [id number] CC: Dr. Baltazar Jiang MD; Dr. Ambrose Olivares DO Hydraulic Design Engineer: Signed [facility] .Auto Diffon 08-29-2024 Basophil, Absolute 0.1 10 3/mcL Normal 0.0-0.2 [facility] Comment on above: Performed By: #### C BC, PRO, BMP, GFR, ADIFF, ANEU #### [address] [address] Basophils/100 WBC (Bld) 0.7 % Normal 0.0-2.5 [facility] Comment on above: Performed By: #### C BC, PRO, BMP, GFR, ADIFF, ANEU #### [id number] [place], [place] [address] Eosinophil, Absolute 0.1 10 3/mcL Normal 0.0-0.7 [facility] Comment on above: Performed By: #### C BC, PRO, BMP, GFR, ADIFF, ANEU #### [id number] [place], [place] [address] Eosinophils/100 WBC (Bld) 1.7 % Normal 0.0-7.0 [facility] Comment on above: Performed By: #### C BC, PRO, BMP, GFR, ADIFF, ANEU #### [address] [address] Lymphocyte, Absolute 2.8 10 3/mcL Normal 0.9-4.3 [facility] Comment on above: Performed By: #### C BC, PRO, BMP, GFR, ADIFF, ANEU #### [address] [address] Lymphocytes/100 WBC (Bld) 35.4 % Normal 20.0-40.0 [facility] Comment on above: Performed By: #### C BC, PRO, BMP, GFR, ADIFF, ANEU #### [address] [address] Monocyte, Absolute 0.5 10 3/mcL Normal 0.1-1.4 [facility] Comment on above: Performed By: #### C BC, PRO, BMP, GFR, ADIFF, ANEU #### [address] [address] Monocytes/100 WBC (Bld) 6.0 % Normal 2.0-13.0 [facility] Comment on above: Performed By: #### C BC, PRO, BMP, GFR, ADIFF, ANEU #### [address] [address] Neutrophils/100 WBC (Bld) 56.2 % Normal 50.0-75.0 [facility] Comment on above: Performed By: #### C BC, PRO, BMP, GFR, ADIFF, ANEU #### [address] [address] .GFRon 08-29-2024 GFR 109 ml/min/1.73sqm Normal [facility] Comment on above: Result Comment: GFR Population mean for , Non- Americans Ages 20-29 = 116 mL/min/1.73 sq.m. Ages 30-39 = 107 mL/min/1.73 sq.m. Ages 40-49 = 99 mL/min/1.73 sq.m. Ages 50-59 = 93 mL/min/1.73 sq.m. Ages 60-69 = 85 mL/min/1.73 sq.m. Ages 70+ = 75 mL/min/1.73 sq.m. Chronic Kidney Disease: Less than 60 mL/min/1.73 square meters End Stage Renal Disease: Less than 15 mL/min/1.73 square meters Performed By: #### C BC, PRO, BMP, GFR, ADIFF, ANEU #### [address] [address] GFR Non- 90 ml/min/1.73sqm Normal [facility] Comment on above: Result Comment: GFR Population mean for , Non- Americans Ages 20-29 = 116 mL/min/1.73 sq.m. Ages 30-39 = 107 mL/min/1.73 sq.m. Ages 40-49 = 99 mL/min/1.73 sq.m. Ages 50-59 = 93 mL/min/1.73 sq.m. Ages 60-69 = 85 mL/min/1.73 sq.m. Ages 70+ = 75 mL/min/1.73 sq.m. Chronic Kidney Disease: Less than 60 mL/min/1.73 square meters End Stage Renal Disease: Less than 15 mL/min/1.73 square meters Performed By: #### C BC, PRO, BMP, GFR, ADIFF, ANEU #### [address] [address] .NEUABSon 08-29-2024 Neutrophil, Absolute 4.4 10 3/mcL Normal 2.3-8.1 [facility] Comment on above: Performed By: #### C BC, PRO, BMP, GFR, ADIFF, ANEU #### [address] [address] BMPon 08-29-2024 BUN/Creatinine Ratio 22 ratio Normal 03-29 [facility] Comment on above: Performed By: #### C BC, PRO, BMP, GFR, ADIFF, ANEU #### [address] [address] Calcium [Mass/Vol] 9.7 mg/dL Normal 8.4-10.2 [facility] Comment on above: Performed By: #### C BC, PRO, BMP, GFR, ADIFF, ANEU #### [address] [address] Chloride [Moles/Vol] 103 mmol/L Normal 98-107 [facility] Comment on above: Performed By: #### C BC, PRO, BMP, GFR, ADIFF, ANEU #### [place] [id number] CO2 [Moles/Vol] 33 mmol/L High 22-29 [facility] Comment on above: Performed By: #### C BC, PRO, BMP, GFR, ADIFF, ANEU #### [place] [address] Creatinine [Mass/Vol] 0.68 mg/dL Normal 0.55-1.02 [facility] Comment on above: Result Comment: Test ing performed on TURN8 Dimension EXL analyzer using a modified kinetic Abbey technique. Performed By: #### C BC, PRO, BMP, GFR, ADIFF, ANEU #### [place] [address] Electrolyte Balance 5.0 mEq/L Normal 4.0-15.0 [facility] Comment on above: Performed By: #### C BC, PRO, BMP, GFR, ADIFF, ANEU #### [address] [address] Glucose [Mass/Vol] 90 mg/dL Normal 70-105 [facility] Comment on above: Performed By: #### C BC, PRO, BMP, GFR, ADIFF, ANEU #### [place] [address] Potassium [Moles/Vol] 4.1 mmol/L Normal 3.5-5.1 [facility] Comment on above: Performed By: #### C BC, PRO, BMP, GFR, ADIFF, ANEU #### [place] [address] Sodium [Moles/Vol] 141 mmol/L Normal 136-145 [facility] Comment on above: Performed By: #### C BC, PRO, BMP, GFR, ADIFF, ANEU #### [place] [address] Urea nitrogen [Mass/Vol] 15 mg/dL Normal 7-18 [facility] Comment on above: Performed By: #### C BC, PRO, BMP, GFR, ADIFF, ANEU #### [place] [id number] CBCon 08-29-2024 Erythrocyte distribution width (RBC) [Ratio] 13.6 % Normal 11.5-15.5 [facility] Comment on above: Performed By: #### C BC, PRO, BMP, GFR, ADIFF, ANEU #### [place] [address] Hematocrit (Bld) [Volume fraction] 43.0 % Normal 34.0-46.0 [facility] Comment on above: Performed By: #### C BC, PRO, BMP, GFR, ADIFF, ANEU #### [place] [address] Hgb 14.7 G/dL Normal 12.0-16.0 [facility] Comment on above: Performed By: #### C BC, PRO, BMP, GFR, ADIFF, ANEU #### [place] [id number] MCH (RBC) [Entitic mass] 32.7 pg Normal 27.0-33.0 [facility] Comment on above: Performed By: #### C BC, PRO, BMP, GFR, ADIFF, ANEU #### [place] [address] MCHC 34.3 G/dL Normal 32.0-36.0 [facility] Comment on above: Performed By: #### C BC, PRO, BMP, GFR, ADIFF, ANEU #### [place] [address] MCV (RBC) [Entitic vol] 95.5 fL Normal 80.0-99.0 [facility] Comment on above: Performed By: #### C BC, PRO, BMP, GFR, ADIFF, ANEU #### [address] [address] Platelet 387 10 3/mcL Normal 150-450 [facility] Comment on above: Performed By: #### C BC, PRO, BMP, GFR, ADIFF, ANEU #### [address] [address] Platelet mean volume (Bld) [Entitic vol] 6.8 fL Normal 6.6-10.5 [facility] Comment on above: Performed By: #### C BC, PRO, BMP, GFR, ADIFF, ANEU #### [address] [address] RBC 4.50 10 6/mcL Normal 4.10-5.30 [facility] Comment on above: Performed By: #### C BC, PRO, BMP, GFR, ADIFF, ANEU #### [address] [address] WBC 7.8 10 3/mcL Normal 4.5-10.8 [facility] Comment on above: Performed By: #### C BC, PRO, BMP, GFR, ADIFF, ANEU #### [address] [address] LABORATORYOrdered By: SYSTEM SYSTEM on 08-29-2024 Basophils (Bld) [#/Vol] 0.1 103/mcL Normal 0.0 - 0.2 10^3/mcL AO Workflow SS Basophils/100 WBC (Bld) 0.7 % Normal 0.0 - 2.5 % AO Workflow SS Calcium [Mass/Vol] 9.7 mg/dL Normal 8.4 - 10. 2 mg/dL AO ADM SS Chloride [Moles/Vol] 103 mmol/L Normal 98 - 10 7 mmol/L AO ADM SS CO2 [Moles/Vol] 33 mmol/L High 22 - 29 mmol/L AO ADM SS Creatinine [Mass/Vol] 0.68 mg/dL Normal 0.55 - 1.02 mg/dL AO ADM SS Comment on above: Interpretive Data: T esting performed on Siemens Dimension EXL analyzer using a modified kinetic Abbey technique. Electrolyte Balance 5.0 mEq/L Normal 4.0 - 15 .0 mEq/L AO ADM SS Eosinophil, Absolute 0.1 103/mcL Normal 0.0 - 0 .7 10^3/mcL AO Workflow SS Eosinophils/100 WBC (Bld) 1.7 % Normal 0.0 - 7.0 % AO Workflow SS Erythrocyte distribution width (RBC) [Ratio] 13.6 % Normal 11.5 - 15.5 % AO Workflow SS GFR/1.73 sq M.predicted among blacks MDRD (S/P/Bld) [Vol rate/Area] 109 ml/min/1.73sqm Invalid Interpretation Code AO Chemistry S Comment on above: Interpretive Data: GFR Population mean for , Non- Americans Ages 20-29 = 116 mL/min/1.73 sq.m. Ages 30-39 = 107 mL/min/1.73 sq.m. Ages 40-49 = 99 mL/min/1.73 sq.m. Ages 50-59 = 93 mL/min/1.73 sq.m. Ages 60-69 = 85 mL/min/1.73 sq.m. Ages 70+ = 75 mL/min/1.73 sq.m. Chronic Kidney Disease: Less than 60 mL/min/1.73 square meters End Stage Renal Disease: Less than 15 mL/min/1.73 square meters GFR/1.73 sq M.predicted among non-blacks MDRD (S/P/Bld) [Vol rate/Area] 90 ml/min/1.73sqm Invalid Interpretation Code AO Chemistry S Comment on above: Interpretive Data: GFR Population mean for , Non- Americans Ages 20-29 = 116 mL/min/1.73 sq.m. Ages 30-39 = 107 mL/min/1.73 sq.m. Ages 40-49 = 99 mL/min/1.73 sq.m. Ages 50-59 = 93 mL/min/1.73 sq.m. Ages 60-69 = 85 mL/min/1.73 sq.m. Ages 70+ = 75 mL/min/1.73 sq.m. Chronic Kidney Disease: Less than 60 mL/min/1.73 square meters End Stage Renal Disease: Less than 15 mL/min/1.73 square meters Glucose [Mass/Vol] 90 mg/dL Normal 70 - 105 mg/dL AO ADM SS Hematocrit (Bld) [Volume fraction] 43.0 % Normal 34.0 - 46.0 % AO Workflow SS Hemoglobin (Bld) [Mass/Vol] 14.7 G/dL Normal 12.0 - 16.0 G/dL AO Workflow SS INR Coag (PPP) [Relative time] 0.9 {INR} Invalid Interpretation Code AO [facility] SS Comment on above: Interpretive Data: Silvino nance [employer] (CHEST, 1991, 102:[id number]) recommended therapeutic range for oral anticoagulant therapy is: LOW RISK: Prophylaxis of venous thrombosis INR: 2.0-3.0 Treatment of pulmonary embolism 2.0-3.0 Prevention of systemic embolism 2.0-3.0 HIGH RISK: Mechanical prosthetic valves 2.5-3.5 Lymphocytes (Bld) [#/Vol] 2.8 103/mcL Normal 0.9 - 4.3 10^3/mcL AO Workflow SS Lymphocytes/100 WBC (Bld) 35.4 % Normal 20.0 - 40.0 % AO Workflow SS MCH (RBC) [Entitic mass] 32.7 pg Normal 27.0 - 33.0 pg AO Workflow SS MCHC 34.3 G/dL Normal 32.0 - 36.0 G/dL AO Workflow SS MCV (RBC) [Entitic vol] 95.5 fL Normal 80.0 - 99.0 fL AO Workflow SS Monocytes (Bld) [#/Vol] 0.5 103/mcL Normal 0.1 - 1.4 10^3/mcL AO Workflow SS Monocytes/100 WBC (Bld) 6.0 % Normal 2.0 - 13.0 % AO Workflow SS Neutrophils (Bld) [#/Vol] 4.4 103/mcL Normal 2.3 - 8.1 10^3/mcL AO Workflow SS Neutrophils/100 WBC (Bld) 56.2 % Normal 50.0 - 75.0 % AO Workflow SS Platelet mean volume (Bld) [Entitic vol] 6.8 fL Normal 6.6 - 10.5 fL AO Workflow SS Platelets (Bld) [#/Vol] 387 103/mcL Normal 150 - 450 10^3/mcL AO Workflow SS Potassium [Moles/Vol] 4.1 mmol/L Normal 3.5 - 5.1 mmol/L AO ADM SS PT Coag (PPP) [Time] 10.1 s Normal 9.0 - 1 4.4 seconds AO [facility] SS RBC (Bld) [#/Vol] 4.50 106/mcL Normal 4.10 - 5.3 0 10^6/mcL AO Workflow SS Sodium [Moles/Vol] 141 mmol/L Normal 136 - 145 mmol/L AO ADM SS Urea nitrogen [Mass/Vol] 15 mg/dL Normal 7 - 18 mg/dL AO ADM SS Urea nitrogen/Creatinine [Mass ratio] 22 ratio Normal 7 - 27 ratio AO ADM SS WBC (Bld) [#/Vol] 7.8 103/mcL Normal 4.5 - 10.8 10^3/mcL AO Workflow SS PROon 08-29-2024 PT Coag (PPP) [Time] 10.1 s Normal 9.0-14.4 [facility] Comment on above: Performed By: #### C BC, PRO, BMP, GFR, ADIFF, ANEU #### [address] [address] PT International Ratio 0.9 Normal [facility] Comment on above: Result Comment: [employer] (CHEST, 1992, 102:[id number]) recommended therapeutic range for oral anticoagulant therapy is: LOW RISK: Prophylaxis of venous thrombosis INR: 2.0-3.0 Treatment of pulmonary embolism 2.0-3.0 Prevention of systemic embolism 2.0-3.0 HIGH RISK: Mechanical prosthetic valves 2.5-3.5 Performed By: #### C BC, PRO, BMP, GFR, ADIFF, ANEU #### [address] [address] .GFRon 08-19-2024 GFR 104 ml/min/1.73sqm Normal [facility] Comment on above: Result Comment: GFR Population mean for , Non- Americans Ages 20-29 = 116 mL/min/1.73 sq.m. Ages 30-39 = 107 mL/min/1.73 sq.m. Ages 40-49 = 99 mL/min/1.73 sq.m. Ages 50-59 = 93 mL/min/1.73 sq.m. Ages 60-69 = 85 mL/min/1.73 sq.m. Ages 70+ = 75 mL/min/1.73 sq.m. Chronic Kidney Disease: Less than 60 mL/min/1.73 square meters End Stage Renal Disease: Less than 15 mL/min/1.73 square meters Performed By: #### C BC, PRO, BMP, GFR, ADIFF, ANEU #### [address] [address] GFR Non- 86 ml/min/1.73sqm Normal [facility] Comment on above: Result Comment: GFR Population mean for , Non- Americans Ages 20-29 = 116 mL/min/1.73 sq.m. Ages 30-39 = 107 mL/min/1.73 sq.m. Ages 40-49 = 99 mL/min/1.73 sq.m. Ages 50-59 = 93 mL/min/1.73 sq.m. Ages 60-69 = 85 mL/min/1.73 sq.m. Ages 70+ = 75 mL/min/1.73 sq.m. Chronic Kidney Disease: Less than 60 mL/min/1.73 square meters End Stage Renal Disease: Less than 15 mL/min/1.73 square meters Performed By: #### C BC, PRO, BMP, GFR, ADIFF, ANEU #### [address] [address] [facility] 08-19-2024 Albumin Level 3.7 G/dL Normal 3.5-5.0 [facility] Comment on above: Performed By: #### T IKE #### [address] [address] Albumin/Globulin [Mass ratio] 1.3 {ratio} Normal 1.1-2.5 [facility] Comment on above: Performed By: #### T IKE #### [address] [address] ALP [Catalytic activity/Vol] 94 U/L Normal 40-135 [facility] Comment on above: Performed By: #### T IKE #### [address] [address] ALT [Catalytic activity/Vol] 19 U/L Normal 14-59 [facility] Comment on above: Performed By: #### T IKE #### [address] [address] AST [Catalytic activity/Vol] 10 U/L Normal 10-40 [facility] Comment on above: Performed By: #### T IKE #### [address] [address] Bili Total 0.4 mg/dL Normal 0.2-1.0 [facility] Comment on above: Result Comment: Use of this assay is not recommended for patients undergoing treatment with eltrombopag due to the potential for falsely elevated results. Performed By: #### T IKE #### [address] [address] BUN/Creatinine Ratio 18 ratio Normal 7-27 [facility] Comment on above: Performed By: #### T IKE #### [address] [address] Calcium [Mass/Vol] 9.1 mg/dL Normal 8.4-10.2 [facility] Comment on above: Performed By: #### T IKE #### [address] [address] Chloride [Moles/Vol] 108 mmol/L High 98-107 [facility] Comment on above: Performed By: #### T IKE #### [address] [address] CO2 [Moles/Vol] 28 mmol/L Normal 22-29 [facility] Comment on above: Performed By: #### T IKE #### [address] [address] Creatinine [Mass/Vol] 0.71 mg/dL Normal 0.55-1.02 [facility] Comment on above: Result Comment: Test ing performed on Siemens Dimension EXL analyzer using a modified kinetic Abbey technique. Performed By: #### T IKE #### [address] [address] Electrolyte Balance 11.0 mEq/L Normal 4.0-15.0 [facility] Comment on above: Performed By: #### T IKE #### [address] [address] Globulin 2.8 G/dL Normal [facility] Comment on above: Performed By: #### T IKE #### [address] [address] Glucose [Mass/Vol] 69 mg/dL Low 70-105 [facility] Comment on above: Performed By: #### T IKE #### [address] [address] Potassium [Moles/Vol] 4.4 mmol/L Normal 3.5-5.1 [facility] Comment on above: Performed By: #### T IKE #### [address] [address] Sodium [Moles/Vol] 147 mmol/L High 136-145 [facility] Comment on above: Performed By: #### T IKE #### [address] [address] Total Protein 6.5 G/dL Normal 6.4-8.2 [facility] Comment on above: Performed By: #### T IKE #### [address] [address] Urea nitrogen [Mass/Vol] 13 mg/dL Normal 7-18 [facility] Comment on above: Performed By: #### T IKE #### [address] [address] CORTon 08-19-2024 Cortisol Level 10.8 mcg/dL Normal [facility] Comment on above: Result Comment: Jermaine isol AM Reference Range 6.5-26.0 mcg/dL Cortisol PM Reference Range 3.5-15.0 mcg/dL Performed By: #### C BC, PRO, BMP, GFR, ADIFF, ANEU #### [address] [place], [place] [address] LABORATORYOrdered By: SYSTEM SYSTEM on 08-19-2024 Albumin BCP dye [Mass/Vol] 3.7 G/dL Normal 3.5 - 5.0 G/dL AO ADM SS Albumin/Globulin [Mass ratio] 1.3 {ratio} Normal 1.1 - 2.5 ratio AO ADM SS ALP [Catalytic activity/Vol] 94 U/L Normal 40 - 135 U/L AO ADM SS ALT With P-5'-P [Catalytic activity/Vol] 19 U/L Normal 14 - 59 U/L AO ADM SS AST With P-5'-P [Catalytic activity/Vol] 10 U/L Normal 10 - 40 U/L AO ADM SS Bilirubin [Mass/Vol] 0.4 mg/dL Normal 0.2 - 1 .0 mg/dL AO ADM SS Comment on above: Interpretive Data: U se of this assay is not recommended for patients undergoing treatment with eltrombopag due to the potential for falsely elevated results. Calcium [Mass/Vol] 9.1 mg/dL Normal 8.4 - 10. 2 mg/dL AO ADM SS Chloride [Moles/Vol] 108 mmol/L High 98 - 10 7 mmol/L AO ADM SS CO2 [Moles/Vol] 28 mmol/L Normal 22 - 29 mmol/L AO ADM SS Cortisol [Mass/Vol] 10.8 ug/dL Invalid Interpretation Code AH ADM SS Comment on above: Interpretive Data: C ortisol AM Reference Range 6.5-26.0 mcg/dL Cortisol PM Reference Range 3.5-15.0 mcg/dL Creatinine [Mass/Vol] 0.71 mg/dL Normal 0.55 - 1.02 mg/dL AO ADM SS Comment on above: Interpretive Data: T esting performed on Siemens Dimension EXL analyzer using a modified kinetic Abbey technique. Electrolyte Balance 11.0 mEq/L Normal 4.0 - 15 .0 mEq/L AO ADM SS GFR/1.73 sq M.predicted among blacks MDRD (S/P/Bld) [Vol rate/Area] 104 ml/min/1.73sqm Invalid Interpretation Code AO Chemistry S Comment on above: Interpretive Data: GFR Population mean for , Non- Americans Ages 20-29 = 116 mL/min/1.73 sq.m. Ages 30-39 = 107 mL/min/1.73 sq.m. Ages 40-49 = 99 mL/min/1.73 sq.m. Ages 50-59 = 93 mL/min/1.73 sq.m. Ages 60-69 = 85 mL/min/1.73 sq.m. Ages 70+ = 75 mL/min/1.73 sq.m. Chronic Kidney Disease: Less than 60 mL/min/1.73 square meters End Stage Renal Disease: Less than 15 mL/min/1.73 square meters GFR/1.73 sq M.predicted among non-blacks MDRD (S/P/Bld) [Vol rate/Area] 86 ml/min/1.73sqm Invalid Interpretation Code AO Chemistry S Comment on above: Interpretive Data: GFR Population mean for , Non- Americans Ages 20-29 = 116 mL/min/1.73 sq.m. Ages 30-39 = 107 mL/min/1.73 sq.m. Ages 40-49 = 99 mL/min/1.73 sq.m. Ages 50-59 = 93 mL/min/1.73 sq.m. Ages 60-69 = 85 mL/min/1.73 sq.m. Ages 70+ = 75 mL/min/1.73 sq.m. Chronic Kidney Disease: Less than 60 mL/min/1.73 square meters End Stage Renal Disease: Less than 15 mL/min/1.73 square meters Globulin 2.8 G/dL Invalid Interpretation Code AO ADM SS Glucose [Mass/Vol] 69 mg/dL Low 70 - 105 mg/dL AO ADM SS Magnesium [Mass/Vol] 2.1 mg/dL Normal 1.8 - 2 .4 mg/dL AO ADM SS Natriuretic peptide.B prohormone N-Terminal [Mass/Vol] 215 pg/mL High 0 - 125 pg/mL AO ADM SS Comment on above: Interpretive Data: N T-proBNP results of less than 300 pg/mL effectively rules out acute congestive heart failure with 99% negative predictive value. Potassium [Moles/Vol] 4.4 mmol/L Normal 3.5 - 5.1 mmol/L AO ADM SS Protein [Mass/Vol] 6.5 G/dL Normal 6.4 - 8.2 G/dL AO ADM SS Sodium [Moles/Vol] 147 mmol/L High 136 - 145 mmol/L AO ADM SS Urea nitrogen [Mass/Vol] 13 mg/dL Normal 7 - 18 mg/dL AO ADM SS Urea nitrogen/Creatinine [Mass ratio] 18 ratio Normal 7 - 27 ratio AO ADM SS LABORATORYOrdered By: Connie Richardson on 08-19-2024 Cholesterol [Mass/Vol] 220 mg/dL High 0 - 200 mg/dL AO ADM SS Comment on above: Interpretive Data: C holesterol Reference Interval: Less than 200 Desirable 200-239 Borderline high risk 240 and above High risk Cholesterol in HDL [Mass/Vol] 59 mg/dL Normal 40 - 60 mg/dL AO ADM SS Cholesterol in LDL [Mass/Vol] 139 mg/dL High 0 - 130 mg/dL AO ADM SS Triglyceride [Mass/Vol] 108 mg/dL Normal 0 - 150 mg/dL AO ADM SS Comment on above: Interpretive Data: T riglyceride Reference Interval: Less than 150 Normal 150-199 Borderline high risk 200-499 High risk 500 or higher Very high risk LIPIDon 08-19-2024 Cholesterol [Mass/Vol] 220 mg/dL High 0-200 [facility] Comment on above: Result Comment: Chol esterol Reference Interval: Less than 200 Desirable 200-239 Borderline high risk 240 and above High risk Performed By: #### C BC, PRO, BMP, GFR, ADIFF, ANEU #### [address] [address] Cholesterol in HDL [Mass/Vol] 59 mg/dL Normal 40-60 [facility] Comment on above: Performed By: #### C BC, PRO, BMP, GFR, ADIFF, ANEU #### [address] [address] Cholesterol in LDL [Mass/Vol] 139 mg/dL High 0-130 [facility] Comment on above: Performed By: #### C BC, PRO, BMP, GFR, ADIFF, ANEU #### [address] [address] Triglyceride [Mass/Vol] 108 mg/dL Normal 0-150 [facility] Comment on above: Result Comment: Trig lyceride Reference Interval: Less than 150 Normal 150-199 Borderline high risk 200-499 High risk 500 or higher Very high risk Performed By: #### C BC, PRO, BMP, GFR, ADIFF, ANEU #### [address] [address] MGon 08-19-2024 Magnesium [Mass/Vol] 2.1 mg/dL Normal 1.8-2.4 [facility] Comment on above: Performed By: #### T ROP #### [address] [address] PBNPon 08-19-2024 Natriuretic peptide B (Bld) [Mass/Vol] 215 pg/mL High 0-125 [facility] Comment on above: Result Comment: NT-p roBNP results of less than 300 pg/mL effectively rules out acute congestive heart failure with 99% negative predictive value. Performed By: #### C BC, PRO, BMP, GFR, ADIFF, ANEU #### [address] [address] .Auto Diffon 08-18-2024 Basophil, Absolute 0.1 10 3/mcL Normal 0.0-0.2 [facility] Comment on above: Performed By: #### G FR, TROPHS, CBC, MG, MDW, BMP, PBNP, ADIFF, ANEU, DIMER #### [address] [address] Basophils/100 WBC (Bld) 1.2 % Normal 0.0-2.5 [facility] Comment on above: Performed By: #### G FR, TROPHS, CBC, MG, MDW, BMP, PBNP, ADIFF, ANEU, DIMER #### [address] [address] Eosinophil, Absolute 0.2 10 3/mcL Normal 0.0-0.7 [facility] Comment on above: Performed By: #### G FR, TROPHS, CBC, MG, MDW, BMP, PBNP, ADIFF, ANEU, DIMER #### [address] [address] Eosinophils/100 WBC (Bld) 1.9 % Normal 0.0-7.0 [facility] Comment on above: Performed By: #### G FR, TROPHS, CBC, MG, MDW, BMP, PBNP, ADIFF, ANEU, DIMER #### [address] [address] Lymphocyte, Absolute 2.7 10 3/mcL Normal 0.9-4.3 [facility] Comment on above: Performed By: #### G FR, TROPHS, CBC, MG, MDW, BMP, PBNP, ADIFF, ANEU, DIMER #### [address] [address] Lymphocytes/100 WBC (Bld) 32.0 % Normal 20.0-40.0 [facility] Comment on above: Performed By: #### G FR, TROPHS, CBC, MG, MDW, BMP, PBNP, ADIFF, ANEU, DIMER #### [address] [address] Monocyte, Absolute 0.4 10 3/mcL Normal 0.1-1.4 [facility] Comment on above: Performed By: #### G FR, TROPHS, CBC, MG, MDW, BMP, PBNP, ADIFF, ANEU, DIMER #### [address] [address] Monocytes/100 WBC (Bld) 5.0 % Normal 2.0-13.0 [facility] Comment on above: Performed By: #### G FR, TROPHS, CBC, MG, MDW, BMP, PBNP, ADIFF, ANEU, DIMER #### [address] [address] Neutrophils/100 WBC (Bld) 59.9 % Normal 50.0-75.0 [facility] Comment on above: Performed By: #### G FR, TROPHS, CBC, MG, MDW, BMP, PBNP, ADIFF, ANEU, DIMER #### [address] [address] .GFRon 08-18-2024 GFR Non- 81 ml/min/1.73sqm Normal [facility] Comment on above: Result Comment: GFR Population mean for , Non- Americans Ages 20-29 = 116 mL/min/1.73 sq.m. Ages 30-39 = 107 mL/min/1.73 sq.m. Ages 40-49 = 99 mL/min/1.73 sq.m. Ages 50-59 = 93 mL/min/1.73 sq.m. Ages 60-69 = 85 mL/min/1.73 sq.m. Ages 70+ = 75 mL/min/1.73 sq.m. Chronic Kidney Disease: Less than 60 mL/min/1.73 square meters End Stage Renal Disease: Less than 15 mL/min/1.73 square meters Performed By: #### T IKE #### [address] [address] GFR 98 ml/min/1.73sqm Normal [facility] Comment on above: Result Comment: GFR Population mean for , Non- Americans Ages 20-29 = 116 mL/min/1.73 sq.m. Ages 30-39 = 107 mL/min/1.73 sq.m. Ages 40-49 = 99 mL/min/1.73 sq.m. Ages 50-59 = 93 mL/min/1.73 sq.m. Ages 60-69 = 85 mL/min/1.73 sq.m. Ages 70+ = 75 mL/min/1.73 sq.m. Chronic Kidney Disease: Less than 60 mL/min/1.73 square meters End Stage Renal Disease: Less than 15 mL/min/1.73 square meters Performed By: #### T IKE #### [address] [address] .MDWon 08-18-2024 Monocyte Distribution Width 17.15 Normal 0.00-20.00 [facility] Comment on above: Result Comment: For ED adult patients suspected of sepsis, MDW<=20.0 does not rule out sepsis or risk of sepsis Performed By: #### T IKE #### [address] [address] .NEUABSon 08-18-2024 Neutrophil, Absolute 5.0 10 3/mcL Normal 2.3-8.1 [facility] Comment on above: Performed By: #### T IKE #### [address] [address] BMPon 08-18-2024 BUN/Creatinine Ratio 16 ratio Normal 7-27 [facility] Comment on above: Performed By: #### T IKE #### [address] [address] Calcium [Mass/Vol] 9.4 mg/dL Normal 8.4-10.2 [facility] Comment on above: Performed By: #### T IKE #### [address] [address] Chloride [Moles/Vol] 108 mmol/L High 98-107 [facility] Comment on above: Performed By: #### T IKE #### [address] [address] CO2 [Moles/Vol] 28 mmol/L Normal 22-29 [facility] Comment on above: Performed By: #### T IKE #### [address] [address] Creatinine [Mass/Vol] 0.75 mg/dL Normal 0.55-1.02 [facility] Comment on above: Result Comment: Test ing performed on Siemens Dimension EXL analyzer using a modified kinetic Abbey technique. Performed By: #### T IKE #### [address] [address] Electrolyte Balance 10.0 mEq/L Normal 4.0-15.0 [facility] Comment on above: Performed By: #### T IKE #### [address] [address] Glucose [Mass/Vol] 124 mg/dL High 70-105 [facility] Comment on above: Performed By: #### T IKE #### [address] [address] Potassium [Moles/Vol] 3.7 mmol/L Normal 3.5-5.1 [facility] Comment on above: Performed By: #### T IKE #### [address] [address] Sodium [Moles/Vol] 146 mmol/L High 136-145 [facility] Comment on above: Performed By: #### T IKE #### [address] [address] Urea nitrogen [Mass/Vol] 12 mg/dL Normal 7-18 [facility] Comment on above: Performed By: #### T IKE #### [address] [address] CBCon 08-18-2024 Erythrocyte distribution width (RBC) [Ratio] 14.0 % Normal 11.5-15.5 [facility] Comment on above: Performed By: #### G FR, TROPHS, CBC, MG, MDW, BMP, PBNP, ADIFF, ANEU, DIMER #### [address] [address] Hematocrit (Bld) [Volume fraction] 41.7 % Normal 34.0-46.0 [facility] Comment on above: Performed By: #### G FR, TROPHS, CBC, MG, MDW, BMP, PBNP, ADIFF, ANEU, DIMER #### [address] [address] Hgb 14.3 G/dL Normal 12.0-16.0 [facility] Comment on above: Performed By: #### G FR, TROPHS, CBC, MG, MDW, BMP, PBNP, ADIFF, ANEU, DIMER #### [address] [address] MCH (RBC) [Entitic mass] 32.5 pg Normal 27.0-33.0 [facility] Comment on above: Performed By: #### G FR, TROPHS, CBC, MG, MDW, BMP, PBNP, ADIFF, ANEU, DIMER #### [address] [address] MCHC 34.2 G/dL Normal 32.0-36.0 [facility] Comment on above: Performed By: #### G FR, TROPHS, CBC, MG, MDW, BMP, PBNP, ADIFF, ANEU, DIMER #### [address] [address] MCV (RBC) [Entitic vol] 95.2 fL Normal 80.0-99.0 [facility] Comment on above: Performed By: #### G FR, TROPHS, CBC, MG, MDW, BMP, PBNP, ADIFF, ANEU, DIMER #### [address] [address] Platelet 341 10 3/mcL Normal 150-450 [facility] Comment on above: Performed By: #### G FR, TROPHS, CBC, MG, MDW, BMP, PBNP, ADIFF, ANEU, DIMER #### [address] [address] Platelet mean volume (Bld) [Entitic vol] 7.0 fL Normal 6.6-10.5 [facility] Comment on above: Performed By: #### G FR, TROPHS, CBC, MG, MDW, BMP, PBNP, ADIFF, ANEU, DIMER #### [address] [address] RBC 4.39 10 6/mcL Normal 4.10-5.30 [facility] Comment on above: Performed By: #### G FR, TROPHS, CBC, MG, MDW, BMP, PBNP, ADIFF, ANEU, DIMER #### [address] [address] WBC 8.4 10 3/mcL Normal 4.5-10.8 [facility] Comment on above: Performed By: #### G FR, TROPHS, CBC, MG, MDW, BMP, PBNP, ADIFF, ANEU, DIMER #### [address] [address] DIMERon 08-18-2024 D-Dimer <200 Normal 0-230 [facility] Comment on above: Result Comment: DDN: Results reported in D-DU ng/mL. Negative for D-dimer. DVT/PE is highly unlikely. Note: False negative results may be seen in patients on anticoagulant therapy. The result of the D-Dimer test should be evaluated in the context of all the clinical and laboratory data available. In those instances where the laboratory result does not agree with the clinical evaluation, additional tests should be performed accordingly. If the D-Dimer result is used to exclude DVT or PE, the recommended cutoff value is less than 230 ng/mL. The D-Dimer result should not be used alone to rule in DVT/PE, but should be used in conjunction with a clinical pretest probability (PTP)assessment model to exclude venous thromboembolism (VTE) in outpatients suspected of deep venous thrombosis (DVT) and pulmonary embolism (PE). Performed By: #### T [facility] #### Raj[address] [address] LABORATORYOrdered By: SYSTEM SYSTEM on 08-18-2024 Troponin I.cardiac DL <= 0.01 ng/mL [Mass/Vol] 4 ng/L Normal 0 - 51 ng/L AO ADM SS Comment on above: Interpretive Data: H igh Sensitive Troponin I Reference Ranges: Female: 0-51 ng/L Male: 0-76 ng/L Testing performed on [employer] using a homogeneous sandwich chemiluminescent immunoassay based on Granular technology. Basophils (Bld) [#/Vol] 0.1 103/mcL Normal 0.0 - 0.2 10^3/mcL AO Workflow SS Basophils/100 WBC (Bld) 1.2 % Normal 0.0 - 2.5 % AO Workflow SS Calcium [Mass/Vol] 9.4 mg/dL Normal 8.4 - 10. 2 mg/dL AO ADM SS Chloride [Moles/Vol] 108 mmol/L High 98 - 10 7 mmol/L AO ADM SS CO2 [Moles/Vol] 28 mmol/L Normal 22 - 29 mmol/L AO ADM SS Creatinine [Mass/Vol] 0.75 mg/dL Normal 0.55 - 1.02 mg/dL AO ADM SS Comment on above: Interpretive Data: T esting performed on TURN[employer] Dimension EXL analyzer using a modified kinetic Abbey technique. Electrolyte Balance 10.0 mEq/L Normal 4.0 - 15 .0 mEq/L AO ADM SS Eosinophil, Absolute 0.2 103/mcL Normal 0.0 - 0 .7 10^3/mcL AO Workflow SS Eosinophils/100 WBC (Bld) 1.9 % Normal 0.0 - 7.0 % AO Workflow SS Erythrocyte distribution width (RBC) [Ratio] 14.0 % Normal 11.5 - 15.5 % AO Workflow SS Fibrin D-dimer DDU (PPP) [Mass/Vol] ng/mL D-DU Normal 0 - 230 ng/mL D-DU AO HemoHub SS Comment on above: Result Comment: DDN: Results reported in D-DU ng/mL. Negative for D-dimer. DVT/PE is highly unlikely. Note: False negative results may be seen in patients on anticoagulant therapy. Interpretive Data: T he result of the D-Dimer test should be evaluated in the context of all the clinical and laboratory data available. In those instances where the laboratory result does not agree with the clinical evaluation, additional tests should be performed accordingly. If the D-Dimer result is used to exclude DVT or PE, the recommended cutoff value is less than 230 ng/mL. The D-Dimer result should not be used alone to rule in DVT/PE, but should be used in conjunction with a clinical pretest probability (PTP)assessment model to exclude venous thromboembolism (VTE) in outpatients suspected of deep venous thrombosis (DVT) and pulmonary embolism (PE). GFR/1.73 sq M.predicted among blacks MDRD (S/P/Bld) [Vol rate/Area] 98 ml/min/1.73sqm Invalid Interpretation Code AO Chemistry S Comment on above: Interpretive Data: GFR Population mean for , Non- Americans Ages 20-29 = 116 mL/min/1.73 sq.m. Ages 30-39 = 107 mL/min/1.73 sq.m. Ages 40-49 = 99 mL/min/1.73 sq.m. Ages 50-59 = 93 mL/min/1.73 sq.m. Ages 60-69 = 85 mL/min/1.73 sq.m. Ages 70+ = 75 mL/min/1.73 sq.m. Chronic Kidney Disease: Less than 60 mL/min/1.73 square meters End Stage Renal Disease: Less than 15 mL/min/1.73 square meters GFR/1.73 sq M.predicted among non-blacks MDRD (S/P/Bld) [Vol rate/Area] 81 ml/min/1.73sqm Invalid Interpretation Code AO Chemistry S Comment on above: Interpretive Data: GFR Population mean for , Non- Americans Ages 20-29 = 116 mL/min/1.73 sq.m. Ages 30-39 = 107 mL/min/1.73 sq.m. Ages 40-49 = 99 mL/min/1.73 sq.m. Ages 50-59 = 93 mL/min/1.73 sq.m. Ages 60-69 = 85 mL/min/1.73 sq.m. Ages 70+ = 75 mL/min/1.73 sq.m. Chronic Kidney Disease: Less than 60 mL/min/1.73 square meters End Stage Renal Disease: Less than 15 mL/min/1.73 square meters Glucose [Mass/Vol] 124 mg/dL High 70 - 105 mg/dL AO ADM SS Hematocrit (Bld) [Volume fraction] 41.7 % Normal 34.0 - 46.0 % AO Workflow SS Hemoglobin (Bld) [Mass/Vol] 14.3 G/dL Normal 12.0 - 16.0 G/dL AO Workflow SS Lymphocytes (Bld) [#/Vol] 2.7 103/mcL Normal 0.9 - 4.3 10^3/mcL AO Workflow SS Lymphocytes/100 WBC (Bld) 32.0 % Normal 20.0 - 40.0 % AO Workflow SS Magnesium [Mass/Vol] 1.7 mg/dL Low 1.8 - 2 .4 mg/dL AO ADM SS [facility] (RBC) [Entitic mass] 32.5 pg Normal 27.0 - 33.0 pg AO Workflow SS MCHC 34.2 G/dL Normal 32.0 - 36.0 G/dL AO Workflow SS MCV (RBC) [Entitic vol] 95.2 fL Normal 80.0 - 99.0 fL AO Workflow SS Monocyte distribution width Auto (Bld) [Entitic vol] 17.15 1 Normal 0.00 - 20.00 AO Workflow SS Comment on above: Result Comment: For ED adult patients suspected of sepsis, MDW<=20.0 does not rule out sepsis or risk of sepsis Monocytes (Bld) [#/Vol] 0.4 103/mcL Normal 0.1 - 1.4 10^3/mcL AO Workflow SS Monocytes/100 WBC (Bld) 5.0 % Normal 2.0 - 13.0 % AO Workflow SS Natriuretic peptide.B prohormone N-Terminal [Mass/Vol] 237 pg/mL High 0 - 125 pg/mL AO ADM SS Comment on above: Interpretive Data: N T-proBNP results of less than 300 pg/mL effectively rules out acute congestive heart failure with 99% negative predictive value. Neutrophils (Bld) [#/Vol] 5.0 103/mcL Normal 2.3 - 8.1 10^3/mcL AO Workflow SS Neutrophils/100 WBC (Bld) 59.9 % Normal 50.0 - 75.0 % AO Workflow SS Platelet mean volume (Bld) [Entitic vol] 7.0 fL Normal 6.6 - 10.5 fL AO Workflow SS Platelets (Bld) [#/Vol] 341 103/mcL Normal 150 - 450 10^3/mcL AO Workflow SS Potassium [Moles/Vol] 3.7 mmol/L Normal 3.5 - 5.1 mmol/L AO ADM SS RBC (Bld) [#/Vol] 4.39 106/mcL Normal 4.10 - 5.3 0 10^6/mcL AO Workflow SS Sodium [Moles/Vol] 146 mmol/L High 136 - 145 mmol/L AO ADM SS Troponin I.cardiac DL <= 0.01 ng/mL [Mass/Vol] 4 ng/L Normal 0 - 51 ng/L AO ADM SS Comment on above: Interpretive Data: H igh Sensitive Troponin I Reference Ranges: Female: 0-51 ng/L Male: 0-76 ng/L Testing performed on [employer] using a homogeneous sandwich chemiluminescent immunoassay based on Granular technology. Urea nitrogen [Mass/Vol] 12 mg/dL Normal 7 - 18 mg/dL AO ADM SS Urea nitrogen/Creatinine [Mass ratio] 16 ratio Normal 7 - 27 ratio AO ADM SS WBC (Bld) [#/Vol] 8.4 103/mcL Normal 4.5 - 10.8 10^3/mcL AO Workflow SS MGon 08-18-2024 Magnesium [Mass/Vol] 1.7 mg/dL Low 1.8-2.4 [facility] Comment on above: Performed By: #### T [facility] #### [address] [address] PBNPon 08-18-2024 Natriuretic peptide B (Bld) [Mass/Vol] 237 pg/mL High 0-125 [facility] Comment on above: Result Comment: NT-p roBNP results of less than 300 pg/mL effectively rules out acute congestive heart failure with 99% negative predictive value. Performed By: #### T IKE #### [id number] [place], [place] [address] TROPHSon 08-18-2024 High Sensitivity Troponin I 4 ng/L Normal 0-51 [facility] Comment on above: Result Comment: High Sensitive Troponin I Reference Ranges: Female: 0-51 ng/L Male: 0-76 ng/L Testing performed on [employer] using a homogeneous sandwich chemiluminescent immunoassay based on Granular technology. Performed By: #### T IKE #### [address] [address] High Sensitivity Troponin I 4 ng/L Normal 0-51 [facility] Comment on above: Result Comment: High Sensitive Troponin I Reference Ranges: Female: 0-51 ng/L Male: 0-76 ng/L Testing performed on [employer] using a homogeneous sandwich chemiluminescent immunoassay based on Granular technology. Performed By: #### T IEK #### [address] [address] XR CHEST 2 VIEWSon XR CHEST 2 VIEWS ORIGINAL EXAMINATION: TWO XRAY VIEWS OF THE CHEST 08/18/2024 4:17 pm COMPARISON: 08/19/2023 HISTORY: ORDERING SYSTEM PROVIDED HISTORY: Reason for Exam: CP started yesterday evening Chest Pain FINDINGS: Cardiomediastinal silhouette is within normal limits. There is no overt edema. No focal consolidation. Costophrenic angles are sharp. No pneumothorax. No acute osseous abnormality. IMPRESSION: No acute cardiopulmonary process. Interpreted by: Surekha Mendes Preliminary Report By: Surekha Mendes Electronically signed By Surekha Mendes Dictated Date: 08/18/2024 4:20:46 PM Prelim Date: 08/18/2024 4:21:33 PM Sign Date: 08/18/2024 4:21:33 PM Ordering Provider: SARAH Shelley [facility] FT4on 10-23-2023 Free T4 [Mass/Vol] 0.95 ng/dL Normal 0.76-1.46 [facility] ([place]) Comment on above: Performed By: #### F T4, TSH #### [address] [address] LABORATORYOrdered By: SYSTEM SYSTEM on 10-23-2023 Free T4 [Mass/Vol] 0.95 ng/dL Normal 0.76 - 1. 46 ng/dL AO ADM SS TSH Qn 4.66 m[IU]/L High 0.36 - 3.74 mcIU/mL AO ADM SS MA MAMMOGRAM SCREENING BILAT ERAL W/TOMOon 10-23-2023 MA MAMMOGRAM SCREENING BILATERAL W/SAM ORIGINAL FROM: [address] [address] PROCEDURE FOR: LISBETH VALDEZ [address] [place] [address] Home: PID#: [id number] Exam#: [id number] : 1970 Age: 53 TO: ROBERTA OBINNAALISA OFE [facility] [place], [place] [address] Fax: NO FAX EXAMINATION: SCREENING DIGITAL BILATERAL MAMMOGRAM WITH TOMOSYNTHESIS, 10/23/2023 12:43 pm TECHNIQUE: Screening mammography of the bilateral breasts was performed with tomosynthesis. 2D standard and 3D tomosynthesis combination imaging performed through both breasts in the MLO and CC projection. Computer aided detection was utilized in the interpretation of this exam. COMPARISON: 10/27/2021 HISTORY: Breast cancer screening FINDINGS: BREAST DENSITY: Scattered fibroglandular tissue There are no significant masses or calcifications. IMPRESSION: No mammographic evidence of malignancy. Continued screening with annual mammograms is recommended. Blanco Soria risk calculations, generated with the history provided, report this patient's 10 year risk and lifetime risk for developing breast cancer at 1.9% and 6.7%, respectively. Based on this assessment tool, if the patient's calculated lifetime risk is below 20%, then the patient is considered at average risk for developing breast cancer. If the patient's calculated lifetime risk is at or above 20%, then the patient is considered high risk for developing breast cancer and may be a candidate for supplemental breast MRI screening in addition to annual mammographic screening per the [employer]. BIRADS: MAMMOGRAM BI-RADS: 1: Negative RECALL: 1 year screening RECALL TYPE: mammo LETTER SENT: Normal BI-RADS 1 and 2 Interpreted by: Eyal Tan MD Preliminary Report By: Eyal Tan MD Electronically signed By Eyal Tan MD Dictated Date: 10/23/2023 6:47:09 PM Prelim Date: 10/23/2023 6:56:15 PM Sign Date: 10/23/2023 6:56:15 PM Ordering Provider: ROBERTA PUGH CLINICAL: Outside mamms. [employer] Operator: JOVANNI LEON RT (R)(M) letter sent: Normal BI-RADS 1 and 2 Mammogram BI-RADS: 1 Negative Normal [facility] ([place]) TSHon 10-23-2023 TSH Qn 4.66 m[IU]/L High 0.36-3.74 [facility]) Comment on above: Performed By: #### F T4, TSH #### [address] [address] XR CHEST 1 VIEWon 08-19-2023 XR CHEST 1 VIEW ORIGINAL EXAMINATION: ONE XRAY VIEW OF THE CHEST 08/19/2023 6:53 pm COMPARISON: None. HISTORY: ORDERING SYSTEM PROVIDED HISTORY: Reason for Exam: SOB/cough/fever FINDINGS: Cardiomediastinal contours are normal. No focal consolidation or pulmonary edema. No pneumothorax or pleural effusion. No acute osseous abnormality. Well-defined lucency in the right scapula with narrow zone of transition may be positional artifact or may represent a cyst. IMPRESSION: No acute radiographic process. I have personally reviewed the images of this examination and agree with the resident's findings and interpretation. Interpreted by: Rosalio Li Preliminary Report By: Shaila Giron Electronically signed By Rosalio Li Dictated Date: 08/19/2023 7:06:29 PM Prelim Date: 08/19/2023 7:08:06 PM Sign Date: 08/19/2023 7:11:20 PM Ordering Provider: DEMARIO ROMO Normal [facility] ([place]) HCVon 07-13-2023 Hep C Ab Non-Reactive Normal Non-Reactive [facility] ([place]) Comment on above: Performed By: #### F T4, TSH #### [place] [id number] Hep C Ab Int Normal [facility] ([place]) Comment on above: Result Comment: Nonr eactive: Samples with a value < 0.80 are considered nonreactive (negative) for antibodies to HCV. A negative test result does not exclude the possibility of exposure to or infection with HCV. HCV antibodies may be undetectable in some stages of the infection and in some clinical conditions. See Interp Performed By: #### F T4, TSH #### [address] [address] .Auto Diffon 07-12-2023 Basophil, Absolute 0.1 10 3/mcL Normal 0.0-0.2 [facility] ([place]) Comment on above: Performed By: #### C MP, A1C, LIPID, ANEU, CBC, ADIFF, GFR, TSH #### [place] [address] #### HCV1 #### [address] [address] Basophils/100 WBC (Bld) 0.8 % Normal 0.0-2.5 [facility] ([place] Comment on above: Performed By: #### C MP, A1C, LIPID, ANEU, CBC, ADIFF, GFR, TSH #### [place] [address] #### HCV1 #### [address] [address] Eosinophil, Absolute 0.1 10 3/mcL Normal 0.0-0.4 [facility] ([place]) Comment on above: Performed By: #### C MP, A1C, LIPID, ANEU, CBC, ADIFF, GFR, TSH #### [place] [address] #### HCV1 #### [address] [address] Eosinophils/100 WBC (Bld) 1.9 % Normal 0.0-7.0 [facility] ([place] Comment on above: Performed By: #### C MP, A1C, LIPID, ANEU, CBC, ADIFF, GFR, TSH #### [address] [address] #### HCV1 #### [address] [address] Lymphocyte, Absolute 2.5 10 3/mcL Normal 0.8-3.9 [facility] ([place]) Comment on above: Performed By: #### C MP, A1C, LIPID, ANEU, CBC, ADIFF, GFR, TSH #### [address] [address] #### HCV1 #### [address] [address] Lymphocytes/100 WBC (Bld) 32.5 % Normal 10.0-50.0 [facility] ([place] Comment on above: Performed By: #### C MP, A1C, LIPID, ANEU, CBC, ADIFF, GFR, TSH #### [address] [address] #### HCV1 #### [address] [address] Monocyte, Absolute 0.4 10 3/mcL Normal 0.2-1.0 [facility] ([place] Comment on above: Performed By: #### C MP, A1C, LIPID, ANEU, CBC, ADIFF, GFR, TSH #### [address] [address] #### HCV1 #### [address] [address] Monocytes/100 WBC (Bld) 5.8 % Normal 1.7-13.0 [facility] ([place] Comment on above: Performed By: #### C MP, A1C, LIPID, ANEU, CBC, ADIFF, GFR, TSH #### [address] [address] #### HCV1 #### [address] [address] Neutrophils/100 WBC (Bld) 59.0 % Normal 37.0-80.0 [facility] ([place] Comment on above: Performed By: #### C MP, A1C, LIPID, ANEU, CBC, ADIFF, GFR, TSH #### [address] [address] #### HCV1 #### [address] [address] .GFRon 07-12-2023 GFR 118 ml/min/1.73sqm Normal [facility] ([place] Comment on above: Result Comment: GFR Population mean for , Non- Americans Ages 20-29 = 116 mL/min/1.73 sq.m. Ages 30-39 = 107 mL/min/1.73 sq.m. Ages 40-49 = 99 mL/min/1.73 sq.m. Ages 50-59 = 93 mL/min/1.73 sq.m. Ages 60-69 = 85 mL/min/1.73 sq.m. Ages 70+ = 75 mL/min/1.73 sq.m. Chronic Kidney Disease: Less than 60 mL/min/1.73 square meters End Stage Renal Disease: Less than 15 mL/min/1.73 square meters Performed By: #### C MP, A1C, LIPID, ANEU, CBC, ADIFF, GFR, TSH #### [address] [address] #### HCV1 #### [address] [address] GFR Non- 97 ml/min/1.73sqm Normal [facility] ([place] Comment on above: Result Comment: GFR Population mean for , Non- Americans Ages 20-29 = 116 mL/min/1.73 sq.m. Ages 30-39 = 107 mL/min/1.73 sq.m. Ages 40-49 = 99 mL/min/1.73 sq.m. Ages 50-59 = 93 mL/min/1.73 sq.m. Ages 60-69 = 85 mL/min/1.73 sq.m. Ages 70+ = 75 mL/min/1.73 sq.m. Chronic Kidney Disease: Less than 60 mL/min/1.73 square meters End Stage Renal Disease: Less than 15 mL/min/1.73 square meters Performed By: #### C MP, A1C, LIPID, ANEU, CBC, ADIFF, GFR, TSH #### [address] [address] #### HCV1 #### [address] [address] .NEUABSon 07-12-2023 Neutrophil, Absolute 4.5 10 3/mcL Normal 2.9-6.2 [facility] ([place]) Comment on above: Performed By: #### C MP, A1C, LIPID, ANEU, CBC, ADIFF, GFR, TSH #### [place] [address] #### HCV1 #### [place] [address] A1Con 07-12-2023 HbA1c (Bld) [Mass fraction] 5.3 % Normal 4.3-6.4 [facility] ([place] Comment on above: Performed By: #### F T4, TSH #### [place] [address] CBCon 07-12-2023 Erythrocyte distribution width (RBC) [Ratio] 13.8 % Normal 11.5-14.5 [facility] ([place] Comment on above: Performed By: #### C MP, A1C, LIPID, ANEU, CBC, ADIFF, GFR, TSH #### [place] [address] #### HCV1 #### [place] [address] Hematocrit (Bld) [Volume fraction] 39.9 % Normal 37.0-47.0 [facility] ([place] Comment on above: Performed By: #### C MP, A1C, LIPID, ANEU, CBC, ADIFF, GFR, TSH #### [place] [address] #### HCV1 #### [place] [address] Hgb 13.4 G/dL Normal 12.0-16.0 [facility] ([place] Comment on above: Performed By: #### C MP, A1C, LIPID, ANEU, CBC, ADIFF, GFR, TSH #### [place] [address] #### HCV1 #### [address] [address] MCH (RBC) [Entitic mass] 31.5 pg High 27.0-31.2 [facility] ([place] Comment on above: Performed By: #### C MP, A1C, LIPID, ANEU, CBC, ADIFF, GFR, TSH #### [place] [address] #### HCV1 #### [place] [address] MCHC 33.5 G/dL Normal 33.0-37.0 [facility] ([place] Comment on above: Performed By: #### C MP, A1C, LIPID, ANEU, CBC, ADIFF, GFR, TSH #### [place] [address] #### HCV1 #### [place] [address] MCV (RBC) [Entitic vol] 94.0 fL Normal 80.0-94.0 [facility] ([place] Comment on above: Performed By: #### C MP, A1C, LIPID, ANEU, CBC, ADIFF, GFR, TSH #### [place] [address] #### HCV1 #### [place] [address] Platelet 345 10 3/mcL Normal 130-400 [facility] ([place] Comment on above: Performed By: #### C MP, A1C, LIPID, ANEU, CBC, ADIFF, GFR, TSH #### [place] [address] #### HCV1 #### [place] [address] Platelet mean volume (Bld) [Entitic vol] 7.8 fL Normal 7.4-10.4 [facility] ([place] Comment on above: Performed By: #### C MP, A1C, LIPID, ANEU, CBC, ADIFF, GFR, TSH #### [address] [address] #### HCV1 #### [address] [address] RBC 4.25 10 6/mcL Normal 4.20-5.40 [facility] ([place]) Comment on above: Performed By: #### C MP, A1C, LIPID, ANEU, CBC, ADIFF, GFR, TSH #### [address] [address] #### HCV1 #### [place] [address] WBC 7.7 10 3/mcL Normal 4.6-10.8 [facility] ([place] Comment on above: Performed By: #### C MP, A1C, LIPID, ANEU, CBC, ADIFF, GFR, TSH #### [place] [address] #### HCV1 #### [address] 07-12-2023 Albumin Level 3.7 G/dL Normal 3.5-5.0 [facility] ([place]) Comment on above: Performed By: #### C MP, A1C, LIPID, ANEU, CBC, ADIFF, GFR, TSH #### [place] [address] #### HCV1 #### [place] [address] Albumin/Globulin [Mass ratio] 1.2 {ratio} Normal 1.1-2.5 [facility] ([place] Comment on above: Performed By: #### C MP, A1C, LIPID, ANEU, CBC, ADIFF, GFR, TSH #### [address] [address] #### HCV1 #### [facility] [address] [place], [place] [address] ALP [Catalytic activity/Vol] 84 U/L Normal 40-135 [facility] ([place] Comment on above: Performed By: #### C MP, A1C, LIPID, ANEU, CBC, ADIFF, GFR, TSH #### [address] [address] #### HCV1 #### [address] [address] ALT [Catalytic activity/Vol] 22 U/L Normal 14-59 [facility] ([place] Comment on above: Performed By: #### C MP, A1C, LIPID, ANEU, CBC, ADIFF, GFR, TSH #### [place] [address] #### HCV1 #### [address] [address] AST [Catalytic activity/Vol] 13 U/L Normal 10-40 [facility] ([place] Comment on above: Performed By: #### C MP, A1C, LIPID, ANEU, CBC, ADIFF, GFR, TSH #### [place] [address] #### HCV1 #### [address] [address] Bili Total 0.4 mg/dL Normal 0.2-1.0 [facility] ([place] Comment on above: Result Comment: Use of this assay is not recommended for patients undergoing treatment with eltrombopag due to the potential for falsely elevated results. Performed By: #### C MP, A1C, LIPID, ANEU, CBC, ADIFF, GFR, TSH #### [address] [address] #### HCV1 #### [place] [id number] BUN/Creatinine Ratio 31 ratio High 7-27 [facility] ([place] Comment on above: Performed By: #### C MP, A1C, LIPID, ANEU, CBC, ADIFF, GFR, TSH #### [place] [address] #### HCV1 #### [address] [address] Calcium [Mass/Vol] 8.9 mg/dL Normal 8.4-10.2 [facility] ([place] Comment on above: Performed By: #### C MP, A1C, LIPID, ANEU, CBC, ADIFF, GFR, TSH #### [address] [address] #### HCV1 #### [address] [address] Chloride [Moles/Vol] 107 mmol/L Normal 98-107 [facility] ([place] Comment on above: Performed By: #### C MP, A1C, LIPID, ANEU, CBC, ADIFF, GFR, TSH #### [address] [address] #### HCV1 #### [address] [address] CO2 [Moles/Vol] 29 mmol/L Normal 22-29 [facility] ([place]) Comment on above: Performed By: #### C MP, A1C, LIPID, ANEU, CBC, ADIFF, GFR, TSH #### [place] [address] #### HCV1 #### [address] [address] Creatinine [Mass/Vol] 0.64 mg/dL Normal 0.55-1.02 [facility] ([place]) Comment on above: Performed By: #### C MP, A1C, LIPID, ANEU, CBC, ADIFF, GFR, TSH #### [place] [address] #### HCV1 #### [address] [address] Electrolyte Balance 8.0 mEq/L Normal 4.0-15.0 [facility] ([place]) Comment on above: Performed By: #### C MP, A1C, LIPID, ANEU, CBC, ADIFF, GFR, TSH #### [place] [address] #### HCV1 #### [address] [address] Globulin 3.2 G/dL Normal [facility] ([place] Comment on above: Performed By: #### C MP, A1C, LIPID, ANEU, CBC, ADIFF, GFR, TSH #### [address] [address] #### HCV1 #### [address] [address] Glucose [Mass/Vol] 76 mg/dL Normal 70-105 [facility] ([place] Comment on above: Performed By: #### C MP, A1C, LIPID, ANEU, CBC, ADIFF, GFR, TSH #### [address] [address] #### HCV1 #### [address] [address] Potassium [Moles/Vol] 5.1 mmol/L Normal 3.5-5.1 [facility] ([place]) Comment on above: Performed By: #### C MP, A1C, LIPID, ANEU, CBC, ADIFF, GFR, TSH #### [address] [address] #### HCV1 #### [address] [address] Sodium [Moles/Vol] 144 mmol/L Normal 136-145 [facility] ([place] Comment on above: Performed By: #### C MP, A1C, LIPID, ANEU, CBC, ADIFF, GFR, TSH #### [address] [address] #### HCV1 #### [address] [address] Total Protein 6.9 G/dL Normal 6.4-8.2 [facility] ([place] Comment on above: Performed By: #### C MP, A1C, LIPID, ANEU, CBC, ADIFF, GFR, TSH #### [address] [address] #### HCV1 #### [address] [address] Urea nitrogen [Mass/Vol] 20 mg/dL High 7-18 [facility] ([place] Comment on above: Performed By: #### C MP, A1C, LIPID, ANEU, CBC, ADIFF, GFR, TSH #### [address] [address] #### HCV1 #### [address] [address] LIPIDon 07-12-2023 Cholesterol [Mass/Vol] 196 mg/dL Normal 0-200 [facility] ([place] Comment on above: Result Comment: Chol esterol Reference Interval: Less than 200 Desirable 200-239 Borderline high risk 240 and above High risk Performed By: #### F T4, TSH #### [address] [address] Cholesterol in HDL [Mass/Vol] 60 mg/dL Normal 40-60 [facility] ([place] Comment on above: Performed By: #### F T4, TSH #### [address] [address] Cholesterol in LDL [Mass/Vol] 114 mg/dL Normal 0-130 [facility] ([place] Comment on above: Performed By: #### F T4, TSH #### [address] [address] Triglyceride [Mass/Vol] 108 mg/dL Normal 0-150 [facility] ([place] Comment on above: Result Comment: Trig lyceride Reference Interval: Less than 150 Normal 150-199 Borderline high risk 200-499 High risk 500 or higher Very high risk Performed By: #### F T4, TSH #### [address] [address] TSHon 07-12-2023 TSH Qn 3.78 m[IU]/L High 0.36-3.74 [facility] ([place] Comment on above: Performed By: #### C MP, A1C, LIPID, ANEU, CBC, ADIFF, GFR, TSH #### [address] [address] #### HCV1 #### [address], [place] [address] Office Visiton 12-26-2016 Documentation of current medications (procedure) Done Invalid Interpretation Code [facility] Work Phone: Office Visiton 08-22-2016 Smoking cessation education (procedure) yes Invalid Interpretation Code [facility] Work Phone: Tobacco smoking status NHIS Current every day smoker [facility] Work Phone: Tobacco use CPHS Current every day smoker Invalid Interpretation Code [facility] Work Phone: Vital Signs Date Time Vital Sign Value Performing Clinician Facility 06-24-2025 08:59-0400 Body height 160.02 cm Baltazar Jiang MD Work Phone: [phone])160-425275 [place] [address] 06-24-2025 08:59-0400 Body mass index (BMI) [Ratio] 30.4 kg/m2 Baltazar Jiang MD Work Phone: 2(234)[phone] [address] 06-24-2025 08:59-0400 Body weight 78.01 kg Baltazar Jiang MD Work Phone: 3(420)[phone] [place] [address] 06-10-2025 10:31-0400 Body height 160.02 cm Baltazar Jiang MD Work Phone: 4(246)860-626663 [address] 06-10-2025 10:31-0400 Body mass index (BMI) [Ratio] 30.8 kg/m2 Baltazar Jiang MD Work Phone: 8(269)425-329275 [place] [address] 06-10-2025 10:31-0400 Body weight 79.01 kg Baltazar Jiang MD Work Phone: 3(646)[phone] [address] 06-02-2025 16:17-0400 Body temperature 97.5 [degF] Baltazar Jiang MD Work Phone: 6(655)[phone] [address] 06-02-2025 16:17-0400 Diastolic blood pressure 77 mm[Hg] Baltazar Jiang MD Work Phone: 0(705)294-335275 [place] [address] 06-02-2025 16:17-0400 Heart rate 70 /min Baltazar Jiang MD Work Phone: [facility] 06-02-2025 16:17-0400 Respiratory rate 16 /min Baltazar Jiang MD Work Phone: 5(463)689-802175 [place] [address] 06-02-2025 16:17-0400 SaO2% (BldA) [Mass fraction] 100 % Baltazar Jiang MD Work Phone: 2(348)447-734075 [place] [address] 06-02-2025 16:17-0400 Systolic blood pressure 115 mm[Hg] Baltazar Jiang MD Work Phone: 3(222)738-402075 [place] [address] 06-02-2025 13:41-0400 Body height 160.02 cm Baltazar Jiang MD Work Phone: 1([phone])[phone] [address] 06-02-2025 13:41-0400 Body mass index (BMI) [Ratio] 31.1 kg/m2 Baltazar Jiang MD Work Phone: 6([phone])399-990475 [place] [address] 06-02-2025 13:41-0400 Body weight 79.6 kg Baltazar Jiang MD Work Phone: 0(350)[phone] [place] [address] 09-05-2024 10:53-0500 Diastolic Blood Pressure Non-Invasive 66 mm[Hg] DR JARETT COATS MD [facility] 09-05-2024 10:53-0500 Heart rate 69 /min DR JARETT COATS MD [facility] 09-05-2024 10:53-0500 Respiratory rate 18 /min DR JARETT COATS MD [facility] 09-05-2024 10:53-0500 Systolic Blood Pressure Non-Invasive 105 mm[Hg] DR JARETT COATS MD [facility] 09-05-2024 10:41-0500 Diastolic Blood Pressure Non-Invasive 68 mm[Hg] DR JARETT COATS MD [facility] 09-05-2024 10:41-0500 Heart rate 58 /min DR JARETT COATS MD [address] [place] [address] 09-05-2024 10:41-0500 Respiratory rate 18 /min DR JARETT COATS MD [address] [place] [address] 09-05-2024 10:41-0500 Systolic Blood Pressure Non-Invasive 104 mm[Hg] DR JARETT COATS MD [address] [place] [address] 09-05-2024 10:25-0500 Diastolic Blood Pressure Non-Invasive 67 mm[Hg] DR JARETT COATS MD [address] [place] [address] 09-05-2024 10:25-0500 Heart rate 68 /min DR JARETT COATS MD [address] [place] [address] 09-05-2024 10:25-0500 Respiratory rate 18 /min DR JARETT COATS MD [address] [place] [address] 09-05-2024 10:25-0500 Systolic Blood Pressure Non-Invasive 105 mm[Hg] DR JARETT COATS MD [address] [place] [address] 09-05-2024 07:22-0500 Body height [address] JARETT COATS MD [address] [place] [address] 09-05-2024 07:22-0500 Body temperature 97.34 [degF] DR JARETT COATS MD [address] [place] [address] 09-05-2024 07:22-0500 Body weight 80.[address] JARETT COATS MD [address] [place] [address] 09-05-2024 07:22-0500 Heart rate 87 /min DR JARETT COATS MD [address] [place] [address] 08-18-2024 18:42-0500 Diastolic Blood Pressure Non-Invasive 75 mm[Hg] SARAH KIDD DO [facility] 08-18-2024 18:42-0500 Heart rate 58 /min SARAH KIDD DO [facility] 08-18-2024 18:42-0500 Mean blood pressure 89 mm[Hg] SARAH MARTI DO [facility] 08-18-2024 18:42-0500 Respiratory rate 18 /min SARAH MARTI DO [facility] 08-18-2024 18:42-0500 Systolic Blood Pressure Non-Invasive 119 mm[Hg] SARAH MARTI DO [facility] 08-18-2024 17:48-0500 Diastolic Blood Pressure Non-Invasive 78 mm[Hg] SARAH MARTI DO [facility] 08-18-2024 17:48-0500 Heart rate 66 /min SARAH MARTI DO [facility] 08-18-2024 17:48-0500 Mean blood pressure 89 mm[Hg] SARAH MARTI DO [facility] 08-18-2024 17:48-0500 Respiratory rate 18 /min SARAH MARTI DO [facility] 08-18-2024 17:48-0500 Systolic Blood Pressure Non-Invasive 114 mm[Hg] SARAH MARTI DO [facility] 08-18-2024 16:44-0500 Diastolic Blood Pressure Non-Invasive 68 mm[Hg] SARAH MARTI DO [facility] 08-18-2024 16:44-0500 Heart rate 67 /min SARAH MARTI DO [facility] 08-18-2024 16:44-0500 Mean blood pressure 82 mm[Hg] SARAH MARTI DO [facility] 08-18-2024 16:44-0500 Respiratory rate 18 /min SARAH MARTI DO [facility] 08-18-2024 16:44-0500 Systolic Blood Pressure Non-Invasive 118 mm[Hg] SARAH KIDD DO [facility] 08-18-2024 15:26-0500 Body height 160 cm SARAH KIDD DO [facility] 08-18-2024 15:26-0500 Body temperature 98.06 [degF] SARAH KIDD DO [facility] 08-18-2024 15:26-0500 Body weight 77.3 kg SARAH KIDD DO [facility] 08-18-2024 15:26-0500 Heart rate 75 /min SARAH KIDD DO [facility] 01-06-2016 13:57-0400 Height 160.02 cm Vivian Bacon [facility] Medical [facility] Work Phone: Encounters Encounter Date Encounter Type Care Provider Facility Start: 06-24-2025 End: 06-24-2025 Patient encounter procedure Mendy Alexandre NP-C -[facility] Work Phone: Start: 06-24-2025 End: 06-24-2025 ambulatory Roberta Pugh NP Facility:[facility] Start: 06-10-2025 End: 06-10-2025 Patient encounter procedure Mendy Alexandre NP-C -[facility] Work Phone: Start: 06-10-2025 End: 06-10-2025 ambulatory Baltazar Jiang MD Work Phone: -[facility] Start: 06-02-2025 End: 06-02-2025 Emergency department patient visit Baltazar Jiang MD Work Phone: -Emergency Department Work Phone: Start: 02-20-[address] JARETT COATS MD F acility:A Start: 11-17-2024 End: 11-17-[address] JARETT COATS MD Facility:[facility] Start: 09-05-2024 End: 09-05-2024 ambulatory ROBERTA KEATON [employer]ER[employer] A[employer] Facility:A Start: 09-05-2024 End: 09-05-[address] JARETT COATS MD [facility] Start: 08-29-2024 End: 08-29-[address] JARETT COATS MD Facility:[facility] Start: 08-29-2024 End: 08-29-[address] JARETT COATS MD [facility] Start: 08-19-2024 End: 08-19-2024 ambulatory ROBERTA BALALISA [employer] MANAGER-CATERER'S AIDE Facility:[facility] Start: 08-19-2024 End: 08-19-[address] JARETT COATS MD [facility] Start: 08-18-2024 End: 08-18-2024 Emergency department patient visit SARAH KIDD DO [facility] Start: 10-30-2023 ambulatory ROBERTA BALTES [employer] MANAGER-CATERER'S AIDE Fa cility:B Start: 10-30-2023 End: 10-30-2023 Patient encounter procedure ROBERTA BALTES [employer] MANAGER-CATERER'S AIDE [facility] Start: 10-23-2023 End: 10-24-2023 ambulatory ROBERTA BALTES [employer] MANAGER-CATERER'S AIDE Facility:B Start: 10-23-2023 End: 10-23-2023 Patient encounter procedure ROBERTA BALTES [employer] MANAGER-CATERER'S AIDE [facility] Start: 08-19-2023 End: 08-19-2023 Emergency department patient visit DEMARIO ROMO MD Facility:B Start: 07-12-2023 End: 07-13-2023 ambulatory ROBERTA PUGH [employer] MANAGER-CATERER'S AIDE Facility:B Start: 04-24-2023 ambulatory ROBERTA PUGH [employer] MANAGER-CATERER'S AIDE Fa cility:B Procedures Date Procedure Procedure Detail Performing Clinician Start: 06-10-2025 Radiologic exam knee complete 4/more views Baltazar Jiang MD Work Phone: Start: 06-02-2025 Plain X-ray of femur Al carol Jiang MD Work Phone: Start: 06-02-2025 Plain X-ray of tibia and fibula Baltazar Jiang MD Work Phone: Start: 06-02-2025 Radex sacrum & coccy x minimum 2 views Baltazar Jiang MD Work Phone: Start: 09-03-2022 Bilateral cataract surgery ROBERTA PUGH [employer] Start: 08-05-2018 Echocardiography ROBERTA Bibiana RIGOBERTO [employer] Comment on above: WHG Start: 08-05-2018 Exercise stress test - endocrine ROBERTA PUGH [employer] Comment on above: WHG Start: 07-12-2018 12 lead ECG ROBERTA Holly [employer] Comment on above: WHG; sinus josafat Start: 12-26-2016 End: 12-26-2016 Documentation of current medications Vivian Bacon Start: 08-22-2016 End: 08-22-2016 Smoking cessation education Vivian Bacon Start: 09-03-1999 Hysterectomy ROBERTA Holly [employer] Start: 09-03-1980 Tonsil and adenoid s tructure (body structure) ROBERTA PUGH [employer] Reconstruction of nose ROBERTA PUGH [employer] Comment on above: x 2 Plan of Treatment Date Care Activity Detail Author Start: 06-10-2025 Radiologic exam knee complete 4/more views Knee 4 or More Views [facility] Start: 06-10-2025 XR Knee GE 4 Views [facility] Start: 06-02-2025 [facility] Start: 12-27-2016 End: 12-27-2016 Physical Therapy General Physical Therapy [facility], [address] [place] [address], [id number] [facility] Work Phone: Start: 11-22-2016 End: 11-22-2016 Physical Therapy General Physical Therapy [facility], [address] [place] [address], [id number] [facility] Work Phone: Start: 11-21-2016 End: 11-21-2016 X-ray exam of ankle X-Ray, Ankle [facility] Work Phone: Start: 05-23-2016 End: 05-23-2016 X-ray exam of foot X-Ray, Foot [facility] Work Phone: Start: 03-07-2016 End: 03-07-2016 Mri jnt of lwr extre w/o dye MRI Joint Lower Extremity [facility] Work Phone: Start: 03-07-2016 End: 03-07-2016 X-ray exam of foot X-Ray, Foot [facility] Work Phone: Start: 01-06-2016 End: 01-06-2016 X-ray exam, knee, 4 or more X-Ray, Knee [facility] Work Phone: Patient Education ED Coccyx or S acrum Contusion ED Contusion, Lower Extremity ED Mechanical Fall [facility] Work Phone: Payers Date Payer Category Payer Self-pay 2024 Unknown [id number] 2023 Unknown [id number] 2023 Medicaid [id number] 2016 Unknown [id number] 1970 Unknown [id number] 2.16.8 [id number] 1969 Unknown [id number] 2.16.8 [id number] 1969 Unknown [id number] 2.16.8 [id number] 1969 Unknown [id number] 2.16.8 [id number] 1970 Unknown [id number] 2.16.8 40.1.517599.3.579.2.7 1969 Unknown [id number] 2.16.8 40.1.374576.3.579.2.627 1969 Unknown [id number] 2.16.8 40.1.417509.3.579.2. 1969 Unknown [id number] 2.16.8 40.1.642128.3.579.2.7 1969 Unknown [id number] 2.16.8 40.1.799189.3.579.2.7 1969 Unknown [id number] 2.16.8 40.1.300538.3.579.2.627 1969 Unknown [id number] 2.16. 840.1.933315.3.579.2.7 1970 Unknown [id number] 2.16.8 40.1.816220.3.579.2.627 Unknown [id number] 2.16.8 40.1.873636.3.579.2.462 Unknown [id number] 2.16.8 40.1.069673.3.579.2.462 Unknown [id number] 2.16.8 40.1.337479.3.579.2.462 Unknown [id number] 2.16.8 [id number] Social History Date Type Detail Facility Start: 01-23-2023 End: 09-05-2024 Tobacco smoking status Light tobacco smoker (finding) [facility] Sex Assigned At [facility] Sex Female (finding) Rajendra [facility] jazal Start: 06-02-2025 End: 06-02-2025 Tobacco smoking status NHIS Ex-smoker (finding) [facility] Start: 12-21-2019 Alcohol Alcohol [facility] Start: 12-21-2019 Lives Lives [facility] Sex Female [facility] Start: 1970 Sex Assigned At Female W [facility] Functional Status Date Assessment Result Facility 09-05-2024 Functional Status Room check performed [facility] 09-05-2024 Functional Status [facility] 09-05-2024 Functional Status Maintained [facility] 08-18-2024 Functional Status Independent [facility] 08-18-2024 Functional Status [facility] 08-18-2024 Functional Status Independent [facility] Mental Status Date Assessment Result Facility 09-05-2024 Mental Status Orientation Oriented x 4 [facility] 09-05-2024 Mental Status [facility] 08-18-2024 Mental Status Orientation Oriented x 4 [facility] 08-18-2024 Mental Status [facility] Clinical Notes 08-18-2024 to 06-24-2025 Note Date & Type Note Facility 06-24-2025 Progress note [facility] 06-10-2025 Evaluation note Diagnosis Onset Date Resolution Left knee sprain acute June 10, 2025 10:22am Left knee sprain acute June 24, 2025 8:59am [facility] Work Phone: 1([phone] 110-660109-30-2025 Discharge summary [facility] Medical Records Department [address] [place] [address] Emergency Department Summary 06/02/25 MR#: [id number] Acct: [id number] Name: LISBETH VALDEZ Rep #:[id number] : 1970 54 From: Baltazar Jiang MD PCP: Roberta Pugh NP-Eddy Status:REG ER Location: ED HPI HPI - Fall History of Present Illness Chief Complaint: Fall Narrative Narrative: 54-year-old female past medical history of palpitations and tachycardia presentsafter fall off the back of a box truck. She states that she did not have the left portion up, turned around, and fell. This happened at 11:00, approximately4 hours ago. She denies hitting her head or loss of consciousness. Took a while for her to get up and stand because she was having left ankle and left lower leg pain. She states she has left ankle pain whenever she weightbears andwalks. She also has pain in the cleft of her buttocks, right near her tailbone. She denies hitting her head, loss of consciousness, or other injuries. She states her main concern is her left lower leg and her tailbone. She has not hada bowel movement since her injury. She took 2 Tylenol arthritis this morning which she usually takes. While she states her muscles and neck might be gettingstiff and sore, she denies any pain with movement of her neck, no other injuries. She states she does not take any blood thinners. [facility] Medical History Diarrhea Sleep apnea Arthritis History of back problems Claudication Nonrheumatic mitral valve prolapse Paroxysmal supraventricular tachycardia Nonsustained ventricular tachycardia Obesity Nicotine abuse Anxiety and depression Osteoarthritis Lumbar spondylosis Home Medications ?Medication ?Instructions ?Recorded ?Last Taken ?Type meloxicam 15 mg tablet 15 mg PO DAILY 07/12/18 Unkn own History naproxen 500 mg tablet 500 mg PO BID PRN #20 tabs 0 02/25/19 Unknown Rx metoprolol succinate 25 mg 25 mg PO DAILY #90 tabs Unknown Rx tablet,extended release 24 hr dapagliflozin propanediol 10 mg 10 mg PO DAILY 5 Unknown History tablet (Farxiga) diltiazem HCl 180 mg 180 mg PO DAILY 06/02/25 Unk nown History capsule,extended release 24 hr fexofenadine 60 mg tablet (Suzanne 60 mg PO BID Unknown History Allergy) isosorbide mononitrate 30 mg 30 mg PO DAILY 06/02/25 U nknown History tablet,extended release 24 hr magnesium oxide 400 mg (241.3 mg 400 mg PO DAILY 06/02 Unknown History magnesium) tablet metoprolol tartrate 25 mg tablet 25 mg PO BID PRN PRN palpitations 06/02/25 Unknown History pantoprazole 20 mg tablet,delayed 20 mg PO DAILY 06/02 Unknown History release potassium chloride 20 mEq 20 meq PO DAILY 06/02/25 Unk nown History tablet,extended release trazodone 50 mg tablet 50 mg PO QHS 06/02/25 Unknow n History venlafaxine 75 mg capsule,extended 75 mg PO DAILY 05/06 Unknown History release 24 hr Allergy/AdvReac Type Severity Reaction Status Date / Time egg Allergy Mild Unknown Verified 06/02/25 13:41 gluten Allergy Hives Verified 06/02/25 13:41 lactose Allergy Nausea/Vom/ Verified 06/02/25 13:41 Diarrhea Family History Father Hypertension Cancer leukemia Mother CAD (coronary artery disease) Heart disease Brain aneurysm Surgical History H/O right heart catheterization History of laparoscopic cholecystectomy History of left heart catheterization History of tubal ligation H/O arthroscopy of left knee History of History of hysterectomy History of rhinoplasty Social History household members: significant other Smoking Status: Former smoker quit date: 07/01/18 Tobacco: How many years used: 30 how long ago did patient quit smokin, 1ppd second hand exposure: Yes alcohol intake: current substance use type: does not use caffeine: Yes Type: coffee Number of servings: 2 ROS ROS ED ROS Narrative Review of systems positive for left lower leg pain left ankle pain. Positive sacrum/coccyx pain. Worse with movement and weightbearing. No hitting of head,no loss of consciousness, no pain with rangeof motion of neck. No nausea or vomiting, no other symptoms. EXAM Physical Exam Narrative Exam Narrative: GCS 15. ABCs intact. HEENT examination grossly unremarkable. PERRL, EOMI. Neck soft and supple without meningismus, no vertebral point tenderness or bony step- off. Full range of motion without pain. Cardiovascular examination regular rate and rhythm. Lungs are clear to auscultation bilaterally. Theabdomen is soft and nontender with positive bowel sounds. Neurological examination is nonfocal, nonl ateralizing. Musculoskeletal examination shows no tenderness to palpation in the left hip area. No proximal fibular head tenderness. Positive tenderness palpation left lateral malleolus. Palpable dorsalis pedis pulse. No palpable Achilles tendon deficit. Able to plantarflexand dorsiflex foot. Able to lift leg off bed. No radicular symptoms. Const Vital Signs: 06/02/25 13:41 06/02/25 14:32 Temperature 97.5 F L Temperature Source Temporal Pulse Rate 75 Respiratory Rate 18 Respiratory Effort Normal Non-Labored Blood Pressure 117/67 Blood Pressure Mean 83 Pulse Ox 100 Oxygen Delivery Method Room Air MDM MDM MDM Narrative Medical decision making narrative: Differential diagnosis includes but not limited to left ankle fracture versus sprain versus tibia and fibula fracture versus contusion. She may have more of a sacral/coccyx contusion versus fracture.X-rays were obtained of the sacrum and coccyx as well as the left femur and left tibia/fibula. Patient declined any analgesics orally here currently. On my independent visual interpretation of the x-rays of the sacrum and coccyx, there is no evidence of an acute fracture. I reviewed the radiology report which confirms my independent interpretation. Additionally, on my independent interpretation of the x-ray of the left femur there is no fracture. I reviewed the radiology report as well which confirms my independent interpretation. Lastly, I independently interpreted the x-rays of the left tibia and fibula and see no evidence of an acute fracture. I reviewed the radiology report confirms my independent interpretation. At this point in time, I feel she can be discharged to follow-up with her primary care provider. [id number]-[id number] analgesics, ice to affected areas, return instructions reviewed. Disposition is discharged home in stable condition. History & Record Review Discussion w/independent historian: Patient Radiography Diagnostic Testing: Clinical Impression(s) from Imaging Studies Femur X-Ray 06/02/25 15:15 IMPRESSION: No acute abnormality Reading Location: [facility] Sacrum and Coccyx X-Ray 06/02/25 15:15 IMPRESSION: No fracture. Reading Location: [facility] Tibia/Fibula X-Ray 06/02/25 15:15 IMPRESSION: No acute abnormality Reading Location: [facility] Discharge Plan Triage Chief Complaint: Fall ED Provider: Baltazar Jiang Dx/Rx/DC Orders Clinical Impression: Fall, Contusion of sacral region, Contusion of left lower extremity Instructions: ED Coccyx or Sacrum Contusion, ED Contusion, Lower Extremity, ED Mechanical Fall Prescriptions: No Action meloxicam 15 mg tablet 15 mg PO DAILY naproxen 500 MG tablet 500 mg PO BID PRN Qty: 20 0RF venlafaxine 75 mg capsule,extended release 24hr 75 mg PO DAILY trazodone 50 mg tablet 50 mg PO QHS diltiazem HCl 180 mg capsule,extended release 24hr 180 mg PO DAILY isosorbide mononitrate 30 mg tablet extended release 24 hr 30 mg PO DAILY pantoprazole 20 mg tablet,delayed release (DR/EC) 20 mg PO DAILY magnesium oxide 400 mg (241.3 mg magnesium) tablet 400 mg PO DAILY metoprolol tartrate 25 mg tablet 25 mg PO BID PRN PRN (Reason: palpitations) dapagliflozin propanediol [Farxiga] 10 mg tablet 10 mg PO DAILY potassium chloride 20 mEq tablet extended release 20 meq PO DAILY fexofenadine [Suzanne Allergy] 60 mg tablet 60 mg PO BID metoprolol succinate 25 mg tablet extended release 24 hr 25 mg PO DAILY Qty: 90 3RF Primary Care Provider: Roberta Pugh NP Referrals: Ambrose Olivares DO [Med Staff - Urban Planning Professor, Family Practice] Activity Restrictions/Additional Instructions: Follow-up with your primary care provider in 1 week if not improving. Aloe-hck-tfabvlv medications like Tylenol or ibuprofen as needed for pain. Ice to affected areas. Print Language: Lebanese Disposition Disposition: Home, Self Care What to do if you have Problems For any increased pain, shortness of breath, bleeding, nausea or vomiting, chestpain, or any unexpected problems, contact your Primary Care Provider. Call [facility] ([phone]) or report tothe closest Emergency Room. Call 911 if necessary. 06/02/25 1612 Cosigner Signature (if applicable): CC: JORGE Pugh ~ Signed [facility]09-30-2025 Radiology Diagnostic study note [facility] Imaging Services [address] [place], [place] [address] Tibia & Fibula 2 Views MR#: [id number] Acct: [id number] Name: LISBETH VALDEZ Rep #: [id number] : 1970 F 54 From: Duane Padgett MD PCP: Dr. Ambrose Olivares DO Status: PRE ER Study:Tibia & Fibula 2 Views Date of Exam: 06/02/25 Exam# [id number] Ordering Dr: Baltazar Jiang MD PROCEDURE: TIBIA FIBULA 2 VIEWS 06/02/2025 REASON FOR EXAM: TRAUMA TECHNIQUE: Procedure Code: RADTF Modality: DX Procedure: TIBIA FIBULA 2 VIEWS Laterality: Left COMPARISON: Femur x-ray of the same day FINDINGS: Bones: No fracture Joints: Normal alignment at the knee and ankle. Soft tissues: Soft tissues are unremarkable. RAD/Tibia & Fibula 2 Views IMPRESSION: No acute abnormality Reading Location: [facility] CC: Dr. Baltazar Jiang MD; Dr. Ambrose Olivares DO ~ Hydraulic Design Engineer: Signed [facility]09-30-2025 Radiology Diagnostic study note [facility] Imaging Services [address] [place], [place] [id number] Femur Min 2 Views MR#: [id number] Acct: [id number] Name: LISBETH VALDEZ Rep #: [id number] : 1970 F 54 From: Duane Padgett MD PCP: Dr. Ambrose Olivares DO Status: PRE ER Study:Femur Min 2 Views Date of Exam: Exam# [id number] Ordering Dr: Baltazar Jiang MD PROCEDURE: FEMUR MIN 2 VIEWS 06/02/2025 REASON FOR EXAM: TRAUMA TECHNIQUE: Procedure Code: RADFEM Modality: DX Procedure: FEMUR MIN 2 VIEWS Laterality: Left COMPARISON: None FINDINGS: Bones: No fracture Joints: Normal alignment at the hip and knee. Soft tissues: Soft tissues are unremarkable. RAD/Femur Min 2 Views IMPRESSION: No acute abnormality Reading Location: [facility] CC: Dr. Baltazar Jiang MD; Dr. Ambrose Olivares DO ~ Hydraulic Design Engineer: Signed [facility]09-30-2025 Radiology Diagnostic study note [facility] Imaging Services [address] [place] [address] Sacrum-Coccyx min 2 Views MR#: [id number] Acct: [id number] Name: LISBETH VALDEZ Rep #: [id number] : 1970 F 54 From: Duane Padgett MD PCP: Dr. Ambrose Olivares DO Status: PRE ER Study:Sacrum-Coccyx min 2 Views Date of Exam: 06/02/25 Exam# [id number] Ordering Dr: Baltazar Jiang MD PROCEDURE: SACRUM-COCCYX MIN 2 VIEWS 06/02/2025 REASON FOR EXAM: TRAUMA TECHNIQUE: Procedure Code: RADSAC Modality: DX Procedure: SACRUM-COCCYX MIN 2 VIEWS COMPARISON: None FINDINGS: Bones: No fracture. Joints: Unremarkable Other: No foreign body RAD/Sacrum-Coccyx min 2 Views IMPRESSION: No fracture. Reading Location: [facility] CC: Dr. Baltazar Jiang MD; Dr. Ambrose Olivares DO ~ Hydraulic Design Engineer: Signed [facility]09-30-2025 Discharge summary Author Baltazar Jiang [facility] Note Date/Time June 02, 2025 4:12pm [facility] Medical Records Department [address] [place] [address] Emergency Department Summary 06/02/25 MR#: [id number] Acct: [id number] Name: LISBETH VALDEZ Rep #:[id number] : 1970 54 From: Baltazar Jiang MD PCP: Roberta Pugh NP-C Status:REG ER Location: ED HPI HPI - Fall History of Present Illness Chief Complaint: Fall Narrative Narrative: 54-year-old female past medical history of palpitations and tachycardia presentsafter fall off the back of a box truck. She states that she did not have the left portion up, turned around, and fell. This happened at 11:00, approximately4 hours ago. She denies hitting her head or loss of consciousness. Took a while for her to get up and stand because she was having left ankle and left lower leg pain. She states she has left ankle pain whenever she weightbears andwalks. She also has pain in the cleft of her buttocks, right near her tailbone. She denies hitting her head, loss of consciousness, or other injuries. She states her main concern is her left lower leg and her tailbone. She has not hada bowel movement since her injury. She took 2 Tylenol arthritis this morning which she usually takes. While she states her muscles and neck might be gettingstiff and sore, she denies any pain with movement of her neck, no other injuries. She states she does not take any blood thinners. [facility] Medical History Diarrhea Sleep apnea Arthritis History of back problems Claudication Nonrheumatic mitral valve prolapse Paroxysmal supraventricular tachycardia Nonsustained ventricular tachycardia Obesity Nicotine abuse Anxiety and depression Osteoarthritis Lumbar spondylosis Home Medications ?Medication ?Instructions ?Recorded ?Last Taken ?Type meloxicam 15 mg tablet 15 mg PO DAILY 07/12/18 Unkn own History naproxen 500 mg tablet 500 mg PO BID PRN #20 tabs 0 02/25/19 Unknown Rx metoprolol succinate 25 mg 25 mg PO DAILY #90 tabs Unknown Rx tablet,extended release 24 hr dapagliflozin propanediol 10 mg 10 mg PO DAILY 5 Unknown History tablet (Farxiga) diltiazem HCl 180 mg 180 mg PO DAILY 06/02/25 Unk nown History capsule,extended release 24 hr fexofenadine 60 mg tablet (Suzanne 60 mg PO BID Unknown History Allergy) isosorbide mononitrate 30 mg 30 mg PO DAILY 06/02/25 U nknown History tablet,extended release 24 hr magnesium oxide 400 mg (241.3 mg 400 mg PO DAILY 06/02 Unknown History magnesium) tablet metoprolol tartrate 25 mg tablet 25 mg PO BID PRN PRN palpitations 06/02/25 Unknown History pantoprazole 20 mg tablet,delayed 20 mg PO DAILY 06/02 Unknown History release potassium chloride 20 mEq 20 meq PO DAILY 06/02/25 Unk nown History tablet,extended release trazodone 50 mg tablet 50 mg PO QHS 06/02/25 Unknow n History venlafaxine 75 mg capsule,extended 75 mg PO DAILY 05/06 Unknown History release 24 hr Allergy/AdvReac Type Severity Reaction Status Date / Time egg Allergy Mild Unknown Verified 06/02/25 13:41 gluten Allergy Hives Verified 06/02/25 13:41 lactose Allergy Nausea/Vom/ Verified 06/02/25 13:41 Diarrhea Family History Father Hypertension Cancer leukemia Mother CAD (coronary artery disease) Heart disease Brain aneurysm Surgical History H/O right heart catheterization History of laparoscopic cholecystectomy History of left heart catheterization History of tubal ligation H/O arthroscopy of left knee History of History of hysterectomy History of rhinoplasty Social History household members: significant other Smoking Status: Former smoker quit date: 07/01/18 Tobacco: How many years used: 30 how long ago did patient quit smokin, 1ppd second hand exposure: Yes alcohol intake: current substance use type: does not use caffeine: Yes Type: coffee Number of servings: 2 ROS ROS ED ROS Narrative Review of systems positive for left lower leg pain left ankle pain. Positive sacrum/coccyx pain. Worse with movement and weightbearing. No hitting of head,no loss of consciousness, no pain with range of motion of neck. No nausea or vomiting, no other symptoms. EXAM Physical Exam Narrative Exam Narrative: GCS 15. ABCs intact. HEENT examination grossly unremarkable. PERRL, EOMI. Neck soft and supple without meningismus, no vertebral point tenderness or bony step-off. Full range of motion without pain. Cardiovascular examination regular rate and rhythm. Lungs are clear to auscultation bilaterally. The abdomen is soft and nontender with positive bowel sounds. Neurological examination is nonfocal, nonlateralizing. Musculoskeletal examination shows no tenderness to palpation in the left hip area. No proximal fibular head tenderness. Positive tenderness palpation left lateral malleolus. Palpable dorsalis pedis pulse. No palpable Achilles tendon deficit. Able to plantarflexand dorsiflex foot. Able to lift leg off bed. No radicular symptoms. Const Vital Signs: 06/02/25 13:41 06/02/25 14:32 Temperature 97.5 F L Temperature Source Temporal Pulse Rate 75 Respiratory Rate 18 Respiratory Effort Normal Non-Labored Blood Pressure 117/67 Blood Pressure Mean 83 Pulse Ox 100 Oxygen Delivery Method Room Air MDM MDM MDM Narrative Medical decision making narrative: Differential diagnosis includes but not limited to left ankle fracture versus sprain versus tibia and fibula fracture versus contusion. She may have more of a sacral/coccyx contusion versus fracture. X-rays were obtained of the sacrum and coccyx as well as the left femur and left tibia/fibula. Patient declined any analgesics orally here currently. On my independent visual interpretation of the x-rays of the sacrum and coccyx, there is no evidence of an acute fracture. I reviewed the radiology report which confirms my independent interpretation. Additionally, on my independent interpretation of the x-ray of the left femur there is no fracture. I reviewed the radiology report as well which confirms my independent interpretation. Lastly, I independently interpreted the x-rays of the left tibia and fibula and see no evidence of an acute fracture. I reviewed the radiology report confirms my independent interpretation. At this point in time, I feel she can be discharged to follow-up with her primary care provider. Dbuc-[id number] analgesics, ice to affected areas, return instructions reviewed. Disposition is discharged home in stable condition. History & Record Review Discussion w/independent historian: Patient Radiography Diagnostic Testing: Clinical Impression(s) from Imaging Studies Femur X-Ray 06/02/25 15:15 IMPRESSION: No acute abnormality Reading Location: [id number] Sacrum and Coccyx X-Ray 06/02/25 15:15 IMPRESSION: No fracture. Reading Location: [facility] Tibia/Fibula X-Ray 06/02/25 15:15 IMPRESSION: No acute abnormality Reading Location: [id number] Discharge Plan Triage Chief Complaint: Fall ED Provider: Baltazar Jiang Dx/Rx/DC Orders Clinical Impression: Fall, Contusion of sacral region, Contusion of left lower extremity Instructions: ED Coccyx or Sacrum Contusion, ED Contusion, Lower Extremity, ED Mechanical Fall Prescriptions: No Action meloxicam 15 mg tablet 15 mg PO DAILY naproxen 500 MG tablet 500 mg PO BID PRN Qty: 20 0RF venlafaxine 75 mg capsule,extended release 24hr 75 mg PO DAILY trazodone 50 mg tablet 50 mg PO QHS diltiazem HCl 180 mg capsule,extended release 24hr 180 mg PO DAILY isosorbide mononitrate 30 mg tablet extended release 24 hr 30 mg PO DAILY pantoprazole 20 mg tablet,delayed release (DR/EC) 20 mg PO DAILY magnesium oxide 400 mg (241.3 mg magnesium) tablet 400 mg PO DAILY metoprolol tartrate 25 mg tablet 25 mg PO BID PRN PRN (Reason: palpitations) dapagliflozin propanediol [Farxiga] 10 mg tablet 10 mg PO DAILY potassium chloride 20 mEq tablet extended release 20 meq PO DAILY fexofenadine [Suzanne Allergy] 60 mg tablet 60 mg PO BID metoprolol succinate 25 mg tablet extended release 24 hr 25 mg PO DAILY Qty: 90 3RF Primary Care Provider: Roberta Pugh NP Referrals: Ambrose Olivares DO [Med Staff - Urban Planning Professor, [facility]] Activity Restrictions/Additional Instructions: Follow-up with your primary care provider in 1 week if not improving. Wuxf-wez-txbqhwp medications like Tylenol or ibuprofen as needed for pain. Ice to affected areas. Print Language: Lebanese Disposition Disposition: Home, Self Care What to do if you have Problems For any increased pain, shortness of breath, bleeding, nausea or vomiting, chestpain, or any unexpected problems, contact your Primary Care Provider. Call [facility] ([phone]) or report to the closest Emergency Room. Call 911 if necessary. 06/02/25 1612 <Electronically signed by Baltazar Jiang MD> Cosigner Signature (if applicable): CC: JORGE Pugh ~ Signed [facility] Work Phone: 1(974) 291-512601-03-2025 Evaluation + Plan noteExtracted from: Title:Clinical Document Author:JARETT COATS MD Date:09/05/24 Procedure: Left Heart Cathet erization Indication: chest pain Post Op diagnosis: patent coronaries Condition: stable Discharge: Home Follow up: 1-2 weeks in Office Future Appointments Appointment Date:10/03/2024 09:15:00 AM Scheduled Provider:DANIELA COATS Location:[facility] Appointment Type:CV OV Appointment Date:12/08/2024 08:30:00 AM Scheduled Provider: Location:CT Appointment Type:yyCT Coronary Extracardiac Appointment Date:12/08/2024 10:30:00 AM Scheduled Provider: Location:CT Appointment Type:*CT Coronary Angiography w+w/o Contrast Appointment Date:02/04/2025 11:00:00 AM Scheduled [facility] Location:[facility] Appointment Type:PC OV Diagnostic Tests Pending * Complete Blood Count 09/05/24 * Prothrombin Time - Panel 09/05/24 Future Scheduled Tests Laboratory* Troponin I High Sensitivity 08/20/24 Radiology* CT Coronary Angiography w+w/o Contrast 12/08/24 * CT Coronary Extracardiac 12/08/24 [facility] 01-03-2025 Hospital Discharge instructions Patient Education 09/05/2024 11:38:04 3- Heart Cath/PCI radial (06/2018)(CUSTOM) HEART CATHETERIZATION/PCI (radial) Discharge Instructions DIET Drink plenty of fluids for the next 48 hours to help your kidneys flush the heart cath dye out of your system ACTIVITY For the next 48 hours: Do not deep bend the wrist Do not lift, push, or pull anything over 5 pounds Do not use the hand/arm to support your weight when rising from a chair or bed Do not drive For the next 7 days: Do not submerse your procedure site in water Do not swim, wash dishes, or take tub baths You may write, eat, type, and shower WOUND CARE Keep current dressing on for the next 24 hours, then remove, wash, dry, and apply a band aid. Keep a Band-Aid on your procedure site for the next 3-4 days Change the Band-Aid daily or if it gets wet/soiled AFTER YOU GO HOME, CALL YOUR DOCTOR FOR: Any increase in bruising or tenderness from the procedure site Any redness, pus, or other signs of infection at the site A temperature above 100.5 Severe pain at the site DIAL 911 AND RETURN TO THE HOSPITAL FOR: Any bleeding from the procedure site. The site may be bruised or tender, but it should not be bleeding at any time. If your site begins to bleed, hold firm pressure on it and dial 911 to return to the hospital Any increase in swelling at the procedure site. An increase in swelling could mean the area is bleeding under the skin. Hold firm pressure to the site and dial 911 to return to the hospital Document Released: 08/20/2006 Document Revised: 08/06/2013 Document Reviewed: 08/21/2014 [employer] Patient Information 2015 [employer]. This information is not intended to replace advicegiven to you by your health care provider. Make sure you discuss any questions you have with your health care provider. 09/05/2024 10:27:39 Moderate Conscious Sedation, Adult Moderate Conscious Sedation, Adult Sedation is the use of medicines to promote relaxation and relieve discomfort and anxiety. Moderateconscious sedation is a type of sedation. Under moderate conscious sedation, you are less alert than normal, but you are still able to respond to instructions, touch, or both. Moderate conscious sedation is used during short medical and dental procedures. It is milder than deep sedation, which is a type of sedation under which you cannot be easily woken up. It is also milder than general anesthesia, which is the use of medicines to make you unconscious. Moderate conscious sedation allows you to return to your regular activities sooner. Tell a health care provider about: Any allergies you have. All medicines you are taking, including vitamins, herbs, eye drops, creams, and drac-wra-hnxgwye medicines. Use of steroids (by mouth or creams). Any problems you or family members have had with sedatives and anesthetic medicines. Any blood disorders you have. Any surgeries you have had. Any medical conditions you have, such as sleep apnea. Whether you are or may be . Any use of cigarettes, alcohol, marijuana, or street drugs. What are the risks? Generally, this is a safe procedure. However, problems may occur, including: Getting too much medicine (oversedation). Nausea. Allergic reaction to medicines. Trouble breathing. If this happens, a breathing tube may be used to help with breathing. It will beremoved when you are awake and breathing on your own. Heart trouble. Lung trouble. What happens before the procedure? Staying hydrated Follow instructions from your health care provider about hydration, which may include: Up to 2 hours before the procedure you may continue to drink clear liquids, such as water, clear fruit juice, black coffee, and plain tea. Eating and drinking restrictions Follow instructions from your health care provider about eating and drinking, which may include: 8 hours before the procedure stop eating heavy meals or foods such as meat, fried foods, or fatty foods. 6 hours before the procedure stop eating light meals or foods, such as toast or cereal. 6 hours before the procedure stop drinking milk or drinks that contain milk. 2 hours before the procedure stop drinking clear liquids. Medicine Ask your health care provider about: Changing or stopping your regular medicines. This is especially important if you are taking diabetes medicines or blood thinners. Taking medicines such as aspirin and ibuprofen. These medicines can thin your blood. Do not take these medicines before your procedure if your health care provider instructs you not to. Tests and exams You will have a physical exam. You may have blood tests done to show: ?How well your kidneys and liver are working. ?How well your blood can clot. General instructions Plan to have someone take you home from the hospital or clinic. If you will be going home right after the procedure, plan to have someone with you for 24 hours. What happens during the procedure? An IV tube will be inserted into one of your veins. Medicine to help you relax (sedative) will be given through the IV tube. The medical or dental procedure will be performed. What happens after the procedure? Your blood pressure, heart rate, breathing rate, and blood oxygen level will be monitored often until the medicines you were given have worn off. Do not drive for 24 hours. This information is not intended to replace advice given to you by your health care provider. Make sure you discuss any questions you have with your health care provider. Document Released: 05/15/2002 Document Revised: 08/02/2018 Document Reviewed: 12/09/2016 [employer] Patient Education 2020 [employer]. Follow Up Care 08/25/2024 08:38:11 With:JARETT COATS MD Address: [address] [place] [address]- [phone] When:10/03/2024 09:15:00 [facility] 01-03-2025 Summary of episode note Discharge Instructions Thank you for allowing [facility] to assist you with your healthcare needs. The following is importantdischarge information regarding your hospital visit. Your Care Team ROBERTA PUGH APRN-CATERER'S AIDE What to do next Scheduled Follow-Up Appointments Appointment Type When With Where Contact Information StatusCV OV 10/03/2024 09:15 AM [facility] Extracardiac 12/08/2024 08:[address] Confirmed *CT Coronary Angiography w+w/o Contrast 12/08/2024 10:[address] Confirmed PC OV 02/04/2025 11:00 AM EDT ROBERTA PUGH APRN-CATERER'S AIDE [address] [id number] Confirmed Follow Up Appointments Follow Up with JARETT COATS MD When:10/03/2024 09:15 AM EST Where:[address] [place] [address] Allergies Eggs Vomit/diarrhea Glutens Bloatin, gas-non Celiac Lactose diarrhea, gas, bloating seasonal enviromental Typical Medications Please ask your primary doctor or pharmacist before taking any other medication not listed, including over the counter drugs, herbal medications, vitamins and or supplements as they may interact withyour home medications. What How Much When Why Instructions Last Dose Unchanged acetaminophen (acetaminophen 500 mg oral tablet) 2 tab(s) by mouth Three (3) times a day as needed for pain or fever Unchanged albuterol (ProAir HFA MDI (90 mcg/ inh) inhalation aerosol) 2 puff(s) by inhalation Every 6 hours as needed for as needed for wheezing Wheezing Tobacco use Duration: 90 Days Unchanged dilTIAZem (Cardizem CD 180 mg/ 24 hours oral capsule, extended release) 1 cap by mouth Once a day Unchanged isosorbide mononitrate (isosorbide mononitrate 30 mg oral tablet, extended release) 1 tab(s) by mouth Once a day (in the morning) Unchanged meloxicam (meloxicam 15 mg oral tablet) 1 tab(s) by mouth Once a day Arthralgia Unchanged metoprolol (Metoprolol Tartrate 25 mg oral tablet) 1 tab(s) by mouth Two (2) times a day as needed for palpitations Unchanged montelukast (montelukast 10 mg oral tablet) 1 tab(s) by mouth Once a day Allergies Duration: 90 Days Unchanged nitroGLYcerin (nitroglycerin 0.4 mg sublingual tablet) 1 tab(s) under the tongue Every 5 minutes as needed for as needed for chest pain not to exceed 3 doses/ 15 min--if pain persists, seek medical attention Unchanged pantoprazole (Protonix 20 mg oral enteric coated tablet) 1 tab(s) by mouth Once a day Unchanged traZODone (traZODone 50 mg oral tablet) 1 tab(s) by mouth Daily at bedtime Insomnia Unchanged venlafaxine (venlafaxine 75 mg oral capsule, extended release) 1 cap by mouth Once a day Depression Anxiety Duration: 90 Days Please take this list to your next doctor s visit. Bring all medications you take, including over the counter medications, herbals and other supplements with you to your doctor s visit. Patients and families are reminded to discard old lists and to update any records with all medication providers or retail pharmacies. Education Materials HEART CATHETERIZATION/PCI (radial) Discharge Instructions DIET Drink plenty of fluids for the next 48 hours to help your kidneys flush the heart cath dye out of your system ACTIVITY For the next 48 hours: Do not deep bend the wrist Do not lift, push, or pull anything over 5 pounds Do not use the hand/arm to support your weight when rising from a chair or bed Do not drive For the next 7 days: Do not submerse your procedure site in water Do not swim, wash dishes, or take tub baths You may write, eat, type, and shower WOUND CARE Keep current dressing on for the next 24 hours, then remove, wash, dry, and apply a band aid. Keep a Band-Aid on your procedure site for the next 3-4 days Change the Band-Aid daily or if it gets wet/soiled AFTER YOU GO HOME, CALL YOUR DOCTOR FOR: Any increase in bruising or tenderness from the procedure site Any redness, pus, or other signs of infection at the site A temperature above 100.5 Severe pain at the site DIAL 911 AND RETURN TO THE HOSPITAL FOR: Any bleeding from the procedure site. The site may be bruised or tender, but it should not be bleeding at any time. If your site begins to bleed, hold firm pressure on it and dial 911 to return to the hospital Any increase in swelling at the procedure site. An increase in swelling could mean the area is bleeding under the skin. Hold firm pressure to the site and dial 911 to return to the hospital Document Released: 08/20/2006 Document Revised: 08/06/2013 Document Reviewed: 08/21/2014 [facility] Patient Information 2015 [employer]. This information is not intended to replace advicegiven to you by your health care provider. Make sure you discuss any questions you have with your health care provider. Moderate Conscious Sedation, Adult Sedation is the use of medicines to promote relaxation and relieve discomfort and anxiety. Moderateconscious sedation is a type of sedation. Under moderate conscious sedation, you are less alert than normal, but you are still able to respond to instructions, touch, or both. Moderate conscious sedation is used during short medical and dental procedures. It is milder than deep sedation, which is a type of sedation under which you cannot be easily woken up. It is also milder than general anesthesia, which is the use of medicines to make you unconscious. Moderate conscious sedation allows you to return to your regular activities sooner. Tell a health care provider about: Any allergies you have. All medicines you are taking, including vitamins, herbs, eye drops, creams, and rktz-goi-ykqewrr medicines. Use of steroids (by mouth or creams). Any problems you or family members have had with sedatives and anesthetic medicines. Any blood disorders you have. Any surgeries you have had. Any medical conditions you have, such as sleep apnea. Whether you are or may be . Any use of cigarettes, alcohol, marijuana, or street drugs. What are the risks? Generally, this is a safe procedure. However, problems may occur, including: Getting too much medicine (oversedation). Nausea. Allergic reaction to medicines. Trouble breathing. If this happens, a breathing tube may be used to help with breathing. It will beremoved when you are awake and breathing on your own. Heart trouble. Lung trouble. What happens before the procedure? Staying hydrated Follow instructions from your health care provider about hydration, which may include: Up to 2 hours before the procedure you may continue to drink clear liquids, such as water, clear fruit juice, black coffee, and plain tea. Eating and drinking restrictions Follow instructions from your health care provider about eating and drinking, which may include: 8 hours before the procedure stop eating heavy meals or foods such as meat, fried foods, or fatty foods. 6 hours before the procedure stop eating light meals or foods, such as toast or cereal. 6 hours before the procedure stop drinking milk or drinks that contain milk. 2 hours before the procedure stop drinking clear liquids. Medicine Ask your health care provider about: Changing or stopping your regular medicines. This is especially important if you are taking diabetes medicines or blood thinners. Taking medicines such as aspirin and ibuprofen. These medicines can thin your blood. Do not take these medicines before your procedure if your health care provider instructs you not to. Tests and exams You will have a physical exam. You may have blood tests done to show: ? How well your kidneys and liver are working. ? How well your blood can clot. General instructions Plan to have someone take you home from the hospital or clinic. If you will be going home right after the procedure, plan to have someone with you for 24 hours. What happens during the procedure? An IV tube will be inserted into one of your veins. Medicine to help you relax (sedative) will be given through the IV tube. The medical or dental procedure will be performed. What happens after the procedure? Your blood pressure, heart rate, breathing rate, and blood oxygen level will be monitored often until the medicines you were given have worn off. Do not drive for 24 hours. This information is not intended to replace advice given to you by your health care provider. Make sure you discuss any questions you have with your health care provider. Document Released: 05/15/2002 Document Revised: 08/02/2018 Document Reviewed: 12/09/2016 [employer] Patient Education 2020 [employer] Additional Information VACCINATE! IT SAVES LIVES! Members of the community who have not yet received the COVID-19 vaccine and would like to receive it can visit one of [facility] vaccine clinics. There are many vaccine clinic locations within the [facility]. For locations and available times, please visit https://gettheshot.coronavirus.[place].gov/. It is important to note that some COVID mobile vaccine clinics are held outdoors and may be canceled in rainy or stormy conditions. To learn more about pediatric vaccinations (ages 5-11), we invite you to visit the [facility] webpage. [email or web address]/[email or web address] [email or web address] learn more about the COVID-19 vaccine, we invite you to visit the CDC website for a list of frequently asked questions.https://www.cdc.gov/coronavirus/2019-ncov/vaccines/faq.html [employer] Patient Portal Access Instructions: Stay connected with your healthcare team and access your personal medical information anytime with the [employer] Patient Portal. Please follow the directions below to create your [employer] account: 1.Access the email account you provided upon registration to the hospital/physician office.2.Look for an invitation email from [facility].3.Open the email and access the invitation link: AcceptInvitation to [employer].4.Fill in the required talbot to create your account. To access your account, visit [employer]. Click the blue button labeled Access Patient Portal and then log in with the username and password that you created in the steps above. You will be able to view your test results, lab results, a summary of your visits, upcoming appointments and more. There is also a convenient messaging option where you can send secure messages to your p rovider. In addition, you will have the ability to download any documents or summaries to your computer and/or send the information securely to a physician. Remember that your healthcare information is confidential, so carefully consider who you will allowto register on the [employer] Patient Portal for access to your information. You can also access the [employer] Patient Portal on the [employer] Anywhere kitty. Simply click on Patient Portal and then log into your account. If you would like to receive a full copy of your medical records, please contact the [facility] Medical Records Department by calling [phone], Sunday through Sunday between 8 a.m. and 4:30 p.m. HOW TO SAFELY DISPOSE OF PRESCRIPTION MEDICATIONS Please use one of the following methods to safely dispose of your unused medications. 1.Use a drug disposal kit: the drug disposal pouch allows you to safely discard your old and unuseddrugs. Ask your nurse to give you one when you are discharged.2.Visit a local take-back location: Many local pharmacies and police departments have programs that collect old and unwanted prescriptiondrugs. Call your local pharmacy or go to http://[employer]/7Z2Ho1p to find one close to you.3.Make use of household items: Use cat litter or old coffee grounds to dispose medications if other options arenot available. Mix your drugs with these household products, seal them in an airtight container andthrow it into the garbage. Call [facility]: [phone] to be sure your drugs can be disposed of in this way. Some medicines may require a different approach.4.Never flush your medications down the toilet. IF YOU HAVE BEEN PRESCRIBED AN OPIOID FOR PAIN If you have been prescribed an opioid (such as hydrocodone, oxycodone or morphine), it is critical to understand the possible side effects and risks of opioid pain medications. Even when taken as directed, opioids can have several side effects including: Tolerance, meaning you might need to take more of a medication for the same pain relief. Nausea, vomiting and/or constipation. Sleepiness, dizziness, dry mouth, confusion, depression or itching. Physical dependence, meaning you have withdrawal symptoms when a medication is stopped, can develop within a few days. KNOW YOUR RESPONSIBILITIES It is important to know exactly how much and how often to take the opioid pain medications you are prescribed. Never take opioids in higher amounts or more often than prescribed. Do not combine opioids with alcohol or other drugs that cause drowsiness, such as benzodiazepines, also known as benzos, including diazepam and alprazolam, muscle relaxants or sleep aids. Never sell or share prescription opioids. This is illegal. Store opioids in a secure place and out of reach of others (including children, family, friends and visitors). The last page of this document has been signed and retained as a CHART COPY. Signatures Patient Education Materials 3- Heart Cath/PCI radial (06/2018)(CUSTOM) Moderate Conscious Sedation, Adult Medication Leaflets My discharge plan and instructions have been reviewed and explained to me and I,LISBETH VALDEZ understand my current condition and have read and understand these discharge instructions. I have received a written copy of the plan/instructions. If I have questions, I am aware that I should contact my doctor. Patient/Credentialing Assistant Signature: Date/Time: Relationship to Patient: Witness Name/Signature: Date/Time: [id number] History and physical note Procedure: Left Heart Catheterization Indication: chest pain Post Op diagnosis: patent coronaries Condition: stable Discharge: Home Follow up: 1-2 weeks in Office Digitally Signed by JARETT COATS MD on 09/05/2024 10:16 AM [id number] [facility]* Exam Date Time Procedure Performing Provider Status 09/05/24 9:32 AM Cardiac Catheterization -CV Lexi Chavez TECH; Auth (Verified) [id number] Note* Exam Date Time Procedure Performing Provider Status 08/29/24 11:31 AM Echocardiogram, Adult - CV TIFFANIE SEXTON MD; Auth (Verified) [facility]12-16-2024 Hospital Discharge instructions Patient Education 08/18/2024 18:17:31 Chest Pain, Uncertain Cause Uncertain Causes of Chest Pain Chest pain can happen for a number of reasons. Sometimes the cause can't be determined. If your condition does not seem serious, and your pain does not appear to be coming from your heart, your healthcare provider may recommend watching it closely. Sometimes the signs of a serious problem take moretime to appear. Many problems not related to your heart can cause chest pain. These include: Musculoskeletal. Costochondritis is an inflammation of the tissues around the ribs that can occur from trauma or overuse injuries, or a strain of the muscles of the chest wall Respiratory. Pneumonia, collapsed lung (pneumothorax), or inflammation of the lining of the chest and lungs (pleurisy) Gastrointestinal. Esophageal reflux, heartburn, ulcers, or gallbladder disease Anxiety and panic disorders Nerve compression and inflammation Rare miscellaneous problems such as aortic aneurysm (a swelling of the large artery coming out of the heart) or pulmonary embolism (a blood clot in the lungs) Home care After your visit, follow these recommendations: Rest today and avoid strenuous activity. Take any prescribed medicine as directed. Be aware of any recurrent chest pain and notice any changes Follow-up care Follow up with your healthcare provider if you do not start to feel better within 24 hours, or as advised. Call 911 Call 911 if any of these occur: A change in the type of pain: if it feels different, becomes more severe, lasts longer, or begins to spread into your shoulder, arm, neck, jaw or back Shortness of breath or increased pain with breathing Weakness, dizziness, or fainting Rapid heart beat Crushing sensation in your chest When to seek medical advice Call your healthcare provider right away if any of the following occur: Cough with dark colored sputum (phlegm) or blood Fever of 100.4 F (38 C) or higher, or as directed by your healthcare provider Swelling, pain or redness in one leg [phone] [employer]. [address] [place] [address]. All rights reserved. This information is not intended as a substitute for professional medical care. Always follow yourhealthcare professional's instructions. Follow Up Care 08/18/2024 15:13:58 With:JARETT COATS Address: [address] [facility] [address] [facility] [place] [address] [phone] Business (1) When:5-7 days only if needed With:Go to emergency room if symptoms worsen Address:Unknown When:2-4 days With:ROBERTA PUGH APRN-CATERER'S AIDE Address: [address] [facility] [place] [phone] When:2-4 days [facility] 12-16-2024 Note Discharge Instructions Thank you for allowing [facility] to assist you with your healthcare needs. The following is importantdischarge information regarding your hospital visit. Diagnosis from Today's Visit Chest pain Fatigue Hypomagnesemia What to Do Next Instructions from Your Care Team Please follow-up with your PCP for recheck within the next few days. If your symptoms acutely worsen, develop worsening chest pain, shortness of breath or other acute concerns please return to the emergency department for more emergent evaluation. You may also follow-up with her balance recesser. Your magnesium level was low here, we repleted your magnesium however your PCP may want to recheck your levels especially if you are still feeling fatigued. If you like to take maxh-nqb-tkkjjmy supplementsfor magnesium, I recommend magnesium glycinate 250 mg daily which can be purchased [id number]. Magnesium oxalate is also reasonable option. Would recommend avoid magnesium citrate as this can be harsh on her stomach and bowels. No qualifying data available. Post Acute Orders No qualifying data available. You Need to Schedule the Following Appointments Follow Up with JARETT COATS When:Within 5-7 days, only if needed Where:[address] [facility] [address] [facility] [place] [address] [phone] Business (1) Follow Up with Go to emergency room if symptoms worsen When:Within 2-4 days Follow Up with ROBERTA PUGH When:Within 2-4 days Where:[address] [facility] [place] [address] [phone] Allergies Eggs Vomit/diarrhea Glutens Bloatin, gas-non Celiac Lactose diarrhea, gas, bloating seasonal enviromental Typical Medications Please ask your primary doctor or pharmacist before taking any other medication not listed, including over the counter drugs, herbal medications, vitamins and or supplements as they may interact withyour home medications. What How Much When Why Instructions Last Dose Unchanged acetaminophen (acetaminophen 500 mg oral tablet) 2 tab(s) by mouth Three (3) times a day as needed for pain or fever Unchanged albuterol (ProAir HFA MDI (90 mcg/ inh) inhalation aerosol) 2 puff(s) by inhalation Every 6 hours as needed for as needed for wheezing Wheezing Tobacco use Duration: 90 Days Unchanged dilTIAZem (Cardizem CD 180 mg/ 24 hours oral capsule, extended release) 1 cap by mouth Once a day Unchanged meloxicam (meloxicam 15 mg oral tablet) 1 tab(s) by mouth Once a day Arthralgia Unchanged metoprolol (Metoprolol Tartrate 25 mg oral tablet) 1 tab(s) by mouth Two (2) times a day as needed for palpitations Unchanged montelukast (montelukast 10 mg oral tablet) 1 tab(s) by mouth Once a day Allergies Duration: 90 Days Unchanged pantoprazole (Protonix 20 mg oral enteric coated tablet) 1 tab(s) by mouth Once a day Unchanged traZODone (traZODone 50 mg oral tablet) 1 tab(s) by mouth Daily at bedtime Insomnia Unchanged venlafaxine (venlafaxine 75 mg oral capsule, extended release) 1 cap by mouth Once a day Depression Anxiety Duration: 90 Days Please take this list to your next doctor s visit. Bring all medications you take, including over the counter medications, herbals and other supplements with you to your doctor s visit. Patients and families are reminded to discard old lists and to update any records with all medication providers or retail pharmacies. Education Materials Uncertain Causes of Chest Pain Chest pain can happen for a number of reasons. Sometimes the cause can't be determined. If your condition does not seem serious, and your pain does not appear to be coming from your heart, your healthcare provider may recommend watching it closely. Sometimes the signs of a serious problem take moretime to appear. Many problems not related to your heart can cause chest pain. These include: Musculoskeletal. Costochondritis is an inflammation of the tissues around the ribs that can occur from trauma or overuse injuries, or a strain of the muscles of the chest wall Respiratory. Pneumonia, collapsed lung (pneumothorax), or inflammation of the lining of the chest and lungs (pleurisy) Gastrointestinal. Esophageal reflux, heartburn, ulcers, or gallbladder disease Anxiety and panic disorders Nerve compression and inflammation Rare miscellaneous problems such as aortic aneurysm (a swelling of the large artery coming out of the heart) or pulmonary embolism (a blood clot in the lungs) Home care After your visit, follow these recommendations: Rest today and avoid strenuous activity. Take any prescribed medicine as directed. Be aware of any recurrent chest pain and notice any changes Follow-up care Follow up with your healthcare provider if you do not start to feel better within 24 hours, or as advised. Call 911 Call 911 if any of these occur: A change in the type of pain: if it feels different, becomes more severe, lasts longer, or begins to spread into your shoulder, arm, neck, jaw or back Shortness of breath or increased pain with breathing Weakness, dizziness, or fainting Rapid heart beat Crushing sensation in your chest When to seek medical advice Call your healthcare provider right away if any of the following occur: Cough with dark colored sputum (phlegm) or blood Fever of 100.4 F (38 C) or higher, or as directed by your healthcare provider Swelling, pain or redness in one leg [phone] [employer]. [address] [place] [address]. All rights reserved. This information is not intended as a substitute for professional medical care. Always follow yourhealthcare professional's instructions. Additional Information VACCINATE! IT SAVES LIVES! Members of the community who have not yet received the COVID-19 vaccine and would like to receive it can visit one of [facility] vaccine clinics. There are many vaccine clinic locations within the [facility]. For locations and available times, please visit www.gettheshot.coronavirus.[place].gov/. It is important to note that some COVID mobile vaccine clinics are held outdoors and may be canceled in rainy or stormy conditions. To learn more about pediatric vaccinations (ages 5-11), we invite you to visit the [facility] webpage. https://www.[facility].org/pages/1509-Tnbal-Oktbvarjaji-Qryosmwexn-Xltod-Lzc stions.htmlTo learn more about the COVID-19 vaccine, we invite you to visit the CDC website for a list of frequently asked questions. https://www.cdc.gov/coronavirus/2019-ncov/vaccines/faq.html [facility] Patient Portal Access Instructions: Stay connected with your healthcare team and access your personal medical information anytime with the [facility] Patient Portal. If you would like a full copy of your medical records please contact the [facility] Medical Records Department Sunday through Sunday between 8a.m. and 4:30p.m. Please follow the directions below to access the portal: 1.Access the email account you provided upon registration to the hospital.2.Look for an invitation email from [facility].3.Open the email and access the invitation link: Accept Invitation to [facility]4.Fill in the required talbot to create your account. Sign into [email or web address] with your username and password that you created in the above steps to stay up to date. You can then view a summary of results, a summary of your visits, and the ability to download your summaries to your computer or send the information securely to a physician. Remember that your healthcare information is confidential, so carefully consider who you will allow to register on the [facility] Patient Portal for access to your information. You can also access the [facility] Patient Portal on the [employer]. Simply click on Health Records under [employer] and then click on the [facility] logo. HOW TO SAFELY DISPOSE OF PRESCRIPTION MEDICATIONS Please use one of the following methods to safely dispose of your unused medications. 1.Use a drug disposal kit: the drug disposal pouch allows you to safely discard your old and unuseddrugs. Ask your nurse to give you one when you are discharged.2.Visit a local take-back location: Many local pharmacies and police departments have programs that collect old and unwanted prescriptiondrugs. Call your local pharmacy or go to http://[employer]/9L9Bi0z to find one close to you.3.Make use of household items: Use cat litter or old coffee grounds to dispose medications if other options arenot available. Mix your drugs with these household products, seal them in an airtight container andthrow it into the garbage. Call [facility]: [phone] to be sure your drugs can be disposed of in this way. Some medicines may require a different approach.4.Never flush your medications down the toilet. IF YOU HAVE BEEN PRESCRIBED AN OPIOIDS FOR PAIN If you have been prescribed an opioid (such as hydrocodone, oxycodone or morphine), it is critical to understand the possible side effects and risks of opioid pain medications. Even when taken as directed, opioids can have several side effects including: Tolerance, meaning you might need to take more of a medication for the same pain relief. Nausea, vomiting and/or constipation. Sleepiness, dizziness, dry mouth, confusion, depression or itching. Physical dependence, meaning you have withdrawal symptoms when a medication is stopped ? this can develop within a few days. KNOW YOUR RESPONSIBILITIES It is important to know exactly how much and how often to take the opioid pain medications you are prescribed. Never take opioids in higher amounts or more often than prescribed. Do not combine opioids with alcohol or other drugs that cause drowsiness, such as benzodiazepines, also known as benzos,including diazepam and alprazolam, muscle relaxants or sleep aids. Never sell or share prescriptionopioids. This is illegal. Store opioids in a secure place and out of reach of others (including children, family, friends and visitors). The last page(s) of this document has been signed and retained as a CHART COPY Signatures Patient Education Materials Chest Pain, Uncertain Cause Medication Leaflets My discharge plan and instructions have been reviewed and explained to me and I,LISBETH VALDEZ understand my current condition and have read and understand these discharge instructions. I have received a written copy of the plan/instructions. If I have questions, I am aware that I should contact my doctor. Patient/Credentialing Assistant Signature: Date/Time: Relationship to Patient: Witness Name/Signature: Date/Time: [facility]12-16-2024 Note ORIGINAL EXAMINATION: TWO XRAY VIEWS OF THE CHEST 08/18/2024 4:17 pm COMPARISON: 08/19/2023 HISTORY: ORDERING SYSTEM PROVIDED HISTORY: Reason for Exam: CP started yesterday evening Chest Pain FINDINGS: Cardiomediastinal silhouette is within normal limits. There is no overt edema. No focal consolidation. Costophrenic angles are sharp. No pneumothorax. No acute osseous abnormality. IMPRESSION: No acute cardiopulmonary process. Interpreted by: Surekha Mendes Preliminary Report By: Surekha Mendes Electronically signed By Surekha Mendes Dictated Date: 08/18/2024 4:20:46 PM Prelim Date: 08/18/2024 4:21:33 PM Sign Date: 08/18/2024 4:21:33 PM [facility]ing [facility] Note Sinus rhythm Electronic Signature: SARAH KIDD DO 08/18/2024 15:32:[address] [place] [address] Evaluation + Plan note Future Appointments Appointment Date:10/25/2023 10:00:00 AM Scheduled Provider:ROBERTA PUGH Location:[facility] Appointment Type:PC OV Appointment Date:04/22/2024 09:30:00 AM Scheduled Provider:ROBERTA PUGH Location:[facility] Appointment Type:PC Wellness Annual Future Scheduled Tests Laboratory* Thyroid Stimulating Hormone 07/16/23 * Free T4 07/16/23 Radiology* MA Mammo Screening Bilateral w/ Sam 05/08/23 * MA Mammogram Screening Bilateral Routine w/o Sam 02/27/23 [facility] Evaluation + Plan note Future Appointments Appointment Date:04/22/2024 09:30:00 AM Scheduled Provider:ROBERTA PUGH Location:[facility] Appointment Type: Wellness Annual Future Scheduled Tests Laboratory* Thyroid Stimulating Hormone 07/16/23 * Free T4 07/16/23 Radiology* MA Mammo Screening Bilateral w/ Sam 05/08/23 * MA Mammogram Screening Bilateral Routine w/o Sam 02/27/23 [facility] Evaluation + Plan note Future Appointments Appointment Date:08/29/2024 11:00:00 AM Scheduled Provider: Location:RAD Appointment Type:Echo - Echocardiogram Adult Appointment Date:12/08/2024 08:30:00 AM Scheduled Provider: Location:CT Appointment Type:yyCT Coronary Extracardiac Appointment Date:12/08/2024 10:30:00 AM Scheduled Provider: Location:CT Appointment Type:*CT Coronary Angiography w+w/o Contrast Appointment Date:02/04/2025 11:00:00 AM Scheduled Provider:ROBERTA PUGH Location:[facility] Appointment Type:PC OV Future Scheduled Tests Laboratory* Cortisol Level 08/12/24 * Magnesium Level 08/12/24 * Lipid Profile 08/12/24 * Complete Metabolic Panel 08/12/24 * N-Terminal proBNP 08/12/24 Radiology* CT Coronary Angiography w+w/o Contrast 12/08/24 * CT Coronary Extracardiac 12/08/24 [facility] Evaluation + Plan note Future Appointments Appointment Date:08/29/2024 11:00:00 AM Scheduled Provider: Location:RAD Appointment Type:Echo - Echocardiogram Adult Appointment Date:12/08/2024 08:30:00 AM Scheduled Provider: Location:CT Appointment Type:yyCT Coronary Extracardiac Appointment Date:12/08/2024 10:30:00 AM Scheduled Provider: Location:CT Appointment Type:*CT Coronary Angiography w+w/o Contrast Appointment Date:02/04/2025 11:00:00 AM Scheduled Provider:ROBERTA PUGH Location:[facility] Appointment Type:PC OV Future Scheduled Tests Radiology* CT Coronary Angiography w+w/o Contrast 12/08/24 * CT Coronary Extracardiac 12/08/24 [facility] Evaluation + Plan note Future Appointments Appointment Date:09/05/2024 10:00:00 AM Scheduled Provider: Location:Heart Lab Appointment Type:CV Procedure - Heart Lab/Hybrid OR Appointment Date:09/08/2024 03:15:00 PM Scheduled Provider:MAGDA COATS Location:[facility] [place] Appointment Type:CV OV Appointment Date:12/08/2024 08:30:00 AM Scheduled Provider: Location:CT Appointment Type:yyCT Coronary Extracardiac Appointment Date:12/08/2024 10:30:00 AM Scheduled Provider: Location:CT Appointment Type:*CT Coronary Angiography w+w/o Contrast Appointment Date:02/04/2025 11:00:00 AM Scheduled Provider:ROBERTA PUGH Location:[facility] Appointment Type:PC OV Future Scheduled Tests Laboratory* Troponin I High Sensitivity 08/20/24 Radiology* CT Coronary Angiography w+w/o Contrast 12/08/24 * CT Coronary Extracardiac 12/08/24 [facility] Evaluation noteNo assessment information available [facility] Work Phone: Hospital course Narrative No data available for this section [facility] Hospital Discharge instructions No data available for this section [facility] Hospital Discharge instructionsAdditional Instructions Follow-up with your primary care provider in 1 week if not improving. Pvtv-rtz-tkzgvvz medications like Tylenol or ibuprofen as needed for pain. Ice to affected areas.[facility] Work Phone: Progress note No data available for this section [facility] Progress note Author Mendy Alexandre [facility] Note Date/Time June 24, 2025 1 0:33am [facility] [address] [place] [address] [address] [place] [address] OFFICE VISIT Date of Service: 06/24/25 MR#: [id number] Acct: [id number] Name: LISBETH VALDEZ Rep #: [id number] : 1970 Provider: JORGE Alexandre Age/Sex: 54/F Location: [facility] Status: Signed Intake Vital Signs 06/10/25 10:31 06/24/25 08:59 Height 5 ft 3 in 5 ft 3 in Weight: 172 lb BMI 30.4 Intake Visit Reasons: LEFT KNEE Chief Complaint: Left Knee 2 week follow up Accompanied by: Self Is patient in pain?: Yes Pain scale (1-10): 4 Allergies egg Allergy (Mild, Verified 06/24/25 09:03) Unknown gluten Allergy (Verified 06/24/25 09:03) Hives lactose Allergy (Verified 06/24/25 09:03) Nausea/Vom/Diarrhea Medications ?Medication ?Instructions ?Recorded ?Confirmed ?Type metoprolol succinate 25 mg 25 mg PO DAILY #90 tabs 06/24/25 Rx tablet,extended release 24 hr dapagliflozin propanediol 10 mg 10 mg PO DAILY 5 06/24/25 History tablet (Farxiga) diltiazem HCl 180 mg 180 mg PO DAILY 06/02/25 History capsule,extended release 24 hr fexofenadine 60 mg tablet (Suzanne 60 mg PO BID 06/24/25 History Allergy) isosorbide mononitrate 30 mg 30 mg PO DAILY 06/02/25 1 History tablet,extended release 24 hr magnesium oxide 400 mg (241.3 mg 400 mg PO DAILY 06/0206/24/25 History magnesium) tablet metoprolol tartrate 25 mg tablet 25 mg PO BID PRN PRN palpitations 06/02/25 06/24/25 History pantoprazole 20 mg tablet,delayed 20 mg PO DAILY 06/0206/24/25 History release potassium chloride 20 mEq 20 meq PO DAILY 06/02/25 History tablet,extended release venlafaxine 75 mg capsule,extended 75 mg PO DAILY 05/0606/24/25 History release 24 hr methylprednisolone 4 mg tablets in See Rx Instructions PO PER PKG DIR 06/10/25 06/24/25 Rx a dose pack (Medrol (David)) #21 tabs Have you fallen in the past year?: No PFSH Medical History Diarrhea Sleep apnea Arthritis History of back problems Claudication Nonrheumatic mitral valve prolapse Paroxysmal supraventricular tachycardia Nonsustained ventricular tachycardia Obesity Nicotine abuse Anxiety and depression Osteoarthritis Lumbar spondylosis Surgical History H/O right heart catheterization History of laparoscopic cholecystectomy History of left heart catheterization History of tubal ligation H/O arthroscopy of left knee History of History of hysterectomy History of rhinoplasty Family History Father Hypertension Cancer leukemia Mother CAD (coronary artery disease) Heart disease Brain aneurysm Social History household members: significant other Smoking Status: Former smoker quit date: 07/01/18 Tobacco: How many years used: 30 how long ago did patient quit smokin, 1ppd second hand exposure: Yes alcohol intake: current substance use type: does not use caffeine: Yes Type: coffee Number of servings: 2 HPI LEFT KNEE Details: This documentation accurately reflects the service provided and the decisions made by me, Mendy Alexandre NP-C 06/24/25 0859. Part of today?s visit was documented by Duc Hernandez MA, acting as scribe. LISBETH VALDEZ is a pleasant 54 year old F here today for 2 week f/u L knee injury/sprain. DOI 06/02/2025 after stepping backwards and fell out of the back of a box truck. Initially, had frequent episodes of knee giving out. Patient states that has significantly lessened. Overall rates she feels 50% improved atthis time. Did notice positive effect with oral Medrol Dosepak, Tylenol on as needed basis helped. Patient continues to wear the hinged knee brace with weightbearing activities which helps with stability. Mild flares of swelling after increased activity. HX left knee mfc chondral defect, synovitis bernardo withDr. Grubbs on 05/31/2016. She denies any problems with the knee prior to the fall. ROS Const All systems reviewed & are unremarkable except as noted in H and other (A&O x 3,no apparent distress. No recent illness.) ENT Denies dizziness Card Denies chest pain, Denies dyspnea and Denies edema Resp Denies cough, Denies dyspnea and Reports other (No recent URI) GI Reports system reviewed and no additional complaints, except as documented, Denies nausea and Denies vomiting Musc Reports as per HPI, Reports arthralgias and Reports joint swelling (improved) Neuro No dizziness and Yes other Psych Reports system reviewed and no additional complaints, except as documented Nestor/Lymph Denies easy bleeding and Denies easy bruising Ortho Exam General General: Yes no acute distress and Yes well groomed Neurologic: Yes alert and Yes oriented x3 Psychologic: Yes reasonable and appropriate Right Knee Date of injury: 06/02/25 Contralateral Normal: Yes Homans Sign: No KNEE: Skin is pink, warm, dry and intact. There is no ecchymosis or discoloration present, mild anterior swelling remains Range of motion: 0 to 110 degrees, stiff greater than 110 Palpation: Tender with palpation over the lateral joint line, no tenderness overthe IT band Special tests: Pavel positive; anterior drawer negative; posterior drawer negative; medial joint opening negative; lateral joint opening negative Lower leg is soft, nontender, easily compressible, Homans negative Gait: Ambulatory with mild left-sided limp Full range of distal joints with no symptom aggravation Distal motor or sensory intact with brisk cap refill at 2 seconds Office Procedures Ortho Injections Injections Yes Knee Left Is this a patient provided medication?: No Details: We discussed risk and benefits of injectable steroid. Obtained written and oral consent for injection. Under sterile conditions, skin was prepped with Betadineand alcohol prep, topical pain ease spray applied; injected the patient's left knee with 3cc 0.25% bupivacaine 3cc 1% lidocaine 1cc Kenalog (40mg) and was easily administered and tolerated well using a 22g 1 1/2 needle to the lateral joint space with knee in flexion at 90 degrees. The patient tolerated the injection well without any noted complication, No bleeding post injection, dry sterile bandage applied. Patient should call our office if redness develops, pain worsens or if they have any concerns. Office Meds Kenalog 40 mg/mL suspension for injection Performing Provider: JORGE Walker Performing Location: [facility] Administered by: JORGE Walker on 06/24/25 09:33 Dose Route Admin Location Dispensed Lot Number Expiration Date Pack age [facility] [employer] 40 mg intra-articular left knee 1 mL [id number] 09/03/26 [id number] [facility] Coding Level of Care Code Off vis,est,level 3 Diagnoses Sprain of collateral ligament of left knee, initial encounter S83.402A Encounter type: initial encounter Involved ligament of knee: unspecified collateral ligament 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 Reviewed OTC Tylenol for symptom control in addition to elevation, rest, activity modification and ice as needed. We reviewed topical pain relief formulas available OTC for additional symptom control. Recommend continuing hinged knee brace with weightbearing activity, may remove with rest and sleep. We discussed benefits of PT versus home exercise plan. At this time, patient prefers home exercises. AAOS knee conditioning exercises were provided to beginslowly at 3 times per week and advance to most days of the week as tolerated. Plan for follow-up here in 4 weeks, sooner for changes or concerns. Patient may contact the office at any time if she wishes to pursue PT eval and treat. Patient in agreement with plan of care This document has been transcribed using [employer] dictation software. There may beincorrect words, spelling, and punctuation. Orders: Orders Ortho Injections Today M25.562 - Pain in left knee, S83.402A - Sprain of unspecified collateral ligament of left knee, initial encounter Clinical Quality Measures Falls Risk Screening/Assistive Devices Have you fallen in the past year?: No 06/24/25 1602 <Electronically signed by Mendy PATEL> Date _ Mendy PATEL Cosigner Signature: Date (if applicable) CC: ~ [facility] Work Phone: Reason for referral (narrative)No reason for referral information availableWOhio[facility] Work Phone: Summary Purpose Family History Relationship Condition Age at Onset Recorded Date/T mary anne father Hypertension Unknown Malignant neoplasm Unknown mother Coronary artery disease Unknown Cardiac disease Unknown Cerebral aneurysm Unknown No Family History Records Found Advance Directives Advance Directive Response Recorded Date/ Time Do you have a Healthcare Power of Photo Engraver? No June 02, 2025 2:33pm Advance Directives No August 09, 2018 10:05am Advance Directive Response Recorded Date/ Time Do you have a Healthcare Power of Photo Engraver? No June 02, 2025 1:33pm Advance Directives No August 09, 2018 9:05am Chief Complaint and Reason for Visit Chief Complaint Admit Date fallJune 02, 2025 1:39pm Chief Complaint Admit Date fallJune 02, 2025 1:39pm LEFT KNEE June 10, 2025 10 :22am Room 3 June 10, 2025 10 :37am Chief Complaint Admit Date fallJune 02, 2025 1:39pm LEFT KNEE June 10, 2025 10 :22am Room 3 June 10, 2025 10 :37am LEFT KNEE June 24, 2025 8 :59am Reason for Visit Admit Date Left knee sprain June 10, 2025 10 :22am Left knee sprain June 24, 2025 8 :59am Additional Source Comments Patient Care team informatio n (unrecognized section and content) Team Status: Active Member Role/Relationship Status Dates Roberta Pugh NP, PATIENT CARE COORDINATOR-C Primary care physician Active Team Status: Inactive Member Role/Relationship Status Dates Baltazar Jiang MD Emergency Department Physician Active Start: June 02, 2025 End: June 02, 2025 Roberta Pugh PATIENT CARE COORDINATOR, PATIENT CARE COORDINATOR-C Primary care physician Active Start: June 02, 2025 End: June 02, 2025 Team Status: Inactive Member Role/Relationship Status Dates Roberta Pugh NP, PATIENT CARE COORDINATOR-C Primary care physician Active Start: June 10, 2025 End: June 10, 2025 Roberta Pugh NP, PATIENT CARE COORDINATOR-C Referring Provider Active S tart: June 10, 2025 End: June 10, 2025 JORGE Walker Attending physician Active Start: June 10, 2025 End: June 10, 2025 Team Status: Inactive Member Role/Relationship Status Dates Roberta Pugh NP, PATIENT CARE COORDINATOR-C Primary care physician Active Start: June 10, 2025 End: June 10, 2025 Dr. Nicolás Salazar MD Attending physician Active Start: June 10, 2025 End: June 10, 2025 Team Status: Active Member Role/Relationship Status Dates Roberta Pugh NP, PATIENT CARE COORDINATOR-C Primary care physician Active Start: June 10, 2025 Roberta Pugh NP, PATIENT CARE COORDINATOR-C Referring Provider Active S tart: June 10, 2025 JORGE Walker Attending physician Active Start: June 10, 2025 Team Status: Inactive Member Role/Relationship Status Dates Baltazar Jiang MD Attending physician Active Sta rt: June 02, 2025 End: June 02, 2025 Baltazar Jiang MD Emergency Department Physician Active Start: June 02, 2025 End: June 02, 2025 JORGE Lockwood NP Primary care physician Active Start: June 02, 2025 End: June 02, 2025 Team Status: Inactive Member Role/Relationship Status Dates JORGE Lockwood NP Primary care physician Active Start: June 24, 2025 End: June 24, 2025 JORGE Lockwood NP Referring Provider Active S tart: June 24, 2025 End: June 24, 2025 JORGE Walker Attending physician Active Start: June 24, 2025 End: June 24, 2025 INFORMATION SOURCE (unrecogn ized section and content) DATE CREATED AUTHOR 10/30/2023 [facility] ([place]) DATE CREATED AUTHOR AUTHOR'S ORGANIZ ATION 12/12/2024 [facility] DATE CREATED AUTHOR AUTHOR'S ORGANIZ ATION 02/23/2025 [facility] DATE CREATED AUTHOR AUTHOR'S ORGANIZ ATION 06/25/2025 [facility] Goals (unrecognized section and content) Goals may be documented in a n alternate section FOR RECORDS PERTAINING TO PATIENTS WHO ARE OR HAVE BEEN ENROLLED IN A CHEMICAL DEPENDENCY/SUBSTANCEABUSE PROGRAM, SOME INFORMATION MAY BE OMITTED. This clinical summary was aggregated from multiple sources. Caution should be exercised in using it in the provision of clinical care. This summary normalizes information from multiple sources, and as a consequence, information in this document may materially change the coding, format and clinical context of patient data. In addition, data may be omitted in some cases. CLINICAL DECISIONS SHOULD BE BASED ON THE PRIMARY CLINICAL RECORDS. [employer] provides no warranty or guarantee of the accuracy or completeness of information in this document.
== END | disposition home or self-care (01) ==
LOC: MRI 13:22
PROVIDERS: PCP Nurse Practitioner Primary Care; Referring Provider Nurse Practitioner Family; Visit Provider Nurse Practitioner Family
DX: S83.402A Sprain of unspecified collateral ligament of left knee, initial encounter (principal)
CPT/HCPCS: 73721